=== PATIENT | male | born 1955 ===

== ENCOUNTER 2016-12-28 00:20 | Inpatient (IN) | payer OTHER ==
[2016-12-28 00:20] VITALS: BMI 34.0
[2016-12-28] MEDS ORDERED: Sodium Chloride 0.9% 1,000 ML IV STA ×2 (00:39→01:04)
[2016-12-28] MEDS ORDERED: Insulin Regular 100 units/ml IV ONE (01:04)
--- NOTE | 2016-12-28 01:06 | ED PDOC ---
HPI: Abdomen Time Seen by Provider: 12/28/16 00:25 Chief Complaint (Nursing): Abdominal Pain Chief Complaint (Provider): Abdominal Pain, Nausea, Vomiting History Per: Patient History/Exam Limitations: no limitations Onset/Duration Of Symptoms: Days (3 days) Current Symptoms Are (Timing): Still Present Pain Scale Rating Of: 8 Location Of Pain/Discomfort: Epigastric Associated Symptoms: Other (Also denies associated shortness of breath and fever.). denies: Fever, Diarrhea, Chest Pain Exacerbating Factors: denies: Cough Additional Complaint(s): Baljinder Romero, a 61 year old male, with history of hypertension,diabetes and gastroparesis presents to the ED with abdominal pain, nausea and vomiting x3( non bloody, non bilious). Patient is well known by the provider for multiple visits to the ED related to his current complaint. The patient reports that he has had 3 days of epigastric pain associated with nausea and vomiting. He also reports, that he just returned back from a trip to [place] where he initially began to feel ill. The patient sates that his pain is consistent with previous gastroparesis attacks and rates his pain at an 8/10 on the pain scale. Denies associated diarrhea, shortness of breath, cough, fever and chest pain. PMD: Quincy Smith Past Medical History Reviewed: Historical Data, Nursing Documentation, Vital Signs Vital Signs: Last Vital Signs Temp 97.9 F 12/28/16 00:29 Pulse 115 H 12/28/16 00:29 Resp 16 12/28/16 00:29 BP 199/90 H 12/28/16 00:29 Pulse Ox 99 12/28/16 02:30 - Medical History PMH: Diabetes, HTN, Hypercholesterolemia, Kidney Stones, Pancreatitis Denies: HIV, Chronic Kidney Disease, Sexually Transmitted Disease Other PMH: Gastroparesis - Surgical History Surgical History: Cholecystectomy - Family History Family History: States: [place] (Father of heart attack) - Social History Current smoker - smoking cessation education provided: No Ex-Smoker (has not smoked in the last 12 months): No Alcohol: None Drugs: Denies - Home Medications Home Medications: Ambulatory Orders Medication Instructions Recorded Atorvastatin Calcium [Lipitor] 10 mg PO DAILY #0 tablet 03/16/16 Furosemide [Lasix] 40 mg PO DAILY #0 tab 04/14/16 Glimepiride [Amaryl] 4 mg PO BID #0 tablet 07/05/16 Lisinopril [Zestril] 10 mg PO HS #0 tab 07/05/16 Metformin HCl [Glucophage] 1,000 mg PO BID #0 tablet 07/05/16 Metoclopramide [Reglan] 10 mg PO TID #0 tab 07/05/16 Gabapentin [Neurontin] 300 mg PO TID 08/14/16 Oxycodone HCl/Acetaminophen 1 tab PO Q6H PRN 08/14/16 [Percocet 7.5-325 mg Tablet] Pioglitazone [Actos] 30 mg PO DAILY 08/14/16 Insulin Detemir [Levemir] 42 units SC HS 10/13/16 Insulin Lispro [Humalog (Insulin 42 units SC TID 12/28/16 Lispro)] Metoprolol Succinate [Toprol XL] 25 mg PO DAILY 12/28/16 - Allergies Allergies/Adverse Reactions: Allergies Allergy/AdvReac Type Severity Reaction Status Date / Time iodine Allergy URTICARIA Verified 10/16/16 11:38 Review of Systems Constitutional: Negative for: Fever Cardiovascular: Negative for: Chest Pain Respiratory: Negative for: Cough, Shortness of Breath Gastrointestinal: Positive for: Nausea, Vomiting (x3; non bloody;non bilious), Abdominal Pain. Negative for: Diarrhea Physical Exam - Reviewed Nursing Documentation Reviewed: Yes Vital Signs Reviewed: Yes - Physical Exam Appears: Positive for: Uncomfortable Head Exam: Positive for: ATRAUMATIC, NORMOCEPHALIC Skin: Positive for: Normal Color, Warm, Dry ENT: Positive for: Other (Mucous membranes are tacky) Neck: Positive for: Normal, Painless ROM, Supple Cardiovascular/Chest: Positive for: Regular Rate, Rhythm. Negative for: Chest Non Tender, Tachycardia Respiratory: Positive for: Normal Breath Sounds. Negative for: Wheezing, Respiratory Distress Gastrointestinal/Abdominal: Positive for: Soft, Tenderness (Epigastric tenderness) Back: Positive for: Normal Inspection. Negative for: L CVA Tenderness, R CVA Tenderness Extremity: Positive for: Normal ROM. Negative for: Tenderness, Deformity, Swelling Neurologic/Psych: Positive for: Alert, Oriented - Laboratory Results Result Diagrams: 12/28/16 01:16 12/28/16 01:16 - ECG O2 Sat by Pulse Oximetry: 99 (RA) Pulse Ox Interpretation: Normal Medical Decision Making Medical Decision Makin:25 Initial Impression: 61 year old male presenting with abdominal pain, nausea and vomiting in known setting of gastroparesis. Initial Plan: * EKG * CMP * Lactic acid plasma * Lipase * Urine dipstick * CBC * Portable CXR * Dilaudid 2mg IVP * Dilaudid 1mgIVP * Dilaudid 2mg IVP Q4H PRN * HumuLIN R 8 units IV * Lasix 40mg PO daily * Levemir 40 units SC HS * Lipitor 10mg PO daily Labs reviewed significant for leukocytosis and hypoglycemia which is consistent with patients multiple previous gastroparetic events. Patient will be admitted for further treatment. Case discussed with Dr. Parra admitting resident contracts law professor who is covering Dr. Smith. Condition: Fair _ Scribe Attestation Documented by Kelly He acting as a scribe for Werner Spears MD Provider Attestation All medical record entries made by the Scribe were at my direction and personally dictated by me. I have reviewed the chart and agree that the record accurately reflects my personal performance of the history, physical exam, medical decision making, and the department course for this patient. I have also personally directed, reviewed, and agree with the discharge instructions and disposition. Disposition - Clinical Impression Clinical Impression: Gastroparesis diabeticorum - Patient ED Disposition Is Patient to be Admitted: Yes Discussed With : Isac Neal Counseled Patient/Family Regarding: Studies Performed, Diagnosis - Disposition Disposition Time: 01:00 Condition: FAIR
[2016-12-28 01:19] LABS: BASO # 0.1 K/uL (0.0-0.2); BASO % 0.5 % (0.0-2.0); EOS % 0.1 % (0.0-4.0); HEMATOCRIT 43.2 % (35.0-51.0); LYMPH # 1.8 K/uL (1.0-4.3); LYMPH % 9.9 % (20.0-40.0); MEAN CELL VOLUME 78.8 fl (80.0-94.0); MEAN CORPUSCULAR HEMOGLOBIN 25.3 pg (27.0-31.0); MEAN CORPUSCULAR HGB CONC 32.2 g/dL (33.0-37.0); MEAN PLATELET VOLUME 9.4 fl (7.2-11.7); MONO # 1.7 K/uL (0.0-0.8); MONO % 9.1 % (0.0-10.0); NEUT % 80.4 % (50.0-75.0); PLATELET COUNT 259 K/uL (130-400); RED CELL DISTRIBUTION WIDTH 15.7 % (11.5-14.5); WHITE BLOOD COUNT 18.6 K/uL (4.8-10.8)
[2016-12-28 01:27] LABS: ALB/GLOB RATIO 1.4 (1.0-2.1); ALKALINE PHOSPHATASE 54 U/L (38-126); ALT/SGPT 28 U/L (21-72); AST/SGOT 20 U/L (17-59); BLOOD UREA NITROGEN 19 mg/dl (9-20); CALCIUM 9.1 mg/dL (8.4-10.2); CARBON DIOXIDE 19 mmol/L (22-30); CHLORIDE 90 mmol/L (98-107); GFR AFRICAN-AMERICAN > 60; GLUCOSE,RANDOM 352 mg/dL (75-110); POTASSIUM 4.3 MMOL/L (3.6-5.0); SODIUM 125 mmol/l (132-148); TOTAL PROTEIN 7.8 G/DL (6.3-8.2)
--- NOTE | 2016-12-28 01:57 | CP.PCM.HP ---
Addendum entered and electronically signed by Kemi George MD 12/28/16 13:36: Patient was seen and examined at bedside this morning with Dr. Tang. Patient feeling better at this evaluation. Denies nausea and vomiting, but still complaining of mild periumbilical abdominal pain. Patient reports this is the similar pain that he has had for last years. Denies CP, SOB,chills, diarrheas, or other complains. Alert, awake, and oriented X 3 CV: RRR, normal S1, S2 Respiratory: clear to auscultation bilateral abd: soft, mild diffuse tender to palpation, no rebound, no rigidity or guarding noted. Normal bowel sounds. ext: no edema, no calf tenderness noted Plan:Advance diet to liquid diet, if tolerated continue advancing to soft diet and regular diet. -F/U repeat BMP tomorrow -Will continue monitoring case discussed with Dr. Tang Original Note: <Isac Neal - Last Filed: 12/28/16 02:13> History of Present Illness - History of Present Illness History of Present Illness: 61 male with PMHx of T2DM, HTN, diabetic neuropathy, gastroparesis, presented to ED with complaints of vomiting and abdominal pain x 3 days. Patient states was in [place] for vacation for the last 10 days and was in his usual state of health. However, 3 days ago began with abdominal pain and vomiting. Abdominal pain is similar to pain in the past episodes of gastroparesis located epigastric and vomiting was non-bloody/non-bilous. Patient did not want to be seen at hospital in [place], therefore when he landed today, he came right to ED. Patient has been admitted for similar complaints in the past. Patient denies fever, chills, palpitations, chest pain, diarrhea, headache, weakness, numbness. Patient has also been evaluated by GI Dr Suarez previously for gastroparesis. Of note, patient admits to not taking his medications in previous 3 days due to symptoms. PMD: Dr. Mcdonald PMH: DM w/Gastroparesis, HTN, HLD, Diabetic neuropathy, Drug Use Hx PSH: Lap CCY Allergies: IV contrast (hives) Meds: As per chart POC 342 in ED, 1L bolus of NS given, 8U of Insulin given. 2mg Dilaudid given. Afebrile. Present on Admission - Present on Admission Any Indicators Present on Admission: Yes History of Uncontrolled Diabetes: Yes Review of Systems - Review of Systems All systems: reviewed and no additional remarkable complaints except (mentioned in HPI) Past Patient History - Infectious Disease Hx of Infectious Diseases: None - Tetanus Immunizations Tetanus Immunization: Unknown - Past Medical History & Family History Past Medical History?: Yes - Past Social History Smoking Status: Never Smoked - CARDIAC Hx Hypercholesterolemia: Yes Hx Hypertension: Yes - PULMONARY Hx Respiratory Disorders: No - NEUROLOGICAL Hx Neurological Disorder: No - HEENT Hx HEENT Problems: No - RENAL Hx Chronic Kidney Disease: No Hx Kidney Stones: Yes - ENDOCRINE/METABOLIC Hx Endocrine Disorders: Yes (DM2) - HEMATOLOGICAL/ONCOLOGICAL Hx Human Immunodeficiency Virus (HIV): No - INTEGUMENTARY Hx Dermatological Problems: No - MUSCULOSKELETAL/RHEUMATOLOGICAL Hx Musculoskeletal Disorders: No Hx Falls: No - GASTROINTESTINAL Hx Pancreatitis: Yes - GENITOURINARY/GYNECOLOGICAL Hx Sexually Transmitted Disorders: No - PSYCHIATRIC Hx Psychophysiologic Disorder: No Hx Substance Use: No - SURGICAL HISTORY Hx Cholecystectomy: Yes - ANESTHESIA Hx Anesthesia: Yes Hx Anesthesia Reactions: No Hx Malignant Hyperthermia: No Meds Allergies/Adverse Reactions: Allergies Allergy/AdvReac Type Severity Reaction Status Date / Time iodine Allergy URTICARIA Verified 10/16/16 11:38 Physical Exam - Constitutional Appears: Non-toxic, In Acute Distress (due to pain) - Head Exam Head Exam: ATRAUMATIC, NORMAL INSPECTION, NORMOCEPHALIC - Eye Exam Eye Exam: EOMI, Normal appearance - ENT Exam ENT Exam: Normal Exam - Neck Exam Neck exam: Positive for: Normal Inspection - Respiratory Exam Respiratory Exam: Clear to Auscultation Bilateral, NORMAL BREATHING PATTERN. absent: Decreased Breath Sounds, Rhonchi, Wheezes - Cardiovascular Exam Cardiovascular Exam: REGULAR RHYTHM, RRR, +S1, +S2 - GI/Abdominal Exam GI & Abdominal Exam: Hyperactive Bowel Sounds, Soft, Tenderness (diffuse) - Extremities Exam Extremities exam: Positive for: normal inspection. Negative for: calf tenderness, pedal edema - Back Exam Back exam: NORMAL INSPECTION - Neurological Exam Neurological exam: Alert, Oriented x3 - Psychiatric Exam Psychiatric exam: Normal Affect, Normal Mood - Skin Skin Exam: Dry, Intact, Normal Color, Warm Results - Vital Signs Recent Vital Signs: Last Vital Signs Temp 97.9 F 12/28/16 00:29 Pulse 115 H 12/28/16 00:29 Resp 16 12/28/16 00:29 BP 199/90 H 12/28/16 00:29 Pulse Ox 99 12/28/16 01:06 - Labs Result Diagrams: 12/28/16 01:16 12/28/16 01:16 Labs: Laboratory Results - last 24 hr 12/28/16 12/28/16 12/28/16 01:16 01:16 01:16 WBC 18.6 H D RBC 5.48 Hgb 13.9 Hct 43.2 MCV 78.8 L MCH 25.3 L MCHC 32.2 L RDW 15.7 H Plt Count 259 MPV 9.4 Neut % (Auto) 80.4 H Lymph % (Auto) 9.9 L [place] % (Auto) 9.1 Eos % (Auto) 0.1 Baso % (Auto) 0.5 Neut # 15.0 H Lymph # 1.8 [place] # 1.7 H Eos # 0.0 Baso # 0.1 Sodium 125 L Potassium 4.3 Chloride 90 L Carbon Dioxide 19 L Anion Gap 20 BUN 19 Creatinine 0.7 L Est GFR ( Amer) > 60 Est GFR (Non-Af Amer) > 60 Random Glucose 352 H Lactic Acid 1.1 Calcium 9.1 Total Bilirubin 1.0 AST 20 ALT 28 Alkaline Phosphatase 54 Total Protein 7.8 Albumin 4.5 Globulin 3.3 Albumin/Globulin Ratio 1.4 Assessment & Plan - Assessment and Plan (Free Text) Assessment: 61 yo male with PMHx of T2DM, HTN, diabetic neuropathy, gastroparesis admitted for intractable abdominal pain and vomiting 2ndary to diabetic gastroparesis with associated hyponatremia. Plan: 1) Intractable abdominal pain, secondary to gastroparesis - Vitals stable except for elevated BP - Pain control with Dilaudid - Alternating Zofran/Reglan - NPO diet, advance as tolerated - Continue to monitor - Due to multiple admissions/ED visits and poor IV access requiring PICC, consider more permanent IV access via port-a-cath. 2) Nausea & vomiting, likely 2/2 gastroparesis - Zofran 4mg, IV, Q6H - Reglan 10mg, IV, ACTID - Pepcid 20mg, BID, PO 3) Leukocytosis - Most c/w stress response given absence of febrile illness, no dysuria, CXR w/ o changes when compared to prior. - Repeat CBC in AM 4) T2DM, controlled - Poorly controlled diabetic, no signs of DKA or hyperosmolar at this time. - Accu-checks ACHS - Insulin sliding scale (Medium) - Levemir 40U HS ordered - held home meds including daytime insulin due to decreased caloric intake 5) Hyponatremia, moderate - Likely secondary to GI losses - s/p 2L of NS - c/w 125cc/hr of NS - repeat chemistries in AM 6) Hypertension, uncontrolled - Likely due to medication non-compliance and pain - Restart home medications - Continue to monitor on telemetry floor 7) DVT prophylaxis -Lovenox 40mg, SC, Daily - Date & Time Date: 12/28/16 Time: 02:04 <Quincy Mcdonald - Last Filed: 12/29/16 07:10> Results - Vital Signs Recent Vital Signs: Last Vital Signs Temp 98.4 F 12/29/16 05:23 Pulse 79 12/29/16 05:23 Resp 18 12/29/16 05:23 BP 124/66 12/29/16 05:23 Pulse Ox 97 12/29/16 05:23 - Labs Result Diagrams: 12/28/16 07:00 12/28/16 08:30 Labs: Laboratory Results - last 24 hr 12/28/16 12/28/16 12/28/16 05:43 07:00 08:30 WBC 15.9 H RBC 4.88 Hgb 12.4 Hct 38.8 MCV 79.5 L MCH 25.5 L MCHC 32.1 L RDW 15.7 H Plt Count 219 MPV 9.0 Neut % (Auto) 69.2 Lymph % (Auto) 16.4 L [place] % (Auto) 12.7 H Eos % (Auto) 0.8 Baso % (Auto) 0.9 Neut # 11.1 H Lymph # 2.6 [place] # 2.0 H Eos # 0.1 Baso # 0.1 Sodium 129 L Potassium 3.6 Chloride 98 Carbon Dioxide 21 L Anion Gap 14 BUN 14 Creatinine 0.6 L Est GFR ( Amer) > 60 Est GFR (Non-Af Amer) > 60 POC Glucose (mg/dL) 228 H Random Glucose 224 H Calcium 7.9 L Total Bilirubin 0.7 AST 17 ALT 25 Alkaline Phosphatase 42 Total Protein 6.3 Albumin 3.5 D Globulin 2.7 Albumin/Globulin Ratio 1.3 12/28/16 12/28/16 12/28/16 10:59 16:23 22:12 WBC RBC Hgb Hct MCV MCH MCHC RDW Plt Count MPV Neut % (Auto) Lymph % (Auto) [place] % (Auto) Eos % (Auto) Baso % (Auto) Neut # Lymph # [place] # Eos # Baso # Sodium Potassium Chloride Carbon Dioxide Anion Gap BUN Creatinine Est GFR ( Amer) Est GFR (Non-Af Amer) POC Glucose (mg/dL) 226 H 244 H 253 H Random Glucose Calcium Total Bilirubin AST ALT Alkaline Phosphatase Total Protein Albumin Globulin Albumin/Globulin Ratio 12/29/16 05:10 WBC RBC Hgb Hct MCV MCH MCHC RDW Plt Count MPV Neut % (Auto) Lymph % (Auto) [place] % (Auto) Eos % (Auto) Baso % (Auto) Neut # Lymph # [place] # Eos # Baso # Sodium Potassium Chloride Carbon Dioxide Anion Gap BUN Creatinine Est GFR ( Amer) Est GFR (Non-Af Amer) POC Glucose (mg/dL) 146 H Random Glucose Calcium Total Bilirubin AST ALT Alkaline Phosphatase Total Protein Albumin Globulin Albumin/Globulin Ratio Attending/Attestation - Attestation I have personally seen and examined this patient.: Yes I have fully participated in the care of the patient.: Yes I have reviewed all pertinent clinical information: Yes
[2016-12-28 02:53] LABS: PARTIAL THROMBOPLASTIN TIME 25.8 SECONDS (23.3-32.5)
[2016-12-28 03:23] LABS: RBC URINE 9 /hpf (0-3); URINE BILIRUBIN NEGATIVE (NEGATIVE); URINE BLOOD MODERATE (NEGATIVE); URINE COLOR YELLOW (YELLOW); URINE GLUCOSE (UA) >=500 mg/dL (Normal); URINE KETONE 80 mg/dL (NEGATIVE); URINE LEUKOCYTE ESTERASE NEG Leu/uL (Negative); URINE PROTEIN 100 mg/dL (NEGATIVE); URINE UROBILINOGEN 0.2-1.0 mg/dL (0.2-1.0); WBC URINE < 1 /hpf (0-5)
[2016-12-28 04:19] LABS: NEUTROPHIL 76 % (42-75); REACTIVE LYMPHOCYTES 3 % (0-0); TOTAL CELLS COUNTED 100
[2016-12-28] MEDS: Sodium Chloride 0.9% 1,000 ML IV SCH ×3 (06:02→19:50)
[2016-12-28] MEDS: Insulin Regular 100 units/ml SC SCH ×4 (06:51→22:26)
[2016-12-28 08:36] LABS: BASO # 0.1 K/uL (0.0-0.2); BASO % 0.9 % (0.0-2.0); EOS # 0.1 K/uL (0.0-0.7); EOS % 0.8 % (0.0-4.0); HEMATOCRIT 38.8 % (35.0-51.0); LYMPH # 2.6 K/uL (1.0-4.3); LYMPH % 16.4 % (20.0-40.0); MEAN CELL VOLUME 79.5 fl (80.0-94.0); MEAN CORPUSCULAR HEMOGLOBIN 25.5 pg (27.0-31.0); MEAN CORPUSCULAR HGB CONC 32.1 g/dL (33.0-37.0); MONO % 12.7 % (0.0-10.0); NEUT # 11.1 K/uL (1.8-7.0); NEUT % 69.2 % (50.0-75.0); RED CELL DISTRIBUTION WIDTH 15.7 % (11.5-14.5); WHITE BLOOD COUNT 15.9 K/uL (4.8-10.8)
--- NOTE | 2016-12-28 08:53 | RAD ---
HISTORY: Admission. Portable study 01:33. COMPARISON: 10/16/2016. FINDINGS: LUNGS: No active pulmonary disease. PLEURA: No significant pleural effusion identified, no pneumothorax apparent. CARDIOVASCULAR: No radiographic findings to suggest acute or significant cardiovascular disease. OSSEOUS STRUCTURES: No significant abnormalities. VISUALIZED UPPER ABDOMEN: Normal. OTHER FINDINGS: None. IMPRESSION: No active disease. No significant interval change compared to the prior examination(s).
[2016-12-28 09:04] LABS: ALB/GLOB RATIO 1.3 (1.0-2.1); ALKALINE PHOSPHATASE 42 U/L (38-126); ALT/SGPT 25 U/L (21-72); AST/SGOT 17 U/L (17-59); BILIRUBIN,TOTAL 0.7 mg/dl (0.2-1.3); BLOOD UREA NITROGEN 14 mg/dl (9-20); CALCIUM 7.9 mg/dL (8.4-10.2); CARBON DIOXIDE 21 mmol/L (22-30); CHLORIDE 98 mmol/L (98-107); GFR AFRICAN-AMERICAN > 60; GLUCOSE,RANDOM 224 mg/dL (75-110); POTASSIUM 3.6 MMOL/L (3.6-5.0); SODIUM 129 mmol/l (132-148); TOTAL PROTEIN 6.3 G/DL (6.3-8.2)
[2016-12-28] MEDS: Enoxaparin 40 mg Syringe SC SCH (12:50)
--- NOTE | 2016-12-28 19:11 | CARD ---
APPROVED REPORT EKG Measurement Heart [id number] <Conclusion> Sinus tachycardia Possible Left atrial enlargement Borderline ECG
[2016-12-28] MEDS ORDERED: Insulin Detemir 100 Units/ml Inj SC SCH (22:00)
[2016-12-29] MEDS: Insulin Regular 100 units/ml SC SCH ×3 (06:32→16:53)
[2016-12-29 07:42] LABS: HEMATOCRIT 43.4 % (35.0-51.0); MEAN CELL VOLUME 80.4 fl (80.0-94.0); MEAN CORPUSCULAR HEMOGLOBIN 25.5 pg (27.0-31.0); MEAN CORPUSCULAR HGB CONC 31.7 g/dL (33.0-37.0); RED CELL DISTRIBUTION WIDTH 15.7 % (11.5-14.5); WHITE BLOOD COUNT 13.9 K/uL (4.8-10.8)
[2016-12-29 07:59] LABS: BLOOD UREA NITROGEN 10 mg/dl (9-20); CALCIUM 8.4 mg/dL (8.4-10.2); CARBON DIOXIDE 24 mmol/L (22-30); CHLORIDE 99 mmol/L (98-107); GFR AFRICAN-AMERICAN > 60; GLUCOSE,RANDOM 161 mg/dL (75-110); POTASSIUM 3.3 MMOL/L (3.6-5.0); SODIUM 133 mmol/l (132-148)
[2016-12-29] MEDS ORDERED: Potassium Chloride 20 mEq ER Tab PO ONE (08:28)
--- NOTE | 2016-12-29 08:37 | CP.PCM.DIS ---
<Kemi George - Last Filed: 12/29/16 09:13> Provider - Provider Date of Admission: 12/28/16 00:48 Attending physician: Quincy Mcdonald MD Primary care physician: Quincy Mcdonald MD Time Spent in preparation of Discharge (in minutes): 30 Diagnosis - Discharge Diagnosis (1) Gastroparesis Status: Chronic Priority: High Comment: Improved. Tolerating PO. F/U with GI and PMD as outpatient. (2) Abdominal pain Status: Acute Priority: High Comment: Most likely due to Gastroparesis. Resolving. (3) Hyponatremia Status: Acute Priority: Medium Comment: Resolved during admission (4) Diabetes mellitus type 2 in obese Status: Chronic Priority: Medium Comment: Continue with current managment and follow up as outpatient with PMD. Hospital Course - Lab Results Lab Results: Most Recent Lab Values WBC 13.9 K/uL (4.8-10.8) H 12/29/16 06:00 RBC 5.39 Mil/uL (4.40-5.90) 12/29/16 06:00 Hgb 13.8 g/dL (12.0-18.0) 12/29/16 06:00 Hct 43.4 % (35.0-51.0) 12/29/16 06:00 MCV 80.4 fl (80.0-94.0) 12/29/16 06:00 MCH 25.5 pg (27.0-31.0) L 12/29/16 06:00 MCHC 31.7 g/dL (33.0-37.0) L 12/29/16 06:00 RDW 15.7 % (11.5-14.5) H 12/29/16 06:00 Plt Count 216 K/uL (130-400) 12/29/16 06:00 MPV 9.0 fl (7.2-11.7) 12/28/16 07:00 Neut % (Auto) 69.2 % (50.0-75.0) 12/28/16 07:00 Lymph % (Auto) 16.4 % (20.0-40.0) L 12/28/16 07:00 [place] % (Auto) 12.7 % (0.0-10.0) H 12/28/16 07:00 Eos % (Auto) 0.8 % (0.0-4.0) 12/28/16 07:00 Baso % (Auto) 0.9 % (0.0-2.0) 12/28/16 07:00 Neut # 11.1 K/uL (1.8-7.0) H 12/28/16 07:00 Lymph # 2.6 K/uL (1.0-4.3) 12/28/16 07:00 [place] # 2.0 K/uL (0.0-0.8) H 12/28/16 07:00 Eos # 0.1 K/uL (0.0-0.7) 12/28/16 07:00 Baso # 0.1 K/uL (0.0-0.2) 12/28/16 07:00 Neutrophils % (Manual) 76 % (42-75) H 12/28/16 01:16 Lymphocytes % (Manual) 9 % (20-50) L 12/28/16 01:16 Reactive Lymphs % 3 % (0-0) H 12/28/16 01:16 Monocytes % (Manual) 12 % (0-10) H 12/28/16 01:16 Platelet Estimate Normal (NORMAL) 12/28/16 01:16 Anisocytosis (manual) Slight 12/28/16 01:16 Target Cells Slight 12/28/16 01:16 Tear Drop Cells Slight 12/28/16 01:16 PT 10.7 SECONDS (9.6-11.2) 12/28/16 02:23 INR 1.03 (0.92-1.08) 12/28/16 02:23 APTT 25.8 SECONDS (23.3-32.5) 12/28/16 02:23 Sodium 133 mmol/l (132-148) 12/29/16 06:00 Potassium 3.3 MMOL/L (3.6-5.0) L 12/29/16 06:00 Chloride 99 mmol/L (98-107) 12/29/16 06:00 Carbon Dioxide 24 mmol/L (22-30) 12/29/16 06:00 Anion Gap 13 (10-20) 12/29/16 06:00 BUN 10 mg/dl (9-20) 12/29/16 06:00 Creatinine 0.6 mg/dL (0.8-1.5) L 12/29/16 06:00 Est GFR ( Amer) > 60 12/29/16 06:00 Est GFR (Non-Af Amer) > 60 12/29/16 06:00 POC Glucose (mg/dL) 146 mg/dL (65-110) H 12/29/16 05:10 Random Glucose 161 mg/dL (75-110) H 12/29/16 06:00 Lactic Acid 1.1 MMOL/L (0.7-2.1) 12/28/16 01:16 Calcium 8.4 mg/dL (8.4-10.2) 12/29/16 06:00 Total Bilirubin 0.7 mg/dl (0.2-1.3) 12/28/16 08:30 AST 17 U/L (17-59) 12/28/16 08:30 ALT 25 U/L (21-72) 12/28/16 08:30 Alkaline Phosphatase 42 U/L (38-126) 12/28/16 08:30 Total Protein 6.3 G/DL (6.3-8.2) 12/28/16 08:30 Albumin 3.5 g/dL (3.5-5.0) D 12/28/16 08:30 Globulin 2.7 gm/dL (2.2-3.9) 12/28/16 08:30 Albumin/Globulin Ratio 1.3 (1.0-2.1) 12/28/16 08:30 Lipase 85 U/L (23-300) 12/28/16 01:48 Urine Color Yellow (YELLOW) 12/28/16 03:14 Urine Clarity Clear (Clear) 12/28/16 03:14 Urine pH 6.0 (5.0-8.0) 12/28/16 03:14 Ur Specific [place] 1.023 (1.003-1.030) 12/28/16 03:14 Urine Protein 100 mg/dL (NEGATIVE) 12/28/16 03:14 Urine Glucose (UA) >=500 mg/dL (Normal) 12/28/16 03:14 Urine Ketones 80 mg/dL (NEGATIVE) 12/28/16 03:14 Urine Blood Moderate (NEGATIVE) 12/28/16 03:14 Urine Nitrate Negative (NEGATIVE) 12/28/16 03:14 Urine Bilirubin Negative (NEGATIVE) 12/28/16 03:14 Urine Urobilinogen 0.2-1.0 mg/dL (0.2-1.0) 12/28/16 03:14 Ur Leukocyte Esterase Neg Jennifer/uL (Negative) 12/28/16 03:14 Urine RBC (Auto) 9 /hpf (0-3) H 12/28/16 03:14 Urine Microscopic WBC < 1 /hpf (0-5) 12/28/16 03:14 Ur Squamous Epith Cells < 1 /hpf (0-5) 12/28/16 03:14 - Hospital Course Hospital Course: 61 male with PMHx of T2DM, HTN, diabetic neuropathy, gastroparesis, presented to ED complaining of vomiting and abdominal pain x 3 days admitted for intractable abdominal pain and vomiting secondary to diabetic gastroparesis with associated hyponatremia. During admission patient was manage with NPO status and diet was advance as tolerated, antiemetics, and home medications. Hyponatremia resolved during admission. Patient was seen and examined at bedside this morning with Dr. Tang, and patient denies nausea,vomiting or diarrhea, and reports that he is tolerating PO well. Stable to be discharge home an will follow as outpatient with PMD in one week or as needed, and f/u with GI doctor for further Gastroparesis management. Home medications: Continue with current home medications Continue accu-checks before insulin administration - Date & Time of H&P Date of H&P: 12/28/16 Time of H&P: 01:55 Discharge Exam - Head Exam Head Exam: ATRAUMATIC, NORMOCEPHALIC - ENT Exam ENT Exam: Mucous Membranes Moist - Respiratory Exam Respiratory Exam: Clear to PA & Lateral, NORMAL BREATHING PATTERN - Cardiovascular Exam Cardiovascular Exam: REGULAR RHYTHM, +S1, +S2 - GI/Abdominal Exam GI & Abdominal Exam: Normal Bowel Sounds, Soft, Tenderness (very mild tender to palpation , but no rebound tenderness, no rigidity or guarding noted). absent: Guarding, Rebound, Rigid - Extremities Exam Extremities exam: normal inspection Additional comments: No edema in lower extremities, no calf tenderness, Clara's sign negative bilateral - Neurological Exam Neurological exam: Alert, Oriented x3 - Psychiatric Exam Psychiatric exam: Normal Affect, Normal Mood - Skin Skin Exam: Dry, Intact, Normal Color Discharge Plan - Follow Up Plan Condition: GOOD Disposition: HOME/ ROUTINE Patient education suggested?: Yes Instructions: Acute Abdominal Pain (DC), Acute Abdominal Pain (GEN) Additional Instructions: F/U with PMD Dr. Mcdonald or Dr. Tang in 1 week after discharge. F/U with GI doctor as outpatient. ER precautions given Referrals: Quincy Mcdonald MD [Primary Care Provider] - <Riki Tang - Last Filed: 12/31/16 06:54> Provider - Provider Date of Admission: 12/28/16 00:48 Attending physician: Quincy Mcdonald MD Primary care physician: Quincy Mcdonald MD Hospital Course - Lab Results Lab Results: Most Recent Lab Values WBC 13.9 K/uL (4.8-10.8) H 12/29/16 06:00 RBC 5.39 Mil/uL (4.40-5.90) 12/29/16 06:00 Hgb 13.8 g/dL (12.0-18.0) 12/29/16 06:00 Hct 43.4 % (35.0-51.0) 12/29/16 06:00 MCV 80.4 fl (80.0-94.0) 12/29/16 06:00 MCH 25.5 pg (27.0-31.0) L 12/29/16 06:00 MCHC 31.7 g/dL (33.0-37.0) L 12/29/16 06:00 RDW 15.7 % (11.5-14.5) H 12/29/16 06:00 Plt Count 216 K/uL (130-400) 12/29/16 06:00 MPV 9.0 fl (7.2-11.7) 12/28/16 07:00 Neut % (Auto) 69.2 % (50.0-75.0) 12/28/16 07:00 Lymph % (Auto) 16.4 % (20.0-40.0) L 12/28/16 07:00 [place] % (Auto) 12.7 % (0.0-10.0) H 12/28/16 07:00 Eos % (Auto) 0.8 % (0.0-4.0) 12/28/16 07:00 Baso % (Auto) 0.9 % (0.0-2.0) 12/28/16 07:00 Neut # 11.1 K/uL (1.8-7.0) H 12/28/16 07:00 Lymph # 2.6 K/uL (1.0-4.3) 12/28/16 07:00 [place] # 2.0 K/uL (0.0-0.8) H 12/28/16 07:00 Eos # 0.1 K/uL (0.0-0.7) 12/28/16 07:00 Baso # 0.1 K/uL (0.0-0.2) 12/28/16 07:00 Neutrophils % (Manual) 76 % (42-75) H 12/28/16 01:16 Lymphocytes % (Manual) 9 % (20-50) L 12/28/16 01:16 Reactive Lymphs % 3 % (0-0) H 12/28/16 01:16 Monocytes % (Manual) 12 % (0-10) H 12/28/16 01:16 Platelet Estimate Normal (NORMAL) 12/28/16 01:16 Anisocytosis (manual) Slight 12/28/16 01:16 Target Cells Slight 12/28/16 01:16 Tear Drop Cells Slight 12/28/16 01:16 PT 10.7 SECONDS (9.6-11.2) 12/28/16 02:23 INR 1.03 (0.92-1.08) 12/28/16 02:23 APTT 25.8 SECONDS (23.3-32.5) 12/28/16 02:23 Sodium 133 mmol/l (132-148) 12/29/16 06:00 Potassium 3.3 MMOL/L (3.6-5.0) L 12/29/16 06:00 Chloride 99 mmol/L (98-107) 12/29/16 06:00 Carbon Dioxide 24 mmol/L (22-30) 12/29/16 06:00 Anion Gap 13 (10-20) 12/29/16 06:00 BUN 10 mg/dl (9-20) 12/29/16 06:00 Creatinine 0.6 mg/dL (0.8-1.5) L 12/29/16 06:00 Est GFR ( Amer) > 60 12/29/16 06:00 Est GFR (Non-Af Amer) > 60 12/29/16 06:00 POC Glucose (mg/dL) 204 mg/dL (65-110) H 12/29/16 15:48 Random Glucose 161 mg/dL (75-110) H 12/29/16 06:00 Lactic Acid 1.1 MMOL/L (0.7-2.1) 12/28/16 01:16 Calcium 8.4 mg/dL (8.4-10.2) 12/29/16 06:00 Total Bilirubin 0.7 mg/dl (0.2-1.3) 12/28/16 08:30 AST 17 U/L (17-59) 12/28/16 08:30 ALT 25 U/L (21-72) 12/28/16 08:30 Alkaline Phosphatase 42 U/L (38-126) 12/28/16 08:30 Total Protein 6.3 G/DL (6.3-8.2) 12/28/16 08:30 Albumin 3.5 g/dL (3.5-5.0) D 12/28/16 08:30 Globulin 2.7 gm/dL (2.2-3.9) 12/28/16 08:30 Albumin/Globulin Ratio 1.3 (1.0-2.1) 12/28/16 08:30 Lipase 85 U/L (23-300) 12/28/16 01:48 Urine Color Yellow (YELLOW) 12/28/16 03:14 Urine Clarity Clear (Clear) 12/28/16 03:14 Urine pH 6.0 (5.0-8.0) 12/28/16 03:14 Ur Specific [place] 1.023 (1.003-1.030) 12/28/16 03:14 Urine Protein 100 mg/dL (NEGATIVE) 12/28/16 03:14 Urine Glucose (UA) >=500 mg/dL (Normal) 12/28/16 03:14 Urine Ketones 80 mg/dL (NEGATIVE) 12/28/16 03:14 Urine Blood Moderate (NEGATIVE) 12/28/16 03:14 Urine Nitrate Negative (NEGATIVE) 12/28/16 03:14 Urine Bilirubin Negative (NEGATIVE) 12/28/16 03:14 Urine Urobilinogen 0.2-1.0 mg/dL (0.2-1.0) 12/28/16 03:14 Ur Leukocyte Esterase Neg Jennifer/uL (Negative) 12/28/16 03:14 Urine RBC (Auto) 9 /hpf (0-3) H 12/28/16 03:14 Urine Microscopic WBC < 1 /hpf (0-5) 12/28/16 03:14 Ur Squamous Epith Cells < 1 /hpf (0-5) 12/28/16 03:14 Attending/Attestation - Attestation I have personally seen and examined this patient.: Yes I have fully participated in the care of the patient.: Yes I have reviewed all pertinent clinical information, including history, physical exam and plan: Yes
[2016-12-29] MEDS: Enoxaparin 40 mg Syringe SC SCH (09:05)
[2016-12-29 13:09] VITALS: RESP 16
[2016-12-29 16:43] VITALS: BP 123/73; PULSE 88; TEMP 98.6; O2SAT 97
== END 2016-12-29 18:05 | disposition home or self-care (01) | DRG 74 ==
LOC: H.ER 00:20 → H.ERHOLD 00:48 → H.TEL 03:20
PROVIDERS: ADMIT Family Medicine; ATTEND Family Medicine
DX: E11.43 Type 2 diabetes mellitus with diabetic autonomic (poly)neuropathy (principal); E87.1 Hypo-osmolality and hyponatremia; I10 Essential (primary) hypertension; K31.84 Gastroparesis; E78.00 Pure hypercholesterolemia, unspecified; E78.5 Hyperlipidemia, unspecified; E66.9 Obesity, unspecified; Z68.34 Body mass index [BMI] 34.0-34.9, adult; Z91.14 Patient's other noncompliance with medication regimen; Z79.4 Long term (current) use of insulin; Z87.442 Personal history of urinary calculi; Z91.041 Radiographic dye allergy status

== ENCOUNTER 2017-01-17 23:31 | Observation (INO) | payer OTHER ==
[2017-01-17 23:31] VITALS: BMI 34.0
[2017-01-18] MEDS ORDERED: Lidocaine 1% Inj (20ml) ONE (00:17)
[2017-01-18] MEDS ORDERED: Lactated Ringer's 1,000 ML IV SCH (01:45)
--- NOTE | 2017-01-18 01:50 | ED PDOC ---
HPI: Abdomen Time Seen by Provider: 01/17/17 23:38 Chief Complaint (Nursing): Abdominal Pain Chief Complaint (Provider): abd pain, vomiting History Per: Patient History/Exam Limitations: no limitations Onset/Duration Of Symptoms: Hrs Outside of [place] travel?: No Current Symptoms Are (Timing): Still Present Additional Complaint(s): 61yo male with PMHx including HTN, hypercholesterolemia, kidney stones, pancreatitis, diabetes, gastroparesis presents to the ED with c/o epigastric abdominal pain and vomiting since 1999 tonight. Patient states he ate pork chops and salad and subsequently developed epigastric pain and 8 or 9 episodes of non-bloody, non-bilious vomiting that was food colored. No bowel movements sine symptoms began. Patient has had this pain before and thinks it's related to pancreatitis or gastroparesis. Past Medical History Reviewed: Historical Data, Nursing Documentation, Vital Signs Vital Signs: Last Vital Signs Temp 98.8 F 01/17/17 23:33 Pulse 115 H 01/17/17 23:33 Resp 16 01/17/17 23:33 BP 172/87 H 01/17/17 23:33 Pulse Ox 97 01/18/17 01:59 - Medical History PMH: Diabetes, HTN, Hypercholesterolemia, Kidney Stones, Pancreatitis Denies: HIV, Chronic Kidney Disease, Sexually Transmitted Disease Other PMH: gastroparesis - Surgical History Surgical History: Cholecystectomy - Family History Family History: States: [place] (Father of heart attack) - Home Medications Home Medications: Ambulatory Orders Medication Instructions Recorded Atorvastatin Calcium [Lipitor] 10 mg PO DAILY #0 tablet 03/16/16 Furosemide [Lasix] 40 mg PO DAILY #0 tab 04/14/16 Glimepiride [Amaryl] 4 mg PO BID #0 tablet 07/05/16 Lisinopril [Zestril] 10 mg PO HS #0 tab 07/05/16 Metformin HCl [Glucophage] 1,000 mg PO BID #0 tablet 07/05/16 Metoclopramide [Reglan] 10 mg PO TID #0 tab 07/05/16 Gabapentin [Neurontin] 300 mg PO TID 08/14/16 Oxycodone HCl/Acetaminophen 1 tab PO Q4 PRN 08/14/16 [Percocet 7.5-325 mg Tablet] Pioglitazone [Actos] 30 mg PO DAILY 08/14/16 Insulin Detemir [Levemir] 42 units SC HS 10/13/16 Insulin Lispro [Humalog (Insulin 42 units SC TID 12/28/16 Lispro)] Metoprolol Succinate [Toprol XL] 25 mg PO DAILY 12/28/16 - Allergies Allergies/Adverse Reactions: Allergies Allergy/AdvReac Type Severity Reaction Status Date / Time iodine Allergy URTICARIA Verified 10/16/16 11:38 Review of Systems ROS Statement: Except As Marked, All Systems Reviewed And Found Negative Gastrointestinal: Positive for: Vomiting, Abdominal Pain Physical Exam - Reviewed Nursing Documentation Reviewed: Yes Vital Signs Reviewed: Yes - Physical Exam Appears: Positive for: Well, No Acute Distress Head Exam: Positive for: ATRAUMATIC, NORMAL INSPECTION, NORMOCEPHALIC Skin: Positive for: Normal Color, Warm, Dry Eye Exam: Positive for: Normal appearance, EOMI, PERRL ENT: Positive for: Normal ENT Inspection Neck: Positive for: Normal, Painless ROM, Supple Cardiovascular/Chest: Positive for: Regular Rate, Rhythm. Negative for: Murmur , Tachycardia Respiratory: Positive for: Normal Breath Sounds. Negative for: Wheezing, Respiratory Distress Gastrointestinal/Abdominal: Positive for: Soft, Tenderness (epigastric tenderness to palpation ), Guarding (voluntary guarding ), Other (actively retching ). Negative for: Rebound Back: Positive for: Normal Inspection. Negative for: L CVA Tenderness, R CVA Tenderness Extremity: Positive for: Normal ROM. Negative for: Deformity, Swelling Neurologic/Psych: Positive for: Alert, Oriented - Laboratory Results Result Diagrams: 01/18/17 01:45 01/18/17 01:45 - ECG O2 Sat by Pulse Oximetry: 97 Pulse Ox Interpretation: Normal (RA) Medical Decision Making Medical Decision Makin: Impression: gastroparesis vs. pancreatitis Plan: VBG EKG Labs CXR Dilaudid 1mg IM and IVP, Zofran 4mg IVP, Lactated Ringer's 1000mls/hr IV reassess Of note, patient very difficult to obtain blood work on. Central line placed to obtain IV access and for blood. Please refer to procedure note for further details. 3AM: Pt. continues to have abdominal pain and nausea. Pt. w/ hyperglycemia, small ketones in urine but pH is normal, likely not DKA but more dehydration ketosis because of vomiting. Will aggressivly hydrate and give insulin. Discussed case with FP resident Dr. Negrete. Scribe Attestation: Documented by Jennifer Segovia acting as a scribe for Artie Kruse MD. Provider Scribe Attestation: All medical record entries made by the Scribe were at my direction and personally dictated by me. I have reviewed the chart and agree that the record accurately reflects my personal performance of the history, physical exam, medical decision making, and the department course for this patient. I have also personally directed, reviewed, and agree with the discharge instructions and disposition. Procedures - Central Line Central Line Lumen: triple Central Line Procedure: betadine prep, sterile drapes applied, sterile dressing applied Central Line Postion: femoral (L) Anesthesia: Lidocaine cc's of anesthesia: 5 Complications: none Central Line Post Position: good blood return Progress: No sutures placed. Sterile stat lock placed. Disposition - Clinical Impression Clinical Impression: Gastroparesis diabeticorum, Dehydration, Acute hyperglycemia - Patient ED Disposition Is Patient to be Admitted: Yes - Disposition Referrals: Quincy Mcdonald MD [Staff Provider] - Disposition Time: 03:03 Condition: STABLE
[2017-01-18 01:58] LABS: RBC URINE 2 /hpf (0-3); URINE BILIRUBIN NEGATIVE (NEGATIVE); URINE BLOOD NEGATIVE (NEGATIVE); URINE COLOR YELLOW (YELLOW); URINE GLUCOSE (UA) >=500 mg/dL (Normal); URINE KETONE 20 mg/dL (NEGATIVE); URINE LEUKOCYTE ESTERASE NEG Leu/uL (Negative); URINE PROTEIN 30 mg/dL (NEGATIVE); URINE UROBILINOGEN 0.2-1.0 mg/dL (0.2-1.0); WBC URINE < 1 /hpf (0-5)
[2017-01-18 02:11] LABS: VENOUS BLOOD GAS PCO2 44 mmHg (40-60)
[2017-01-18] MEDS ORDERED: Sodium Chloride 0.9% 1,000 ML IV STA ×2 (02:12→02:35)
[2017-01-18 02:14] LABS: BASO % 0.2 % (0.0-2.0); HEMATOCRIT 42.3 % (35.0-51.0); LYMPH # 1.3 K/uL (1.0-4.3); MEAN CELL VOLUME 79.2 fl (80.0-94.0); MEAN CORPUSCULAR HGB CONC 31.6 g/dL (33.0-37.0); MEAN PLATELET VOLUME 9.6 fl (7.2-11.7); MONO # 0.3 K/uL (0.0-0.8); MONO % 1.8 % (0.0-10.0); NEUT # 16.6 K/uL (1.8-7.0); PLATELET COUNT 307 K/uL (130-400); RED CELL DISTRIBUTION WIDTH 15.6 % (11.5-14.5); WHITE BLOOD COUNT 18.2 K/uL (4.8-10.8)
[2017-01-18 02:20] LABS: ALB/GLOB RATIO 1.3 (1.0-2.1); ALKALINE PHOSPHATASE 85 U/L (38-126); AST/SGOT 16 U/L (17-59); BILIRUBIN,TOTAL 0.6 mg/dl (0.2-1.3); CARBON DIOXIDE 25 mmol/L (22-30); CHLORIDE 96 mmol/L (98-107); GFR AFRICAN-AMERICAN > 60; POTASSIUM 4.8 MMOL/L (3.6-5.0); SODIUM 137 mmol/l (132-148)
[2017-01-18 02:21] LABS: ALT/SGPT 31 U/L (21-72); BLOOD UREA NITROGEN 14 mg/dl (9-20); CALCIUM 9.8 mg/dL (8.4-10.2); LIPASE 45 U/L (23-300)
[2017-01-18 02:25] LABS: GLUCOSE,RANDOM 499 mg/dL (75-110)
[2017-01-18] MEDS ORDERED: Insulin Regular 100 units/ml IV STA (02:34)
[2017-01-18] MEDS ORDERED: Insulin Regular 100 units/ml ONE (02:38)
[2017-01-18 02:52] LABS: NEUTROPHIL 95 % (42-75); TOTAL CELLS COUNTED 100
[2017-01-18 02:54] LABS: LARGE PLATELETS PRESENT
[2017-01-18] MEDS ORDERED: Dextrose 50% SYRINGE Inj (50 ml) IV PRN (03:46)
[2017-01-18] MEDS ORDERED: Glucagon Recombinant 1 mg Inj IM PRN (03:46)
--- NOTE | 2017-01-18 04:10 | CP.PCM.HP ---
History of Present Illness - History of Present Illness History of Present Illness: 61 y/o M with PMH including IDDM2, HTN, HLD, Diabetic neuropathy and Recurrent diabetic gastroparesis presented to ED with a 4 hour history of diffuse abdominal pain and recurrent vomiting. Patient states he was in his usual state of health until shortly after consuming a dinner of pork chops and salad. One hour after dinner, he began to experience nausea which did not improve with zofran. He then noted increasing diffuse abdominal pain which was "sharp", non radiating and 9/10 intensity. He reports associated 8 episodes of non bilious emesis (last episode over 2 hours prior to assessment). Patient denies associated fevers, chills, headache, chest pain, SOB, dysuria or diarrhea. PMD: Dr Smith Present on Admission - Present on Admission Any Indicators Present on Admission: No History of DVT/PE: No History of Uncontrolled Diabetes: Yes Urinary Catheter: No Decubitus Ulcer Present: No Review of Systems - Constitutional Constitutional: absent: Chills, Fever, Headache - EENT Eyes: absent: Change in Vision - Cardiovascular Cardiovascular: absent: Chest Pain, Diaphoresis, Dyspnea, Leg Edema, Palpitations - Respiratory Respiratory: absent: Cough, Hemoptysis, Wheezing - Gastrointestinal Gastrointestinal: Abdominal Pain, Belching, Nausea, Vomiting. absent: Constipation, Diarrhea, Hematemesis - Genitourinary Genitourinary: absent: Dysuria - Neurological Neurological: absent: Confusion, Focal Weakness Past Patient History - Infectious Disease Hx of Infectious Diseases: None - Tetanus Immunizations Tetanus Immunization: Unknown - Past Medical History & Family History Past Medical History?: Yes - Past Social History Smoking Status: Former Smoker Alcohol: None Home Situation {Lives}: With Family - CARDIAC Hx Hypercholesterolemia: Yes Hx Hypertension: Yes - PULMONARY Hx Respiratory Disorders: No - NEUROLOGICAL Hx Neurological Disorder: Yes Other/Comment: DIABETIC NEUROPATHY - HEENT Hx HEENT Problems: No - RENAL Hx Chronic Kidney Disease: No Hx Kidney Stones: Yes - ENDOCRINE/METABOLIC Hx Endocrine Disorders: Yes Hx Diabetes Mellitus Type 2: Yes - HEMATOLOGICAL/ONCOLOGICAL Hx Human Immunodeficiency Virus (HIV): No - INTEGUMENTARY Hx Dermatological Problems: No - MUSCULOSKELETAL/RHEUMATOLOGICAL Hx Falls: No - GASTROINTESTINAL Hx Pancreatitis: Yes - GENITOURINARY/GYNECOLOGICAL Hx Sexually Transmitted Disorders: No - PSYCHIATRIC Hx Substance Use: No - SURGICAL HISTORY Hx Cholecystectomy: Yes - ANESTHESIA Hx Anesthesia: Yes Hx Anesthesia Reactions: No Hx Malignant Hyperthermia: No Meds Allergies/Adverse Reactions: Allergies Allergy/AdvReac Type Severity Reaction Status Date / Time iodine Allergy URTICARIA Verified 10/16/16 11:38 Physical Exam - Constitutional Appears: Other (Uncomfortable) - Head Exam Head Exam: ATRAUMATIC, NORMAL INSPECTION, NORMOCEPHALIC - ENT Exam ENT Exam: Mucous Membranes Dry - Respiratory Exam Respiratory Exam: Clear to Auscultation Bilateral, NORMAL BREATHING PATTERN. absent: Rales, Rhonchi, Wheezes - Cardiovascular Exam Cardiovascular Exam: Tachycardia, REGULAR RHYTHM, +S1, +S2 - GI/Abdominal Exam GI & Abdominal Exam: Distended, Guarding (voluntary), Hyperactive Bowel Sounds, Tenderness (Diffuse abdominal tenderness). absent: Rebound - Extremities Exam Extremities exam: Positive for: normal capillary refill. Negative for: calf tenderness, pedal edema - Neurological Exam Neurological exam: Alert, Oriented x3 - Skin Skin Exam: Dry, Warm Results - Vital Signs Recent Vital Signs: Last Vital Signs Temp 98.8 F 01/17/17 23:33 Pulse 115 H 01/17/17 23:33 Resp 16 01/17/17 23:33 BP 172/87 H 01/17/17 23:33 Pulse Ox 97 01/18/17 03:03 - Labs Result Diagrams: 01/18/17 01:45 01/18/17 01:45 Assessment & Plan - Assessment and Plan (Free Text) Assessment: 61 y/o M with PMH including IDDM2, HTN, HLD, Diabetic neuropathy and Recurrent diabetic gastroparesis presented to ED with a 4 hour history of diffuse abdominal pain and recurrent vomiting. Patient was subsequently admitted with intractable abdominal pain secondary to acute diabetic gastroparesis, dehydration and hyperglycemia. Plan: Intractable abdominal pain -Likely secondary to acute diabetic gastroparesis -Lipase normal -NPO diet -Received 2mg dilaudid IV in ER -Pain control with dilaudid -Zofran 4mg IV Q6H PRN for nausea -Reglan 10mg PO TID Nausea/vomiting -Improving. Last episode of emesis over 2 hours prior to assessment -Associated with dehydration -Zofran PRN -Received 2L NS bolus in ED -Continue IVF IDDM2 with hyperglycemia -Initial blood glucose 499 -Patient has not taken his night time insulin or PO diabetes medications due to abd pain/nausea -VBG pH: 7.40 -Received 10 units IV insulin in ER -Home metformin, actos and glimepiride held -Will continue home levemir of 42 units SC HS -HDSS with meals -Accuchecks ACHS Leukocytosis -Patient has chronic high baseline leukocytosis -WBC at admission: 18.2 which is consistent with prior admissions -Patient currently afebrile Hypertension, uncontrolled -Likely exacerbated by acute pain -Will resume home medications (Lisinopril 10mg PO HS, Metoprolol succinate 25mg PO daily) -Continue telemetry monitoring DVT Prophylaxis -Lovenox 40mg SC daily
[2017-01-18] MEDS: Insulin Regular 100 units/ml SC SCH ×4 (08:08→22:15)
[2017-01-18] MEDS: Lactated Ringer's 1,000 ML IV SCH ×2 (08:08→17:35)
[2017-01-18] MEDS ORDERED: HYDROmorphone 0.5 mg/0.5 ml ISec IVP STA (09:54)
[2017-01-18] MEDS: Enoxaparin 40 mg Syringe SC SCH (11:54)
[2017-01-18] MEDS: Metoprolol Succinate 25 mg XL Tab PO SCH (11:55)
--- NOTE | 2017-01-18 11:56 | RAD ---
PROCEDURE: CHEST RADIOGRAPH, 1 VIEW HISTORY: abd pain COMPARISON: Comparison is made to the previous study dated 12/28/2016 FINDINGS: LUNGS: No evidence of new infiltrate or consolidation in the lungs. PLEURA: No pneumothorax or pleural fluid seen. CARDIOVASCULAR: Normal. OSSEOUS STRUCTURES: No significant abnormalities. VISUALIZED UPPER ABDOMEN: Normal. OTHER FINDINGS: None. IMPRESSION: No active disease.
--- NOTE | 2017-01-18 13:52 | CARD ---
APPROVED REPORT EKG Measurement Heart [id number] <Conclusion> Sinus tachycardia Otherwise normal ECG
[2017-01-18] MEDS: Insulin Detemir 100 Units/ml Inj SC SCH ×2 (21:30→22:16)
[2017-01-19] MEDS: Lactated Ringer's 1,000 ML IV SCH ×4 (01:35→20:59)
[2017-01-19 06:45] LABS: BASO % 0.3 % (0.0-2.0); EOS # 0.2 K/uL (0.0-0.7); EOS % 1.6 % (0.0-4.0); HEMATOCRIT 34.8 % (35.0-51.0); LYMPH # 1.7 K/uL (1.0-4.3); LYMPH % 15.2 % (20.0-40.0); MEAN CELL VOLUME 80.1 fl (80.0-94.0); MEAN CORPUSCULAR HEMOGLOBIN 25.5 pg (27.0-31.0); MEAN CORPUSCULAR HGB CONC 31.9 g/dL (33.0-37.0); MEAN PLATELET VOLUME 9.4 fl (7.2-11.7); MONO # 0.9 K/uL (0.0-0.8); MONO % 7.8 % (0.0-10.0); NEUT # 8.5 K/uL (1.8-7.0); NEUT % 75.1 % (50.0-75.0); NRBC % 0.1 % (0.0-0.0); RED CELL DISTRIBUTION WIDTH 15.7 % (11.5-14.5); WHITE BLOOD COUNT 11.4 K/uL (4.8-10.8)
[2017-01-19 06:51] LABS: BLOOD UREA NITROGEN 6 mg/dl (9-20); CALCIUM 8.4 mg/dL (8.4-10.2); CARBON DIOXIDE 29 mmol/L (22-30); CHLORIDE 97 mmol/L (98-107); GFR AFRICAN-AMERICAN > 60; GLUCOSE,RANDOM 229 mg/dL (75-110); POTASSIUM 3.8 MMOL/L (3.6-5.0); SODIUM 133 mmol/l (132-148)
--- NOTE | 2017-01-19 08:13 | CP.PCM.PN ---
<Heber Hammond - Last Filed: 01/19/17 12:30> Subjective - Date & Time of Evaluation Date of Evaluation: 01/19/17 Time of Evaluation: 07:15 - Subjective Subjective: Patient seen and examined. He is complaining of abdominal pain, tolerating po intake. No nausea vomiting. Will continue to monitor. Continue with pain control. Patient seen with Dr. Tang and family medicine team. Objective - Vital Signs/Intake and Output Vital Signs (last 24 hours): Temp Pulse Resp BP Pulse Ox 98 F 72 20 126/65 97 01/19/17 04:43 01/19/17 04:43 01/19/17 04:43 01/19/17 04:43 01/19/17 04:43 - Medications Medications: Current Medications Atorvastatin Calcium (Lipitor) 10 mg PO DAILY [facility] Last Admin: 01/18/17 11:55 Dose: 10 mg Dextrose (Dextrose 50% Inj) 0 ml IV STAT PRN; Protocol PRN Reason: Hyglycemia Protocol Dextrose (Glutose 15) 0 gm PO ONCE PRN; Protocol PRN Reason: Hypoglycemia Protocol Enoxaparin Sodium (Lovenox) 40 mg SC DAILY [facility] PRN Reason: Protocol Last Admin: 01/18/17 11:54 Dose: 40 mg Gabapentin (Neurontin) 300 mg PO TID [facility] Last Admin: 01/18/17 16:45 Dose: 300 mg Glucagon (Glucagen Diagnostic Kit) 0 mg IM STAT PRN; Protocol PRN Reason: Hypoglycemia Protocol Hydromorphone HCl (Dilaudid) 4 mg IVP Q6 PRN PRN Reason: Pain, severe (8-10) Last Admin: 01/19/17 05:27 Dose: 4 mg Lactated Ringer's (Lactated Ringer's) 1,000 mls @ 125 mls/hr IV .Q8H [facility] Last Admin: 01/19/17 05:37 Dose: Not Given Insulin Detemir (Levemir) 42 units SC [facility] Last Admin: 01/18/17 22:16 Dose: Not Given Insulin Human Regular (Humulin R) 0 units SC ACHS [facility] PRN Reason: Protocol Last Admin: 01/18/17 22:15 Dose: Not Given Lisinopril (Zestril) 10 mg PO [facility] Last Admin: 01/18/17 21:29 Dose: 10 mg Metoclopramide HCl (Reglan) 10 mg PO TID [facility] Last Admin: 01/18/17 16:45 Dose: 10 mg Metoprolol Succinate (Toprol Xl) 25 mg PO DAILY [facility] Last Admin: 01/18/17 11:55 Dose: 25 mg Ondansetron HCl (Zofran Inj) 4 mg IVP Q6 PRN PRN Reason: Nausea/Vomiting - Labs Labs: 01/19/17 05:15 01/19/17 05:15 - Constitutional Appears: Chronically Ill - Head Exam Head Exam: NORMAL INSPECTION - Respiratory Exam Respiratory Exam: NORMAL BREATHING PATTERN - Cardiovascular Exam Cardiovascular Exam: REGULAR RHYTHM, +S1, +S2 - GI/Abdominal Exam GI & Abdominal Exam: Distended Additional comments: complaining of pain in midepigastric area - Extremities Exam Extremities Exam: absent: Pedal Edema - Neurological Exam Neurological Exam: CN II-XII Intact (sleeping, arousable) - Skin Skin Exam: Dry, Intact Assessment and Plan - Assessment and Plan (Free Text) Assessment: 61 y/o M with PMH including IDDM2, HTN, HLD, Diabetic neuropathy and Recurrent diabetic gastroparesis presented to ED with a 4 hour history of diffuse abdominal pain and recurrent vomiting. Patient was subsequently admitted with intractable abdominal pain secondary to acute diabetic gastroparesis, dehydration and hyperglycemia. Patient reports he is tolerating PO intake, still complaining of abdominal pain. Plan: Intractable abdominal pain -Likely secondary to acute diabetic gastroparesis -Lipase normal -regular diet, 6 small meals -Pain control with dilaudid, decrease dose form 4mg to 2mg. -Zofran 4mg IV Q6H PRN for nausea -Reglan 10mg PO TID Nausea/vomiting -resolved -secondary to hyperglycemia vs gastroparesis -Zofran PRN -Continue IVF IDDM2 with hyperglycemia -Home metformin, actos and glimepiride held -Will continue home levemir of 42 units SC HS -HDSS with meals -Accuchecks ACHS Leukocytosis -Patient has chronic high baseline leukocytosis -improved 11.4 -Patient currently afebrile Hypertension, uncontrolled -Likely exacerbated by acute pain -Will resume home medications (Lisinopril 10mg PO HS, Metoprolol succinate 25mg PO daily) -Continue telemetry monitoring DVT Prophylaxis -Lovenox 40mg SC daily <Riki Tang - Last Filed: 01/21/17 06:46> Objective - Vital Signs/Intake and Output Vital Signs (last 24 hours): Temp Pulse Resp BP Pulse Ox 97.7 F 82 18 147/75 96 01/20/17 08:00 01/20/17 09:05 01/20/17 08:00 01/20/17 09:05 01/20/17 08:00 Intake and Output: 01/20/17 01/21/17 18:59 06:59 Intake Total 860 Balance 860 - Labs Labs: 01/20/17 04:45 01/20/17 04:45 Attending/Attestation - Attestation I have personally seen and examined this patient.: Yes I have fully participated in the care of the patient.: Yes I have reviewed all pertinent clinical information, including history, physical exam and plan: Yes
[2017-01-19] MEDS: Enoxaparin 40 mg Syringe SC SCH (08:42)
[2017-01-19] MEDS: Metoprolol Succinate 25 mg XL Tab PO SCH (08:42)
[2017-01-19] MEDS: Insulin Regular 100 units/ml SC SCH ×3 (14:04→22:00)
[2017-01-19 20:11] VITALS: RESP 18
[2017-01-19] MEDS: Insulin Detemir 100 Units/ml Inj SC SCH (21:48)
[2017-01-20] MEDS: Lactated Ringer's 1,000 ML IV SCH (06:14)
[2017-01-20 06:48] LABS: BASO % 0.4 % (0.0-2.0); EOS # 0.3 K/uL (0.0-0.7); EOS % 3.1 % (0.0-4.0); LYMPH # 2.1 K/uL (1.0-4.3); LYMPH % 21.9 % (20.0-40.0); MEAN CELL VOLUME 79.9 fl (80.0-94.0); MEAN CORPUSCULAR HEMOGLOBIN 25.7 pg (27.0-31.0); MEAN CORPUSCULAR HGB CONC 32.2 g/dL (33.0-37.0); MEAN PLATELET VOLUME 9.4 fl (7.2-11.7); MONO # 1.1 K/uL (0.0-0.8); MONO % 11.6 % (0.0-10.0); RED CELL DISTRIBUTION WIDTH 15.4 % (11.5-14.5); WHITE BLOOD COUNT 9.5 K/uL (4.8-10.8)
[2017-01-20] MEDS: Insulin Regular 100 units/ml SC SCH ×2 (06:52→13:01)
[2017-01-20 07:16] LABS: BLOOD UREA NITROGEN 5 mg/dl (9-20); CALCIUM 8.7 mg/dL (8.4-10.2); CARBON DIOXIDE 33 mmol/L (22-30); CHLORIDE 95 mmol/L (98-107); GFR AFRICAN-AMERICAN > 60; GLUCOSE,RANDOM 153 mg/dL (75-110); POTASSIUM 3.3 MMOL/L (3.6-5.0); SODIUM 135 mmol/l (132-148)
[2017-01-20 08:53] VITALS: BP 147/75; PULSE 82; TEMP 97.7; O2SAT 96
[2017-01-20] MEDS: Enoxaparin 40 mg Syringe SC SCH (09:03)
[2017-01-20] MEDS: Metoprolol Succinate 25 mg XL Tab PO SCH (09:05)
--- NOTE | 2017-01-20 21:45 | CP.PCM.DIS ---
<Heber Hammond - Last Filed: 01/20/17 21:45> Provider - Provider Date of Admission: 01/18/17 03:00 Attending physician: Quincy Mcdonald MD Primary care physician: Quincy Mcdonald MD Time Spent in preparation of Discharge (in minutes): 30 Hospital Course - Lab Results Lab Results: Most Recent Lab Values WBC 9.5 K/uL (4.8-10.8) 01/20/17 04:45 RBC 4.38 Mil/uL (4.40-5.90) L 01/20/17 04:45 Hgb 11.3 g/dL (12.0-18.0) L 01/20/17 04:45 Hct 35.0 % (35.0-51.0) 01/20/17 04:45 MCV 79.9 fl (80.0-94.0) L 01/20/17 04:45 MCH 25.7 pg (27.0-31.0) L 01/20/17 04:45 MCHC 32.2 g/dL (33.0-37.0) L 01/20/17 04:45 RDW 15.4 % (11.5-14.5) H 01/20/17 04:45 Plt Count 246 K/uL (130-400) 01/20/17 04:45 MPV 9.4 fl (7.2-11.7) 01/20/17 04:45 Neut % (Auto) 63.0 % (50.0-75.0) 01/20/17 04:45 Lymph % (Auto) 21.9 % (20.0-40.0) 01/20/17 04:45 [place] % (Auto) 11.6 % (0.0-10.0) H 01/20/17 04:45 Eos % (Auto) 3.1 % (0.0-4.0) 01/20/17 04:45 Baso % (Auto) 0.4 % (0.0-2.0) 01/20/17 04:45 Neut # 6.0 K/uL (1.8-7.0) 01/20/17 04:45 Lymph # 2.1 K/uL (1.0-4.3) 01/20/17 04:45 [place] # 1.1 K/uL (0.0-0.8) H 01/20/17 04:45 Eos # 0.3 K/uL (0.0-0.7) 01/20/17 04:45 Baso # 0.0 K/uL (0.0-0.2) 01/20/17 04:45 Neutrophils % (Manual) 95 % (42-75) H 01/18/17 01:45 Lymphocytes % (Manual) 4 % (20-50) L 01/18/17 01:45 Monocytes % (Manual) 1 % (0-10) 01/18/17 01:45 Platelet Estimate Normal (NORMAL) 01/18/17 01:45 Large Platelets Present 01/18/17 01:45 Anisocytosis (manual) Slight 01/18/17 01:45 Microcytosis (manual) Slight 01/18/17 01:45 Target Cells Slight 01/18/17 01:45 pO2 44 mm/Hg (30-55) 01/18/17 02:00 VBG pH 7.40 (7.32-7.43) 01/18/17 02:00 VBG pCO2 44 mmHg (40-60) 01/18/17 02:00 VBG HCO3 26.0 mmol/L 01/18/17 02:00 VBG Total CO2 28.7 mmol/L (22-28) H 01/18/17 02:00 VBG O2 Sat (Calc) 82.0 % (40-65) H 01/18/17 02:00 VBG Base Excess 2.0 mmol/L (0.0-2.0) 01/18/17 02:00 VBG Potassium 4.7 mmol/L (3.6-5.2) 01/18/17 02:00 Sodium 135.0 mmol/L (132-148) 01/18/17 02:00 Chloride 96.0 mmol/L (98-107) L 01/18/17 02:00 Glucose 509 mg/dL (75-110) H* 01/18/17 02:00 Lactate 2.2 mmol/L (0.7-2.1) H 01/18/17 02:00 FiO2 21.0 % 01/18/17 02:00 Crit Value Called To Aixa pond md 01/18/17 02:00 Crit Value Called By Melchor 01/18/17 02:00 Crit Value Read Back Y 01/18/17 02:00 Blood Gas Notified Time 210 01/18/17 02:00 Sodium 135 mmol/l (132-148) 01/20/17 04:45 Potassium 3.3 MMOL/L (3.6-5.0) L 01/20/17 04:45 Chloride 95 mmol/L (98-107) L 01/20/17 04:45 Carbon Dioxide 33 mmol/L (22-30) H 01/20/17 04:45 Anion Gap 10 (10-20) 01/20/17 04:45 BUN 5 mg/dl (9-20) L 01/20/17 04:45 Creatinine 0.6 mg/dL (0.8-1.5) L 01/20/17 04:45 Est GFR ( Amer) > 60 01/20/17 04:45 Est GFR (Non-Af Amer) > 60 01/20/17 04:45 POC Glucose (mg/dL) 263 mg/dL (65-110) H 01/20/17 11:56 Random Glucose 153 mg/dL (75-110) H 01/20/17 04:45 Calcium 8.7 mg/dL (8.4-10.2) 01/20/17 04:45 Total Bilirubin 0.6 mg/dl (0.2-1.3) 01/18/17 01:45 AST 16 U/L (17-59) L 01/18/17 01:45 ALT 31 U/L (21-72) 01/18/17 01:45 Alkaline Phosphatase 85 U/L (38-126) 01/18/17 01:45 Lactate Dehydrogenase 294 U/L (313-618) L 01/18/17 01:45 Total Protein 8.0 G/DL (6.3-8.2) 01/18/17 01:45 Albumin 4.5 g/dL (3.5-5.0) 01/18/17 01:45 Globulin 3.5 gm/dL (2.2-3.9) 01/18/17 01:45 Albumin/Globulin Ratio 1.3 (1.0-2.1) 01/18/17 01:45 Lipase 45 U/L (23-300) 01/18/17 01:45 Venous Blood Potassium 4.7 mmol/L (3.6-5.2) 01/18/17 02:00 Urine Color Yellow (YELLOW) 01/18/17 01:45 Urine Clarity Clear (Clear) 01/18/17 01:45 Urine pH 7.0 (5.0-8.0) 01/18/17 01:45 Ur Specific [place] 1.028 (1.003-1.030) 01/18/17 01:45 Urine Protein 30 mg/dL (NEGATIVE) 01/18/17 01:45 Urine Glucose (UA) >=500 mg/dL (Normal) 01/18/17 01:45 Urine Ketones 20 mg/dL (NEGATIVE) 01/18/17 01:45 Urine Blood Negative (NEGATIVE) 01/18/17 01:45 Urine Nitrate Negative (NEGATIVE) 01/18/17 01:45 Urine Bilirubin Negative (NEGATIVE) 01/18/17 01:45 Urine Urobilinogen 0.2-1.0 mg/dL (0.2-1.0) 01/18/17 01:45 Ur Leukocyte Esterase Neg Jennifer/uL (Negative) 01/18/17 01:45 Urine RBC (Auto) 2 /hpf (0-3) 01/18/17 01:45 Urine Microscopic WBC < 1 /hpf (0-5) 01/18/17 01:45 Ur Squamous Epith Cells < 1 /hpf (0-5) 01/18/17 01:45 Urine Opiates Screen Negative (NEGATIVE) 01/18/17 01:45 Urine Methadone Screen Negative (NEGATIVE) 01/18/17 01:45 Ur Barbiturates Screen Negative (NEGATIVE) 01/18/17 01:45 Ur Phencyclidine Scrn Negative (NEGATIVE) 01/18/17 01:45 Ur Amphetamines Screen Negative (NEGATIVE) 01/18/17 01:45 U Benzodiazepines Scrn Negative (NEGATIVE) 01/18/17 01:45 U Oth Cocaine Metabols Negative (NEGATIVE) 01/18/17 01:45 U Cannabinoids Screen Negative (NEGATIVE) 01/18/17 01:45 - Hospital Course Hospital Course: 61 y/o M with PMH including IDDM2, HTN, HLD, Diabetic neuropathy and Recurrent diabetic gastroparesis presented to ED with a 4 hour history of diffuse abdominal pain and recurrent vomiting admitted for hyperglycemia and intractable abdominal pain secondar to gastroparesis. Hyperglycemia was treated , home medications were resumed and started patient on small frequent meals. Pain control with dilaudid. Patient able to tolerate regular diet today, pain improved. PICC line removed from left inguinal. Educated on eating small meals. Patient will follow up with Dr. Tang/ Dr. Mcdonald tomorrow. Patient to resume home medications. No discharge medications. Discharge Exam - Head Exam Head Exam: NORMAL INSPECTION - ENT Exam ENT Exam: Mucous Membranes Moist - Respiratory Exam Respiratory Exam: NORMAL BREATHING PATTERN, UNREMARKABLE - Cardiovascular Exam Cardiovascular Exam: REGULAR RHYTHM, +S1, +S2 - GI/Abdominal Exam GI & Abdominal Exam: absent: Soft Additional comments: mildy distended , no tenderness midepigastrium - Rectal Exam Rectal Exam: Deferred - Extremities Exam Additional comments: left upper extremity: catheter in place, dressing clean dry intact. no pedal edema or tenderness. - Neurological Exam Neurological exam: CN II-XII Intact, Oriented x3 Additional comments: awake - Psychiatric Exam Psychiatric exam: Depressed - Skin Skin Exam: Dry, Intact Discharge Plan - Follow Up Plan Condition: STABLE Disposition: HOME/ ROUTINE Instructions: Diabetic Gastroparesis (DC), Dehydration (DC) Additional Instructions: order for discharge written at 0744. Pt not cleared until later on. TLC d/c'd by resident. pt discharged at 1230. Referrals: Quincy Mcdonald MD [Primary Care Provider] - <Riki Tang - Last Filed: 01/21/17 06:49> Provider - Provider Date of Admission: 01/18/17 03:00 Attending physician: Quincy Mcdonald MD Primary care physician: Quincy Mcdonald MD Hospital Course - Lab Results Lab Results: Most Recent Lab Values WBC 9.5 K/uL (4.8-10.8) 01/20/17 04:45 RBC 4.38 Mil/uL (4.40-5.90) L 01/20/17 04:45 Hgb 11.3 g/dL (12.0-18.0) L 01/20/17 04:45 Hct 35.0 % (35.0-51.0) 01/20/17 04:45 MCV 79.9 fl (80.0-94.0) L 01/20/17 04:45 MCH 25.7 pg (27.0-31.0) L 01/20/17 04:45 MCHC 32.2 g/dL (33.0-37.0) L 01/20/17 04:45 RDW 15.4 % (11.5-14.5) H 01/20/17 04:45 Plt Count 246 K/uL (130-400) 01/20/17 04:45 MPV 9.4 fl (7.2-11.7) 01/20/17 04:45 Neut % (Auto) 63.0 % (50.0-75.0) 01/20/17 04:45 Lymph % (Auto) 21.9 % (20.0-40.0) 01/20/17 04:45 [place] % (Auto) 11.6 % (0.0-10.0) H 01/20/17 04:45 Eos % (Auto) 3.1 % (0.0-4.0) 01/20/17 04:45 Baso % (Auto) 0.4 % (0.0-2.0) 01/20/17 04:45 Neut # 6.0 K/uL (1.8-7.0) 01/20/17 04:45 Lymph # 2.1 K/uL (1.0-4.3) 01/20/17 04:45 [place] # 1.1 K/uL (0.0-0.8) H 01/20/17 04:45 Eos # 0.3 K/uL (0.0-0.7) 01/20/17 04:45 Baso # 0.0 K/uL (0.0-0.2) 01/20/17 04:45 Neutrophils % (Manual) 95 % (42-75) H 01/18/17 01:45 Lymphocytes % (Manual) 4 % (20-50) L 01/18/17 01:45 Monocytes % (Manual) 1 % (0-10) 01/18/17 01:45 Platelet Estimate Normal (NORMAL) 01/18/17 01:45 Large Platelets Present 01/18/17 01:45 Anisocytosis (manual) Slight 01/18/17 01:45 Microcytosis (manual) Slight 01/18/17 01:45 Target Cells Slight 01/18/17 01:45 pO2 44 mm/Hg (30-55) 01/18/17 02:00 VBG pH 7.40 (7.32-7.43) 01/18/17 02:00 VBG pCO2 44 mmHg (40-60) 01/18/17 02:00 VBG HCO3 26.0 mmol/L 01/18/17 02:00 VBG Total CO2 28.7 mmol/L (22-28) H 01/18/17 02:00 VBG O2 Sat (Calc) 82.0 % (40-65) H 01/18/17 02:00 VBG Base Excess 2.0 mmol/L (0.0-2.0) 01/18/17 02:00 VBG Potassium 4.7 mmol/L (3.6-5.2) 01/18/17 02:00 Sodium 135.0 mmol/L (132-148) 01/18/17 02:00 Chloride 96.0 mmol/L (98-107) L 01/18/17 02:00 Glucose 509 mg/dL (75-110) H* 01/18/17 02:00 Lactate 2.2 mmol/L (0.7-2.1) H 01/18/17 02:00 FiO2 21.0 % 01/18/17 02:00 Crit Value Called To Aixa pond md 01/18/17 02:00 Crit Value Called By Melchor 01/18/17 02:00 Crit Value Read Back Y 01/18/17 02:00 Blood Gas Notified Time 210 01/18/17 02:00 Sodium 135 mmol/l (132-148) 01/20/17 04:45 Potassium 3.3 MMOL/L (3.6-5.0) L 01/20/17 04:45 Chloride 95 mmol/L (98-107) L 01/20/17 04:45 Carbon Dioxide 33 mmol/L (22-30) H 01/20/17 04:45 Anion Gap 10 (10-20) 01/20/17 04:45 BUN 5 mg/dl (9-20) L 01/20/17 04:45 Creatinine 0.6 mg/dL (0.8-1.5) L 01/20/17 04:45 Est GFR ( Amer) > 60 01/20/17 04:45 Est GFR (Non-Af Amer) > 60 01/20/17 04:45 POC Glucose (mg/dL) 263 mg/dL (65-110) H 01/20/17 11:56 Random Glucose 153 mg/dL (75-110) H 01/20/17 04:45 Calcium 8.7 mg/dL (8.4-10.2) 01/20/17 04:45 Total Bilirubin 0.6 mg/dl (0.2-1.3) 01/18/17 01:45 AST 16 U/L (17-59) L 01/18/17 01:45 ALT 31 U/L (21-72) 01/18/17 01:45 Alkaline Phosphatase 85 U/L (38-126) 01/18/17 01:45 Lactate Dehydrogenase 294 U/L (313-618) L 01/18/17 01:45 Total Protein 8.0 G/DL (6.3-8.2) 01/18/17 01:45 Albumin 4.5 g/dL (3.5-5.0) 01/18/17 01:45 Globulin 3.5 gm/dL (2.2-3.9) 01/18/17 01:45 Albumin/Globulin Ratio 1.3 (1.0-2.1) 01/18/17 01:45 Lipase 45 U/L (23-300) 01/18/17 01:45 Venous Blood Potassium 4.7 mmol/L (3.6-5.2) 01/18/17 02:00 Urine Color Yellow (YELLOW) 01/18/17 01:45 Urine Clarity Clear (Clear) 01/18/17 01:45 Urine pH 7.0 (5.0-8.0) 01/18/17 01:45 Ur Specific [place] 1.028 (1.003-1.030) 01/18/17 01:45 Urine Protein 30 mg/dL (NEGATIVE) 01/18/17 01:45 Urine Glucose (UA) >=500 mg/dL (Normal) 01/18/17 01:45 Urine Ketones 20 mg/dL (NEGATIVE) 01/18/17 01:45 Urine Blood Negative (NEGATIVE) 01/18/17 01:45 Urine Nitrate Negative (NEGATIVE) 01/18/17 01:45 Urine Bilirubin Negative (NEGATIVE) 01/18/17 01:45 Urine Urobilinogen 0.2-1.0 mg/dL (0.2-1.0) 01/18/17 01:45 Ur Leukocyte Esterase Neg Jennifer/uL (Negative) 01/18/17 01:45 Urine RBC (Auto) 2 /hpf (0-3) 01/18/17 01:45 Urine Microscopic WBC < 1 /hpf (0-5) 01/18/17 01:45 Ur Squamous Epith Cells < 1 /hpf (0-5) 01/18/17 01:45 Urine Opiates Screen Negative (NEGATIVE) 01/18/17 01:45 Urine Methadone Screen Negative (NEGATIVE) 01/18/17 01:45 Ur Barbiturates Screen Negative (NEGATIVE) 01/18/17 01:45 Ur Phencyclidine Scrn Negative (NEGATIVE) 01/18/17 01:45 Ur Amphetamines Screen Negative (NEGATIVE) 01/18/17 01:45 U Benzodiazepines Scrn Negative (NEGATIVE) 01/18/17 01:45 U Oth Cocaine Metabols Negative (NEGATIVE) 01/18/17 01:45 U Cannabinoids Screen Negative (NEGATIVE) 01/18/17 01:45 Attending/Attestation - Attestation I have personally seen and examined this patient.: Yes I have fully participated in the care of the patient.: Yes I have reviewed all pertinent clinical information, including history, physical exam and plan: Yes
== END 2017-01-20 12:46 | disposition home or self-care (01) ==
LOC: H.ER 23:31 → INTOOBSV 01-18 03:00 → H.ERHOLD 01-18 03:00 → H.TEL 01-18 09:09
PROVIDERS: ADMIT Family Medicine; ATTEND Family Medicine
DX: E11.65 Type 2 diabetes mellitus with hyperglycemia (principal); E11.43 Type 2 diabetes mellitus with diabetic autonomic (poly)neuropathy; E78.5 Hyperlipidemia, unspecified; I10 Essential (primary) hypertension; Z79.4 Long term (current) use of insulin; E86.0 Dehydration; K31.84 Gastroparesis

== ENCOUNTER 2017-01-28 12:28 | Inpatient (IN) | payer OTHER ==
[2017-01-28 12:28] VITALS: BMI 34.0
[2017-01-28] MEDS ORDERED: Sodium Chloride 0.9% 1,000 ML IV SCH (13:30)
--- NOTE | 2017-01-28 13:47 | ED PDOC ---
HPI: Abdomen Time Seen by Provider: 01/28/17 12:48 Chief Complaint (Nursing): Abdominal Pain Additional Complaint(s): Patient is a 61 y/o M with hx of HTN, high cholesterol, kidney stones, pancreatitis, diabetes and gastroparesis presenting with vomiting. Patient reports generalized abdominal pain and inability to tolerate po since last night. He reports multiple episodes of NB/NB vomitus. Reports normal bowel movements. Denies fever, chest pain, shortness of breath, dysuria, or penile discharge. Patient states that he believes his symptoms are related to his pancreatitis and gastroparesis. Patient has had multiple admissions for same. PMD: Dr. Smith Past Medical History Vital Signs: Last Vital Signs Temp 98.6 F 01/28/17 16:08 Pulse 120 H 01/28/17 17:36 Resp 18 01/28/17 17:36 BP 144/78 01/28/17 17:36 Pulse Ox 97 01/28/17 17:36 - Medical History PMH: Diabetes, HTN, Hypercholesterolemia, Kidney Stones, Pancreatitis Denies: HIV, Chronic Kidney Disease, Sexually Transmitted Disease - Surgical History Surgical History: Cholecystectomy - Family History Family History: States: [place] (Father of heart attack) - Home Medications Home Medications: Ambulatory Orders Medication Instructions Recorded Gabapentin [Neurontin] 300 mg PO TID 08/14/16 Pioglitazone [Actos] 30 mg PO DAILY 08/14/16 Insulin Detemir [Levemir] 42 units SC HS 10/13/16 Insulin Lispro [Humalog (Insulin 42 units SC ACTID 12/28/16 Lispro)] Atorvastatin [Lipitor] 10 mg PO DAILY 01/28/17 Famotidine [Pepcid] 20 mg PO BID 01/28/17 Furosemide [Lasix] 40 mg PO DAILY 01/28/17 Glimepiride [amaRYL] 4 mg PO BID 01/28/17 Lisinopril [Zestril] 10 mg PO HS 01/28/17 MetFORMIN [glucoPHAGE] 1,000 mg PO BID 01/28/17 Metoclopramide [Reglan] 10 mg PO Q8H 01/28/17 Metoprolol Tartrate [Lopressor] 25 mg PO BID 01/28/17 - Allergies Allergies/Adverse Reactions: Allergies Allergy/AdvReac Type Severity Reaction Status Date / Time iodine Allergy URTICARIA Verified 01/28/17 12:31 Review of Systems Constitutional: Negative for: Fever, Chills Cardiovascular: Negative for: Chest Pain, Palpitations Respiratory: Negative for: Cough, Shortness of Breath, SOB with Exertion Gastrointestinal: Positive for: Nausea, Vomiting, Abdominal Pain. Negative for : Diarrhea, Constipation Genitourinary Male: Negative for: Dysuria, Penile Discharge, Scrotal Pain, Penile Pain Neurological: Negative for: Weakness, Numbness Physical Exam - Physical Exam Appears: Positive for: Well, Non-toxic Head Exam: Positive for: ATRAUMATIC, NORMAL INSPECTION, NORMOCEPHALIC Eye Exam: Positive for: Normal appearance Cardiovascular/Chest: Positive for: Regular Rate, Rhythm Respiratory: Positive for: Normal Breath Sounds. Negative for: Rales, Rhonchi, Stridor, Wheezing Gastrointestinal/Abdominal: Positive for: Soft, Tenderness (generalized ) Back: Positive for: Normal Inspection. Negative for: L CVA Tenderness, R CVA Tenderness Extremity: Positive for: Normal ROM Neurologic/Psych: Positive for: Alert, Oriented - Laboratory Results Result Diagrams: 01/28/17 15:20 01/28/17 15:20 - ECG O2 Sat by Pulse Oximetry: 96 Medical Decision Making Medical Decision Making: Patient is refusing blood draws and is refusing EJ placement or attempt. He is requesting picc line placement. Will get picc line placement, give IVF, pain medication, anti-emetic, get labs and reeval 4:17PM WBC elevated (but patient has a hx of). HR could be elevated secondary to pain or the fact that patient has vomiting BP medication. Additional pain medication ordered. Lactate is elevated. This could be reactionary and due to hyperglycemia and dehydration, but broad spectrum antibitoics and 30cc/kg fluid bolus written under sepsis guidelines. Cxray ordered. Blood and urine cultures ordered. 6:01PM IV BP medication as held as BP improved. Patient reporting improvement of abdominal pain. PH WNL and patient is not currently in DKA. Will continue to treat hyperglycemia with IVF and insulin. Spoke to Dr. Smith and he reports that patient has hx of elevated wbc but agrees with tele for intractable pain and vomiting, with elevated bp and hyperglycemia. BP improved to 144/78. HR still mildly elevated to 120. IVF infusing. Disposition - Clinical Impression Clinical Impression: Hypertension, Dehydration, Hyperglycemia, Abdominal discomfort, Gastroparesis, Leukocytosis, Nausea & vomiting - Disposition Disposition Time: 18:04 Condition: FAIR
[2017-01-28 14:01] LABS: RBC URINE 9 /hpf (0-3); URINE BILIRUBIN NEGATIVE (NEGATIVE); URINE BLOOD SMALL (NEGATIVE); URINE COLOR STRAW (YELLOW); URINE GLUCOSE (UA) >=500 mg/dL (Normal); URINE KETONE 80 mg/dL (NEGATIVE); URINE LEUKOCYTE ESTERASE NEG Leu/uL (Negative); URINE PROTEIN 100 mg/dL (NEGATIVE); URINE UROBILINOGEN 0.2-1.0 mg/dL (0.2-1.0); WBC URINE 1 /hpf (0-5)
[2017-01-28] MEDS ORDERED: Sodium Chloride 0.9% 500 ML IV ONE (14:20)
--- NOTE | 2017-01-28 14:49 | PCM.SURG1 ---
Surgeon's Initial Post Op Note - Surgeon's Notes Surgeon: Yolanda Director Of Design: None Type of Anesthesia: Local Pre-Operative Diagnosis: Poor IV access Operative Findings: Patent right brachial vein. Post-Operative Diagnosis: Poor IV access Operation Performed: Right arm 4F SL 35cm brachial vein PICC with tip at the RA/ SVC junction. Specimen/Specimens Removed: None Estimated Blood Loss: EBL {In ML}: 1 Date of Surgery/Procedure: 01/28/17 Time of Surgery/Procedure: 14:40
[2017-01-28 15:32] LABS: BASO # 0.1 K/uL (0.0-0.2); BASO % 0.5 % (0.0-2.0); LYMPH # 0.8 K/uL (1.0-4.3); LYMPH % 4.2 % (20.0-40.0); MEAN CELL VOLUME 79.2 fl (80.0-94.0); MEAN CORPUSCULAR HEMOGLOBIN 25.4 pg (27.0-31.0); MEAN CORPUSCULAR HGB CONC 32.1 g/dL (33.0-37.0); MEAN PLATELET VOLUME 9.2 fl (7.2-11.7); MONO # 0.4 K/uL (0.0-0.8); MONO % 1.9 % (0.0-10.0); NEUT # 18.9 K/uL (1.8-7.0); NEUT % 93.4 % (50.0-75.0); PLATELET COUNT 277 K/uL (130-400); RED CELL DISTRIBUTION WIDTH 15.6 % (11.5-14.5); WHITE BLOOD COUNT 20.2 K/uL (4.8-10.8)
[2017-01-28 15:34] LABS: ALB/GLOB RATIO 1.3 (1.0-2.1); ALKALINE PHOSPHATASE 79 U/L (38-126); ALT/SGPT 32 U/L (21-72); AST/SGOT 19 U/L (17-59); BILIRUBIN,TOTAL 0.6 mg/dl (0.2-1.3); BLOOD UREA NITROGEN 15 mg/dl (9-20); CARBON DIOXIDE 24 mmol/L (22-30); CHLORIDE 94 mmol/L (98-107); GFR AFRICAN-AMERICAN > 60; LIPASE 706 U/L (23-300); MAGNESIUM 1.6 MG/DL (1.6-2.3); PHOSPHOROUS 4.3 mg/dl (2.5-4.5); POTASSIUM 4.6 MMOL/L (3.6-5.0); SODIUM 138 mmol/l (132-148); TOTAL PROTEIN 8.7 G/DL (6.3-8.2)
[2017-01-28 15:38] LABS: GLUCOSE,RANDOM 552 mg/dL (75-110)
[2017-01-28 15:53] LABS: VENOUS BLOOD GAS BASE EXCESS 2.5 mmol/L (0.0-2.0); VENOUS BLOOD GAS PCO2 45 mmHg (40-60)
[2017-01-28 16:02] LABS: EOSINOPHIL 1 % (0-7); NEUTROPHIL 92 % (42-75); REACTIVE LYMPHOCYTES 1 % (0-0); TOTAL CELLS COUNTED 100
[2017-01-28] MEDS ORDERED: Piperacillin/Tazobact 3.375 GM in Sodium Chloride 0.9% 100 ML IVPB STA (16:08)
[2017-01-28] MEDS ORDERED: Insulin Regular 100 units/ml IV STA (16:39)
[2017-01-28] MEDS ORDERED: Metoprolol 1 mg/ml Inj IVP STA (17:11)
--- NOTE | 2017-01-28 17:23 | RAD ---
HISTORY: elevated wbc COMPARISON: 01/18/2017 FINDINGS: LUNGS: No active pulmonary disease. PLEURA: Limited for evaluation of pleural effusion due to failure to include extreme left costophrenic angle on this film. No evidence of pleural effusion or pneumothorax. CARDIOVASCULAR: Normal heart size. Right PICC catheter terminates in the region of the superior vena cava. OSSEOUS STRUCTURES: No significant abnormalities. VISUALIZED UPPER ABDOMEN: Normal. OTHER FINDINGS: None. IMPRESSION: No infiltrate. No evidence of pleural effusion. New right PICC catheter terminates in the region of superior vena cava.
[2017-01-28] MEDS ORDERED: HYDROmorphone 0.5 mg/0.5 ml ISec IVP PRN (22:31)
[2017-01-28] MEDS: Insulin Lispro (humaLOG) 100 Units/ml Inj SC SCH (23:11)
[2017-01-28] MEDS: Insulin Detemir 100 Units/ml Inj SC SCH (23:12)
[2017-01-28] MEDS: Sodium Chloride 0.9% 1,000 ML IV SCH (23:13)
[2017-01-29 00:03] LABS: BLOOD UREA NITROGEN 14 mg/dl (9-20); CALCIUM 8.8 mg/dL (8.4-10.2); CARBON DIOXIDE 27 mmol/L (22-30); CHLORIDE 95 mmol/L (98-107); GFR AFRICAN-AMERICAN > 60; GLUCOSE,RANDOM 327 mg/dL (75-110); POTASSIUM 3.8 MMOL/L (3.6-5.0); SODIUM 135 mmol/l (132-148)
[2017-01-29] MEDS: Piperacillin/Tazobact 3.375 GM in Sodium Chloride 0.9% 100 ML IVPB SCH ×4 (04:35→21:39)
[2017-01-29] MEDS: Sodium Chloride 0.9% 1,000 ML IV SCH ×3 (07:01→17:45)
[2017-01-29 07:08] LABS: BASO % 0.3 % (0.0-2.0); EOS # 0.1 K/uL (0.0-0.7); EOS % 0.5 % (0.0-4.0); HEMATOCRIT 35.8 % (35.0-51.0); LYMPH % 10.9 % (20.0-40.0); MEAN CELL VOLUME 80.2 fl (80.0-94.0); MEAN CORPUSCULAR HEMOGLOBIN 25.4 pg (27.0-31.0); MEAN CORPUSCULAR HGB CONC 31.7 g/dL (33.0-37.0); MEAN PLATELET VOLUME 9.4 fl (7.2-11.7); MONO # 1.6 K/uL (0.0-0.8); MONO % 8.7 % (0.0-10.0); NEUT # 14.6 K/uL (1.8-7.0); NEUT % 79.6 % (50.0-75.0); RED CELL DISTRIBUTION WIDTH 15.5 % (11.5-14.5); WHITE BLOOD COUNT 18.3 K/uL (4.8-10.8)
[2017-01-29 07:31] LABS: BLOOD UREA NITROGEN 13 mg/dl (9-20); CALCIUM 8.5 mg/dL (8.4-10.2); CARBON DIOXIDE 30 mmol/L (22-30); CHLORIDE 97 mmol/L (98-107); GFR AFRICAN-AMERICAN > 60; GLUCOSE,RANDOM 221 mg/dL (75-110); POTASSIUM 3.6 MMOL/L (3.6-5.0); SODIUM 136 mmol/l (132-148)
--- NOTE | 2017-01-29 08:40 | CP.PCM.HP ---
<Hammond,Yonyursula - Last Filed: 01/29/17 20:46> History of Present Illness - History of Present Illness History of Present Illness: 61 y/o M with PMH including IDDM2, HTN, HLD, Diabetic neuropathy and Recurrent diabetic gastroparesis who presented to ED with generalized abdominal pain and PO intolerance last night. He endorses multiple episodes nonbilious nonbloody vomiting. Denies fever, chest pain, shortness of breath, change in bowel habits. Patient was recently admitted on 01/18/17 with similar complaints. PMH: Uncontrolled DM w/Gastroparesis, HTN, HLD, Diabetic neuropathy Allergies: IV contrast (hives) Meds: reviewed SociaL : hx substance abuse, former smoker ED course: VS: T:98.8, BP:135/79, HR 112, RR: 16, 95%on RA CBC: leukocytosis (20.2) CMP: hyperglycemia:416 Lactate: 3.8 Lipase: 706 blood and urine cultures due to elevated BP given: Lopressor 5mg and Norvasc 10mg Given Insulin 6 units PICC line placed Present on Admission - Present on Admission Any Indicators Present on Admission: No Past Patient History - Infectious Disease Hx of Infectious Diseases: None - Tetanus Immunizations Tetanus Immunization: Unknown - Past Medical History & Family History Past Medical History?: Yes - Past Social History Smoking Status: Former Smoker - CARDIAC Hx Cardiac Disorders: Yes Hx Hypertension: Yes - PULMONARY Hx Respiratory Disorders: No - NEUROLOGICAL Hx Neurological Disorder: No - HEENT Hx HEENT Problems: No - RENAL Hx Chronic Kidney Disease: No - ENDOCRINE/METABOLIC Hx Endocrine Disorders: Yes (DM) Hx Diabetes Mellitus Type 2: Yes Other/Comment: diabetic neuropathy - HEMATOLOGICAL/ONCOLOGICAL Hx Blood Disorders: Yes Hx Cirrhosis: Yes Hx Hepatitis C: Yes Hx Human Immunodeficiency Virus (HIV): No - INTEGUMENTARY Hx Dermatological Problems: No - MUSCULOSKELETAL/RHEUMATOLOGICAL Hx Falls: No - GASTROINTESTINAL Hx Gastrointestinal Disorders: Yes Hx Pancreatitis: Yes - GENITOURINARY/GYNECOLOGICAL Hx Genitourinary Disorders: No Hx Sexually Transmitted Disorders: No - PSYCHIATRIC Hx Psychophysiologic Disorder: Yes Hx Substance Use: Yes - SURGICAL HISTORY Hx Surgeries: Yes Hx Cholecystectomy: Yes - ANESTHESIA Hx Anesthesia: Yes Hx Anesthesia Reactions: No Hx Malignant Hyperthermia: No Meds Allergies/Adverse Reactions: Allergies Allergy/AdvReac Type Severity Reaction Status Date / Time iodine Allergy URTICARIA Verified 01/28/17 12:31 Physical Exam - Constitutional Appears: No Acute Distress (uncomfortable) - Head Exam Head Exam: NORMAL INSPECTION, NORMOCEPHALIC - Respiratory Exam Respiratory Exam: Clear to Auscultation Bilateral, NORMAL BREATHING PATTERN - Cardiovascular Exam Cardiovascular Exam: REGULAR RHYTHM. absent: Bradycardia, Tachycardia, Rubs - GI/Abdominal Exam GI & Abdominal Exam: Hypoactive Bowel Sounds, Tenderness (generalized). absent : Guarding - Rectal Exam Rectal Exam: Deferred - Extremities Exam Extremities exam: Negative for: pedal edema - Neurological Exam Neurological exam: CN II-XII Intact, Oriented x3 - Skin Skin Exam: Dry, Intact Results - Vital Signs Recent Vital Signs: Last Vital Signs Temp 98.1 F 01/29/17 08:01 Pulse 86 01/29/17 08:01 Resp 18 01/29/17 08:01 BP 148/75 01/29/17 08:01 Pulse Ox 99 01/29/17 08:01 - Labs Result Diagrams: 01/29/17 05:45 01/29/17 05:45 Labs: Laboratory Results - last 24 hr 01/28/17 01/28/17 01/28/17 19:42 22:37 23:04 WBC RBC Hgb Hct MCV MCH MCHC RDW Plt Count MPV Neut % (Auto) Lymph % (Auto) [place] % (Auto) Eos % (Auto) Baso % (Auto) Neut # Lymph # [place] # Eos # Baso # Sodium 135 Potassium 3.8 Chloride 95 L Carbon Dioxide 27 Anion Gap 17 BUN 14 Creatinine 0.7 L Est GFR ( Amer) > 60 Est GFR (Non-Af Amer) > 60 POC Glucose (mg/dL) 367 H 325 H Random Glucose 327 H Calcium 8.8 01/29/17 01/29/17 01/29/17 04:22 05:17 05:45 WBC 18.3 H RBC 4.46 Hgb 11.3 L D Hct 35.8 MCV 80.2 MCH 25.4 L MCHC 31.7 L RDW 15.5 H Plt Count 244 MPV 9.4 Neut % (Auto) 79.6 H Lymph % (Auto) 10.9 L [place] % (Auto) 8.7 Eos % (Auto) 0.5 Baso % (Auto) 0.3 Neut # 14.6 H Lymph # 2.0 [place] # 1.6 H Eos # 0.1 Baso # 0.0 Sodium Potassium Chloride Carbon Dioxide Anion Gap BUN Creatinine Est GFR ( Amer) Est GFR (Non-Af Amer) POC Glucose (mg/dL) 251 H 244 H Random Glucose Calcium 01/29/17 05:45 WBC RBC Hgb Hct MCV MCH MCHC RDW Plt Count MPV Neut % (Auto) Lymph % (Auto) [place] % (Auto) Eos % (Auto) Baso % (Auto) Neut # Lymph # [place] # Eos # Baso # Sodium 136 Potassium 3.6 Chloride 97 L Carbon Dioxide 30 Anion Gap 13 BUN 13 Creatinine 0.7 L Est GFR ( Amer) > 60 Est GFR (Non-Af Amer) > 60 POC Glucose (mg/dL) Random Glucose 221 H Calcium 8.5 Assessment & Plan (1) Intractable abdominal pain Status: Acute (2) Gastroparesis diabeticorum Status: Chronic (3) Leukocytosis Status: Chronic (4) Diabetes mellitus with hyperglycemia, with long-term current use of insulin Status: Chronic (5) Hypertension Status: Chronic (6) Hyperlipidemia Status: Chronic (7) DVT prophylaxis Status: Acute - Assessment and Plan (Free Text) Assessment: 61 year old male admitted for intractable pain, leukocytosis, hyperglycemia and po intolerance secondary to gastroparesis. Leukocytosis is chronic, however infectious etiology must be ruled out. Patient started on IV zosyn empirically, pending cultures preliminary reports have been negative. Tolerating PO liquids. Advance as tolerated. . Intractable abdominal pain Status: Acute -likely secondary to gastroparesis diabeticorum -dilaudid q4 prn, decrease dose as diet is advanced. -patient is tolerating po liquids. consider advance in AM. .Gastroparesis diabeticorum Status: Chronic -chronic hx of gastroparesis with intractable pain -Pt to be enrolled in program for possible gastric stimulator placement. Dr. Smith is actively trying to get patient approved. Will be discussed with pt. -Pt of Dr. Chacon (GI) -reglan is prn, consider resuming home regimen in AM given pt is tolerating diet. -home regimen is 10mg TID . Diabetes mellitus with hyperglycemia, with long-term current use of insulin Status: Chronic -resume home medications -accuchecks, insulin sliding scale -levemir 42 units hs -glucotrol xl 10mg PO BID -metformin 1000mg PO BID -Actos 30mg PO daily -gabapentin 300mg TID resumed for diabetic neuropathy . HTN Status:chronic resume home medications -zestril 10mg PO HS -Lopressor 25mg PO BID .HLD Status:chronic -lipitor 10mg .DVT prophylaxis Status: Acute -lovenox 40 mg sc <Quincy Smith A - Last Filed: 02/01/17 07:03> Results - Vital Signs Recent Vital Signs: Last Vital Signs Temp 98.2 F 01/31/17 15:30 Pulse 78 01/31/17 16:08 Resp 20 01/31/17 15:30 BP 150/76 01/31/17 16:08 Pulse Ox 97 01/31/17 15:30 - Labs Result Diagrams: 01/30/17 05:30 01/30/17 05:30 Labs: Laboratory Results - last 24 hr 01/31/17 01/31/17 10:59 16:23 POC Glucose (mg/dL) 226 H 149 H Attending/Attestation - Attestation I have personally seen and examined this patient.: Yes I have fully participated in the care of the patient.: Yes I have reviewed all pertinent clinical information: Yes
[2017-01-29 09:17] LABS: AMYLASE 125 U/L (30-110); LIPASE 57 U/L (23-300)
[2017-01-29] MEDS: GlipiZIDE 10 mg SR Tab PO SCH ×2 (09:23→17:36)
[2017-01-29] MEDS: Insulin Lispro (humaLOG) 100 Units/ml Inj SC SCH ×4 (09:23→22:15)
[2017-01-29] MEDS: Enoxaparin 40 mg Syringe SC SCH (09:24)
--- NOTE | 2017-01-29 17:33 | VASCULAR ---
Procedure: Ultrasound and fluoroscopically placed Right upper extremity PICC. Clinical indication: Long-term IV antibiotics. Technique: The relative risks and indications of the procedure were explained to the patient and written informed consent obtained. The patient was placed supine on the angiographic table and the right arm prepped and draped in the usual sterile fashion. A tourniquet was applied to the right axilla. 1% lidocaine was used to anesthetize the skin and soft tissues at the puncture site above the elbow. The right brachial vein was punctured under direct ultrasound guidance with a micropuncture set. A 0.018 guidewire was advanced centrally and used to measure the length to the SVC/RA junction. A 4 [place] single-lumen PICC size 30 for cm long was advanced to the SVC/RA junction. The catheter was flushed and secured. The patient tolerated the procedure well. Impression: Ultrasound and fluoroscopically placed right upper extremity PICC. A 4 [place] single -lumen PICC line size 35 cm long was advanced to the SVC/RA junction
[2017-01-29] MEDS: Insulin Detemir 100 Units/ml Inj SC SCH (21:38)
[2017-01-30] MEDS: Piperacillin/Tazobact 3.375 GM in Sodium Chloride 0.9% 100 ML IVPB SCH ×2 (03:40→09:39)
[2017-01-30 06:46] LABS: BASO # 0.1 K/uL (0.0-0.2); BASO % 0.4 % (0.0-2.0); EOS # 0.2 K/uL (0.0-0.7); HEMATOCRIT 37.8 % (35.0-51.0); LYMPH # 2.1 K/uL (1.0-4.3); LYMPH % 13.7 % (20.0-40.0); MEAN CELL VOLUME 81.5 fl (80.0-94.0); MEAN CORPUSCULAR HEMOGLOBIN 25.3 pg (27.0-31.0); MEAN CORPUSCULAR HGB CONC 31.1 g/dL (33.0-37.0); MEAN PLATELET VOLUME 9.6 fl (7.2-11.7); MONO # 1.4 K/uL (0.0-0.8); MONO % 8.8 % (0.0-10.0); NEUT # 11.9 K/uL (1.8-7.0); NEUT % 76.1 % (50.0-75.0); WHITE BLOOD COUNT 15.6 K/uL (4.8-10.8)
[2017-01-30 06:52] LABS: ALB/GLOB RATIO 1.2 (1.0-2.1); ALKALINE PHOSPHATASE 37 U/L (38-126); ALT/SGPT 30 U/L (21-72); AMYLASE 135 U/L (30-110); AST/SGOT 22 U/L (17-59); BILIRUBIN,TOTAL 0.3 mg/dl (0.2-1.3); BLOOD UREA NITROGEN 9 mg/dl (9-20); CALCIUM 8.3 mg/dL (8.4-10.2); CARBON DIOXIDE 28 mmol/L (22-30); CHLORIDE 100 mmol/L (98-107); GFR AFRICAN-AMERICAN > 60; GLUCOSE,RANDOM 97 mg/dL (75-110); LIPASE 28 U/L (23-300); POTASSIUM 3.4 MMOL/L (3.6-5.0); SODIUM 136 mmol/l (132-148); TOTAL PROTEIN 6.3 G/DL (6.3-8.2)
[2017-01-30] MEDS: Insulin Lispro (humaLOG) 100 Units/ml Inj SC SCH ×4 (08:37→22:37)
[2017-01-30] MEDS: GlipiZIDE 10 mg SR Tab PO SCH ×2 (09:00→17:10)
--- NOTE | 2017-01-30 09:36 | CP.PCM.PN ---
Addendum entered and electronically signed by Lashonda Moon MD 01/30/17 14: 43: Patient currently not NPO-states wants a diet.Diet changed. Zosyn discontinued; PO cipro and flagyl started. Original Note: Subjective - Date & Time of Evaluation Date of Evaluation: 01/30/17 Time of Evaluation: 09:00 - Subjective Subjective: Patient seen and examined. No acute events overnight.Continues to complain of diffuse abdominal pain,controlled with IV medication. Pt tolerating liquid diet , requesting regular diet as patient is hungry. No complaints of nausea/ vomiting, fever, chills. Patient moved bowels today: 1 episode of loose stool no blood. Voiding with no difficulty. Objective - Vital Signs/Intake and Output Vital Signs (last 24 hours): Temp Pulse Resp BP Pulse Ox 97.6 F 93 H 18 143/71 94 L 01/30/17 08:33 01/30/17 08:33 01/30/17 08:33 01/30/17 08:33 01/30/17 08:33 Intake and Output: 01/30/17 01/30/17 06:59 18:59 Intake Total 212 Balance 212 - Medications Medications: Current Medications Atorvastatin Calcium (Lipitor) 10 mg PO DAILY [facility] Last Admin: 01/29/17 09:23 Dose: 10 mg Enoxaparin Sodium (Lovenox) 40 mg SC DAILY [facility] PRN Reason: Protocol Last Admin: 01/29/17 09:24 Dose: 40 mg Gabapentin (Neurontin) 300 mg PO TID [facility] Last Admin: 01/29/17 17:36 Dose: 300 mg Glipizide (Glucotrol Xl) 10 mg PO BID [facility] Last Admin: 01/29/17 17:36 Dose: 10 mg Hydromorphone HCl (Dilaudid) 1 mg IVP Q4H PRN PRN Reason: Pain, moderate (4-7) Stop: 01/30/17 22:32 Hydromorphone HCl (Dilaudid) 2 mg IVP Q4H PRN PRN Reason: Pain, severe (8-10) Last Admin: 01/30/17 06:01 Dose: 2 mg Piperacillin Sod/Tazobactam (Sod 3.375 gm/ Sodium Chloride) 100 mls @ 100 mls/ hr IVPB Q6 [facility] Last Admin: 01/30/17 03:40 Dose: 100 mls/hr Insulin Detemir (Levemir) 42 units SC HS [facility] Last Admin: 01/29/17 21:38 Dose: 42 units Insulin Human Lispro (Humalog) 0 units SC ACHS [facility] PRN Reason: Protocol Last Admin: 01/30/17 08:37 Dose: Not Given Lisinopril (Zestril) 10 mg PO HS [facility] Last Admin: 01/29/17 21:37 Dose: 10 mg Metformin HCl (Glucophage) 1,000 mg PO BID [facility] Last Admin: 01/29/17 17:36 Dose: 1,000 mg Metoclopramide HCl (Reglan) 10 mg IVP Q6 PRN PRN Reason: Nausea/Vomiting Metoprolol Tartrate (Lopressor) 25 mg PO BID [facility] Last Admin: 01/29/17 17:36 Dose: 25 mg Pioglitazone HCl (Actos) 30 mg PO DAILY [facility] Last Admin: 01/29/17 09:22 Dose: 30 mg - Labs Labs: 01/30/17 05:30 01/30/17 05:30 - Constitutional Appears: No Acute Distress - Eye Exam Eye Exam: EOMI - ENT Exam ENT Exam: Mucous Membranes Moist - Neck Exam Neck Exam: Full ROM - Respiratory Exam Respiratory Exam: Clear to Ausculation Bilateral, NORMAL BREATHING PATTERN - Cardiovascular Exam Cardiovascular Exam: +S1, +S2 - GI/Abdominal Exam GI & Abdominal Exam: Tenderness, Hypoactive Bowel Sounds. absent: Firm, Rigid, Pulsatile Mass Additional comments: diffuse tenderness on moderate palpation - Extremities Exam Extremities Exam: absent: Calf Tenderness, Full ROM, Joint Swelling - Back Exam Back Exam: absent: CVA tenderness (L), CVA tenderness (R) Assessment and Plan - Assessment and Plan (Free Text) Assessment: 61 year old male admitted for intractable pain, leukocytosis, hyperglycemia and po intolerance secondary to gastroparesis. Leukocytosis is chronic, however infectious etiology must be ruled out. Patient started on IV zosyn empirically, pending cultures preliminary reports have been negative. . Intractable abdominal pain Status: Acute -likely secondary to gastroparesis diabeticorum -dilaudid 1 mg q4 prn -diet advanced to soft regular. monitor tolerance -pending renal ultrasound, UA: due to history of renal stones -zosyn IVP -pending imaging studies, will consider PO antibiotics. .Gastroparesis diabeticorum Status: Chronic -chronic hx of gastroparesis with intractable pain -Pt to be enrolled in program for possible gastric stimulator placement. Dr. Smith is actively trying to get patient approved. Will be discussed with pt. -Pt of Dr. Chacon (GI) -reglan is prn, consider resuming home regimen in AM given pt is tolerating diet. -home regimen is 10mg TID . Diabetes mellitus with hyperglycemia, with long-term current use of insulin Status: Chronic -resume home medications -accuchecks, insulin sliding scale -levemir 42 units hs -glucotrol xl 10mg PO BID -metformin 1000mg PO BID -Actos 30mg PO daily -gabapentin 300mg TID resumed for diabetic neuropathy Leukocytosis -Patient has chronic high baseline leukocytosis as per chart -improved 15.6 -Patient currently afebrile . HTN Status:chronic resume home medications -zestril 10mg PO HS -Lopressor 25mg PO BID .HLD Status:chronic -lipitor 10mg .DVT prophylaxis Status: Acute -lovenox 40 mg sc
[2017-01-30] MEDS: Enoxaparin 40 mg Syringe SC SCH (09:39)
[2017-01-30] MEDS ORDERED: Insulin Detemir 100 Units/ml Inj SC SCH (11:06)
[2017-01-30 12:59] VITALS: RESP 20
[2017-01-30] MEDS: HYDROmorphone 0.5 mg/0.5 ml ISec IVP PRN ×3 (14:19→22:27)
[2017-01-30 14:59] LABS: RBC URINE 2 /hpf (0-3); URINE BILIRUBIN NEGATIVE (NEGATIVE); URINE BLOOD NEGATIVE (NEGATIVE); URINE COLOR YELLOW (YELLOW); URINE GLUCOSE (UA) NEG (Normal); URINE KETONE NEGATIVE (NEGATIVE); URINE LEUKOCYTE ESTERASE NEG Leu/uL (Negative); URINE PROTEIN NEGATIVE (NEGATIVE); URINE UROBILINOGEN 0.2-1.0 mg/dL (0.2-1.0); WBC URINE 1 /hpf (0-5)
[2017-01-30] MEDS ORDERED: Insulin Detemir 100 Units/ml Inj SC ONE (22:26)
[2017-01-31] MEDS: HYDROmorphone 0.5 mg/0.5 ml ISec IVP PRN ×3 (06:48→16:12)
[2017-01-31 07:54] VITALS: TEMP 98.2
[2017-01-31] MEDS: Insulin Lispro (humaLOG) 100 Units/ml Inj SC SCH ×3 (08:16→16:24)
[2017-01-31] MEDS: GlipiZIDE 10 mg SR Tab PO SCH ×3 (09:27→16:26)
[2017-01-31] MEDS: Enoxaparin 40 mg Syringe SC SCH (09:41)
--- NOTE | 2017-01-31 11:33 | CP.PCM.DIS ---
Provider - Provider Date of Admission: 01/29/17 13:34 Attending physician: Quincy Smith MD Primary care physician: Quincy Smith MD Time Spent in preparation of Discharge (in minutes): 30 Diagnosis - Discharge Diagnosis (1) Intractable abdominal pain Status: Acute (2) Gastroparesis diabeticorum Status: Chronic (3) Leukocytosis Status: Chronic (4) Diabetes mellitus with hyperglycemia, with long-term current use of insulin Status: Chronic (5) Hypertension Status: Chronic (6) Hyperlipidemia Status: Chronic (7) DVT prophylaxis Status: Acute Hospital Course - Lab Results Lab Results: Most Recent Lab Values WBC 15.6 K/uL (4.8-10.8) H 01/30/17 05:30 RBC 4.64 Mil/uL (4.40-5.90) 01/30/17 05:30 Hgb 11.8 g/dL (12.0-18.0) L 01/30/17 05:30 Hct 37.8 % (35.0-51.0) 01/30/17 05:30 MCV 81.5 fl (80.0-94.0) 01/30/17 05:30 MCH 25.3 pg (27.0-31.0) L 01/30/17 05:30 MCHC 31.1 g/dL (33.0-37.0) L 01/30/17 05:30 RDW 16.0 % (11.5-14.5) H 01/30/17 05:30 Plt Count 244 K/uL (130-400) 01/30/17 05:30 MPV 9.6 fl (7.2-11.7) 01/30/17 05:30 Neut % (Auto) 76.1 % (50.0-75.0) H 01/30/17 05:30 Lymph % (Auto) 13.7 % (20.0-40.0) L 01/30/17 05:30 [place] % (Auto) 8.8 % (0.0-10.0) 01/30/17 05:30 Eos % (Auto) 1.0 % (0.0-4.0) 01/30/17 05:30 Baso % (Auto) 0.4 % (0.0-2.0) 01/30/17 05:30 Neut # 11.9 K/uL (1.8-7.0) H 01/30/17 05:30 Lymph # 2.1 K/uL (1.0-4.3) 01/30/17 05:30 [place] # 1.4 K/uL (0.0-0.8) H 01/30/17 05:30 Eos # 0.2 K/uL (0.0-0.7) 01/30/17 05:30 Baso # 0.1 K/uL (0.0-0.2) 01/30/17 05:30 Neutrophils % (Manual) 92 % (42-75) H 01/28/17 15:20 Lymphocytes % (Manual) 5 % (20-50) L 01/28/17 15:20 Reactive Lymphs % 1 % (0-0) H 01/28/17 15:20 Monocytes % (Manual) 1 % (0-10) 01/28/17 15:20 Eosinophils % (Manual) 1 % (0-7) 01/28/17 15:20 Platelet Estimate Normal (NORMAL) 01/28/17 15:20 Hypochromasia (manual) Slight 01/28/17 15:20 Anisocytosis (manual) Slight 01/28/17 15:20 pO2 36 mm/Hg (30-55) 01/28/17 15:45 VBG pH 7.40 (7.32-7.43) 01/28/17 15:45 VBG pCO2 45 mmHg (40-60) 01/28/17 15:45 VBG HCO3 26.1 mmol/L 01/28/17 15:45 VBG Total CO2 29.3 mmol/L (22-28) H 01/28/17 15:45 VBG O2 Sat (Calc) 82.8 % (40-65) H 01/28/17 15:45 VBG Base Excess 2.5 mmol/L (0.0-2.0) H 01/28/17 15:45 VBG Potassium 4.7 mmol/L (3.6-5.2) 01/28/17 15:45 Sodium 139.0 mmol/L (132-148) 01/28/17 15:45 Chloride 96.0 mmol/L (98-107) L 01/28/17 15:45 Glucose 553 mg/dL (75-110) H* 01/28/17 15:45 Lactate 3.8 mmol/L (0.7-2.1) H 01/28/17 15:45 FiO2 21.0 % 01/28/17 15:45 Blood Gas Comments Lactate 3.8 01/28/17 15:45 Crit Value Called To omar Salinas 01/28/17 15:45 Crit Value Called By 203 01/28/17 15:45 Crit Value Read Back Y 01/28/17 15:45 Blood Gas Notified Time 1552 01/28/17 15:45 Sodium 136 mmol/l (132-148) 01/30/17 05:30 Potassium 3.4 MMOL/L (3.6-5.0) L 01/30/17 05:30 Chloride 100 mmol/L (98-107) 01/30/17 05:30 Carbon Dioxide 28 mmol/L (22-30) 01/30/17 05:30 Anion Gap 11 (10-20) 01/30/17 05:30 BUN 9 mg/dl (9-20) 01/30/17 05:30 Creatinine 0.7 mg/dL (0.8-1.5) L 01/30/17 05:30 Est GFR ( Amer) > 60 01/30/17 05:30 Est GFR (Non-Af Amer) > 60 01/30/17 05:30 POC Glucose (mg/dL) 226 mg/dL (65-110) H 01/31/17 10:59 Random Glucose 97 mg/dL (75-110) 01/30/17 05:30 Calcium 8.3 mg/dL (8.4-10.2) L 01/30/17 05:30 Phosphorus 4.3 mg/dl (2.5-4.5) 01/28/17 15:20 Magnesium 1.6 MG/DL (1.6-2.3) 01/28/17 15:20 Total Bilirubin 0.3 mg/dl (0.2-1.3) 01/30/17 05:30 AST 22 U/L (17-59) 01/30/17 05:30 ALT 30 U/L (21-72) 01/30/17 05:30 Alkaline Phosphatase 37 U/L (38-126) L D 01/30/17 05:30 Total Protein 6.3 G/DL (6.3-8.2) 01/30/17 05:30 Albumin 3.4 g/dL (3.5-5.0) L D 01/30/17 05:30 Globulin 2.9 gm/dL (2.2-3.9) 01/30/17 05:30 Albumin/Globulin Ratio 1.2 (1.0-2.1) 01/30/17 05:30 Amylase 135 U/L (30-110) H 01/30/17 05:30 Lipase 28 U/L (23-300) 01/30/17 05:30 Venous Blood Potassium 4.7 mmol/L (3.6-5.2) 01/28/17 15:45 Urine Color Yellow (YELLOW) 01/30/17 14:40 Urine Clarity Clear (Clear) 01/30/17 14:40 Urine pH 5.0 (5.0-8.0) 01/30/17 14:40 Ur Specific [place] 1.016 (1.003-1.030) 01/30/17 14:40 Urine Protein Negative mg/dL (NEGATIVE) 01/30/17 14:40 Urine Glucose (UA) Neg mg/dL (Normal) 01/30/17 14:40 Urine Ketones Negative mg/dL (NEGATIVE) 01/30/17 14:40 Urine Blood Negative (NEGATIVE) 01/30/17 14:40 Urine Nitrate Negative (NEGATIVE) 01/30/17 14:40 Urine Bilirubin Negative (NEGATIVE) 01/30/17 14:40 Urine Urobilinogen 0.2-1.0 mg/dL (0.2-1.0) 01/30/17 14:40 Ur Leukocyte Esterase Neg Jennifer/uL (Negative) 01/30/17 14:40 Urine RBC (Auto) 2 /hpf (0-3) 01/30/17 14:40 Urine Microscopic WBC 1 /hpf (0-5) 01/30/17 14:40 Ur Squamous Epith Cells 1 /hpf (0-5) 01/30/17 14:40 Serum Ketones Small (NEGATIVE) 01/28/17 15:20 - Hospital Course Hospital Course: 61 year old male admitted for intractable pain, leukocytosis, hyperglycemia and po intolerance secondary to gastroparesis. Patient treated with IV antibiotics, and dilaudid for pain control. Able to tolerate PO intake with improvement of leukocytosis today. Clinically improved. Encouraged patient to follow up with Dr. Marcum. Would possibly benefit from gastric stimulator. Dr. Smith is actively trying to get this for this patient. Recommended patient be discharged on PO cipro/flagyl. However patient is refusing antibiotics. Rx given. Resume home medications. Discharge Exam - Head Exam Head Exam: NORMAL INSPECTION, NORMOCEPHALIC - Respiratory Exam Respiratory Exam: UNREMARKABLE - Cardiovascular Exam Cardiovascular Exam: REGULAR RHYTHM, +S1, +S2 - GI/Abdominal Exam GI & Abdominal Exam: Distended, Hypoactive Bowel Sounds. absent: Tenderness - Rectal Exam Rectal Exam: Deferred - Neurological Exam Neurological exam: CN II-XII Intact - Psychiatric Exam Psychiatric exam: Depressed - Skin Skin Exam: Dry, Intact Discharge Plan - Discharge Medications Prescriptions: Ciprofloxacin [Cipro] 500 mg PO Q12 #14 tab metroNIDAZOLE [Flagyl] 500 mg PO Q12 #14 tab - Follow Up Plan Condition: FAIR Disposition: HOME/ ROUTINE Patient education suggested?: Yes Instructions: Diabetic Gastroparesis (DC) Additional Instructions: Follow up with Dr. Smith in 1 week. Referrals: Quincy Smith MD [Primary Care Provider] - Wicho Marcum MD [Staff Provider] -
[2017-01-31 15:30] VITALS: BP 150/76; O2SAT 97
[2017-01-31 16:08] VITALS: PULSE 78
--- NOTE | 2017-01-31 16:59 | CP.PCM.PN ---
<Smooth Grayson - Last Filed: 01/31/17 16:57> Subjective - Date & Time of Evaluation Date of Evaluation: 01/31/17 Time of Evaluation: 16:55 - Subjective Subjective: Procedure explained to patient, and was lowered to supine position. Dressing removed from PICC line. While patient held his breath on inhalation and bearing down, PICC line was removed. Full 35cm line intact. Pressure was held at site for five minutes. Hemostasis achieved. Pressure dressing applied. Vital signs remained stable. <Quincy Mcdonald - Last Filed: 02/01/17 07:05> Objective - Vital Signs/Intake and Output Vital Signs (last 24 hours): Temp Pulse Resp BP Pulse Ox 98.2 F 78 20 150/76 97 01/31/17 15:30 01/31/17 16:08 01/31/17 15:30 01/31/17 16:08 01/31/17 15:30 - Labs Labs: 01/30/17 05:30 01/30/17 05:30 Attending/Attestation - Attestation I have personally seen and examined this patient.: Yes I have fully participated in the care of the patient.: Yes I have reviewed all pertinent clinical information, including history, physical exam and plan: Yes
== END 2017-01-31 17:51 | disposition home or self-care (01) | DRG 74 ==
LOC: H.ER 12:28 → H.ERHOLD 18:04 → H.TEL 20:11 → OBSVTOIN 01-29 13:34 → H.MEDSURG1 01-30 15:40
PROVIDERS: ADMIT Family Medicine; ATTEND Family Medicine
PROC: 02HV33Z Insertion of Infusion Device into Superior Vena Cava, Percutaneous Approach (ICD-10-PCS; principal; 2017-01-28)
PROC: B518ZZA Fluoroscopy of Superior Vena Cava, Guidance (ICD-10-PCS; 2017-01-28)
PROC: B548ZZA Ultrasonography of Superior Vena Cava, Guidance (ICD-10-PCS; 2017-01-28)
DX: E11.43 Type 2 diabetes mellitus with diabetic autonomic (poly)neuropathy (principal); E11.65 Type 2 diabetes mellitus with hyperglycemia; I10 Essential (primary) hypertension; E78.00 Pure hypercholesterolemia, unspecified; E78.5 Hyperlipidemia, unspecified; E86.0 Dehydration; K31.84 Gastroparesis; Z79.4 Long term (current) use of insulin; Z79.84 Long term (current) use of oral hypoglycemic drugs; Z87.891 Personal history of nicotine dependence; R03.0 Elevated blood-pressure reading, without diagnosis of hypertension

== ENCOUNTER 2017-05-08 23:57 | Inpatient (IN) | payer OTHER ==
[2017-05-08 23:57] VITALS: BMI 34.0
--- NOTE | 2017-05-09 00:40 | ED PDOC ---
HPI: Abdomen Chief Complaint (Provider): Abdominal pain History Per: Patient History/Exam Limitations: clinical condition Onset/Duration Of Symptoms: Days (1) Severity: Severe Location Of Pain/Discomfort: Diffuse Quality Of Discomfort: "Pain" Associated Symptoms: Nausea, Vomiting, Loss Of Appetite. denies: Fever, Chills , Diarrhea, Chest Pain Exacerbating Factors: None Alleviating Factors: None <Isac Neal - Last Filed: 05/09/17 05:38> <Hany Gottlieb - Last Filed: 05/09/17 05:45> Time Seen by Provider: 05/09/17 00:02 Chief Complaint (Nursing): Abdominal Pain Additional Complaint(s): 61 yo male with uncontrolled diabetes with gastroparesis well known to staff presents to ED with diffuse abdominal pain associated with multiple episodes of vomiting and nausea x 1 day. States has not been taking medications in the last day due to loss of appetite. Denies chest pain, shortness of breath, headache, change of vision, diarrhea. Requests Dilaudid. PMD: Dr. Smith PMH: Uncontrolled DM w/Gastroparesis, HTN, HLD, Diabetic neuropathy Allergies: IV contrast (hives) (Isac Neal) Supervising Attending Note - Supervising Attending Note The Documented history was done by the: Physician Ribber, Attending Physician The documented physical exam was done by the: Physician Ribber, Attending Physician The documented procedures were done by the: Physician Ribber, Attending Physician - Attestation: I have personally seen and examined this patient.: Yes I have fully participated in the care of the patient.: Yes I have reviewed all pertinent clinical information: Yes <Hany Gottlieb - Last Filed: 05/09/17 05:45> Past Medical History Reviewed: Historical Data, Nursing Documentation, Vital Signs - Medical History PMH: Diabetes, HTN, Hypercholesterolemia, Kidney Stones, Pancreatitis Denies: HIV, Chronic Kidney Disease, Sexually Transmitted Disease - Surgical History Surgical History: Cholecystectomy - Family History Family History: States: [place] (Father of heart attack) <Isac Neal - Last Filed: 05/09/17 05:38> <Hnay Gottlieb - Last Filed: 05/09/17 05:45> Vital Signs: Last Vital Signs Temp 98.5 F 05/09/17 00:09 Pulse 94 H 05/09/17 05:14 Resp 16 05/09/17 05:14 BP 153/82 H 05/09/17 05:14 Pulse Ox 98 05/09/17 05:44 - Home Medications Home Medications: Ambulatory Orders Medication Instructions Recorded Gabapentin [Neurontin] 300 mg PO TID 08/14/16 Pioglitazone [Actos] 30 mg PO DAILY 08/14/16 Insulin Detemir [Levemir] 42 units SC HS 10/13/16 Insulin Lispro [Humalog (Insulin 42 units SC ACTID 12/28/16 Lispro)] Atorvastatin [Lipitor] 10 mg PO DAILY 01/28/17 Famotidine [Pepcid] 20 mg PO BID 01/28/17 Furosemide [Lasix] 40 mg PO DAILY 01/28/17 Glimepiride [amaRYL] 4 mg PO BID 01/28/17 Lisinopril [Zestril] 10 mg PO HS 01/28/17 MetFORMIN [glucoPHAGE] 1,000 mg PO BID 01/28/17 Metoclopramide [Reglan] 10 mg PO Q8H 01/28/17 Metoprolol Tartrate [Lopressor] 25 mg PO BID 01/28/17 Ciprofloxacin [Cipro] 500 mg PO Q12 #14 tab 01/31/17 Gabapentin [Neurontin] 300 mg PO TID cap 01/31/17 GlipiZIDE SR [Glucotrol XL] 10 mg PO BID tab 01/31/17 metroNIDAZOLE [Flagyl] 500 mg PO Q12 #14 tab 01/31/17 - Allergies Allergies/Adverse Reactions: Allergies Allergy/AdvReac Type Severity Reaction Status Date / Time iodine Allergy URTICARIA Verified 05/09/17 00:09 Review of Systems ROS Statement: Except As Marked, All Systems Reviewed And Found Negative Cardiovascular: Negative for: Chest Pain Gastrointestinal: Positive for: Nausea, Vomiting, Abdominal Pain <Isac Neal - Last Filed: 05/09/17 05:38> Physical Exam - Reviewed Nursing Documentation Reviewed: Yes Vital Signs Reviewed: Yes - Physical Exam Appears: Positive for: Uncomfortable, In Acute Distress (due to pain) Head Exam: Positive for: ATRAUMATIC, NORMAL INSPECTION, NORMOCEPHALIC Skin: Positive for: Normal Color, Warm, Dry Eye Exam: Positive for: Normal appearance Neck: Positive for: Normal, Painless ROM Cardiovascular/Chest: Positive for: Tachycardia Respiratory: Positive for: Normal Breath Sounds Gastrointestinal/Abdominal: Positive for: Bowel Sounds, Soft, Tenderness ( diffuse), Guarding (voluntary) Extremity: Positive for: Normal ROM. Negative for: Tenderness, Pedal Edema Neurologic/Psych: Positive for: Alert, Oriented <Isac Neal - Last Filed: 05/09/17 05:38> - Laboratory Results Result Diagrams: 05/09/17:17 05/09/17:17 - ECG O2 Sat by Pulse Oximetry: 98 Pulse Ox Interpretation: Normal <Isac Neal - Last Filed: 05/09/17 05:38> - Laboratory Results Result Diagrams: 05/09/17:05/09/17:17 <Hany Gottlieb - Last Filed: 05/09/17 05:45> - Progress ED Course And Treament: Time: 0030 Impression: 61 yo male with uncontrolled DM with diffuse abdominal pain, nausea , vomiting. Plan: -IV insertion -CBC -CMP -LIPASE -ABDOMEN CT W/O CONTRAST -ZOFRAN -TORADOL -EKG -TROP -REASSESS Time: 0200 Multiple attempts to get IV access, successful. afebrile Labs reviewed, lactic acid elevated, WBC elevated, normal pH, elevated Glucose, elevated K (hemolyzed) Insulin 8U IVP STAT Time: 0520 EKG reviewed, sinus tachycardia Abdomen CT w/o contrast IMPRESSION: 1. Small hiatal hernia. Question wall thickening of the distal esophagus. 2. Question mild rectal wall thickening versus underdistention. 3. There is mild soft tissue density and stranding within the omentum. This is fairly diffuse although most prominent anterior to the descending and distal transverse colon. This could represent omental caking as can be seen in metastatic disease. Alternative possibilities include infectious or inflammatory disease. Please correlate clinically and if indicated followup can be obtained. 4. Additional incidental and/or chronic findings as described. Case d/w family day care worker Dr. George, will admit patient to telemetry for hyperglycemia, gastroparesis, tachycardia (Isac Neal) Disposition Counseled Patient/Family Regarding: Studies Performed, Diagnosis - Disposition Disposition Time: 05:44 <Isac Neal - Last Filed: 05/09/17 05:38> - Patient ED Disposition Is Patient to be Admitted: Yes Discussed With DrMichele: Kemi George Doctor Will See Patient In The: ED - Pt Status Changed To: Hospital Disposition Of: Inpatient - Admit Certification Admit to Inpatient:: After my assessment, the patient will require hospitalization for at least two midnights. This is because of the severity of symptoms shown, intensity of services needed, and/or the medical risk in this patient being treated as an outpatient. - POA Present On Arrival: Poor Glycemic Control <Hany Gottlieb - Last Filed: 05/09/17 05:45> - Clinical Impression Clinical Impression: Gastroparesis, Dehydration, Hyperglycemia, Leukocytosis - Disposition Condition: FAIR
[2017-05-09 01:29] LABS: ALB/GLOB RATIO 1.4 (1.0-2.1); ALKALINE PHOSPHATASE 72 U/L (38-126); AST/SGOT 39 U/L (17-59); BILIRUBIN,TOTAL 1.5 mg/dl (0.2-1.3); BLOOD UREA NITROGEN 23 mg/dl (9-20); CALCIUM 10.1 mg/dL (8.4-10.2); CARBON DIOXIDE 21 mmol/L (22-30); CHLORIDE 90 mmol/L (98-107); GFR AFRICAN-AMERICAN > 60; LIPASE 126 U/L (23-300); SODIUM 134 mmol/l (132-148); TOTAL PROTEIN 8.8 G/DL (6.3-8.2)
[2017-05-09 01:30] LABS: ALT/SGPT < 6 U/L (21-72)
[2017-05-09 01:33] LABS: GLUCOSE,RANDOM 464 mg/dL (75-110)
[2017-05-09 01:34] LABS: POTASSIUM 5.6 MMOL/L (3.6-5.0)
[2017-05-09 01:38] LABS: BASO # 0.1 K/uL (0.0-0.2); BASO % 0.4 % (0.0-2.0); EOS % 0.1 % (0.0-4.0); HEMATOCRIT 45.2 % (35.0-51.0); LYMPH # 1.3 K/uL (1.0-4.3); LYMPH % 5.2 % (20.0-40.0); MEAN CELL VOLUME 82.2 fl (80.0-94.0); MEAN CORPUSCULAR HEMOGLOBIN 27.1 pg (27.0-31.0); MEAN PLATELET VOLUME 9.5 fl (7.2-11.7); MONO # 1.2 K/uL (0.0-0.8); MONO % 4.8 % (0.0-10.0); NEUT # 22.7 K/uL (1.8-7.0); NEUT % 89.5 % (50.0-75.0); PLATELET COUNT 222 K/uL (130-400); RED CELL DISTRIBUTION WIDTH 15.7 % (11.5-14.5); WHITE BLOOD COUNT 25.4 K/uL (4.8-10.8)
[2017-05-09] MEDS ORDERED: Sodium Chloride 0.9% 1,000 ML IV SCH ×6 (01:45→14:00)
[2017-05-09] MEDS ORDERED: Insulin Regular 100 units/ml SC STA (04:11)
[2017-05-09] MEDS ORDERED: Insulin Regular 100 units/ml IVP STA (04:12)
[2017-05-09 04:34] LABS: NEUTROPHIL 85 % (42-75); REACTIVE LYMPHOCYTES 1 % (0-0); TOTAL CELLS COUNTED 100
[2017-05-09 05:23] LABS: VENOUS BLOOD GAS BASE EXCESS 2.3 mmol/L (0.0-2.0); VENOUS BLOOD GAS PCO2 39 mmHg (40-60); VENOUS BLOOD PH 7.44 (7.32-7.43)
[2017-05-09] MEDS ORDERED: Glucagon Recombinant 1 mg Inj IM PRN ×2 (06:10→13:10)
[2017-05-09] MEDS ORDERED: Dextrose 50% SYRINGE Inj (50 ml) IV PRN ×2 (06:10→13:10)
--- NOTE | 2017-05-09 06:30 | CP.PCM.HP ---
History of Present Illness - History of Present Illness History of Present Illness: 61 y/o M with PMH including IDDM type 2, HTN, HLD, Diabetic neuropathy and Recurrent diabetic gastroparesis who presents to ED c/o nausea and multiple episodes of vomiting since Wednesday morning, unable to tolerate oral intake. He reports multiple episodes of nonbilious nonbloody vomiting. Also c/o generalized abdominal pain since wednesday morning. Denies fevers, chills, chest pain, shortness of breath, diarrheas. As per patient last BM was yesterday and normal. Patient has been admitted multiple time with similar complaints. Denies sick contacts with similar symptoms. States has not been taking medications in the last day due to loss of appetite. PMD:Dr. Mcdonald PMH: Uncontrolled DM w/Gastroparesis, HTN, HLD, Diabetic neuropathy Allergies: IV contrast (hives) SociaL : hx substance abuse, former smoker Present on Admission - Present on Admission Any Indicators Present on Admission: No History of DVT/PE: No History of Uncontrolled Diabetes: No Urinary Catheter: No Decubitus Ulcer Present: No Review of Systems - Review of Systems All systems: reviewed and no additional remarkable complaints except (as per HPI ) Past Patient History - Infectious Disease Hx of Infectious Diseases: None - Tetanus Immunizations Tetanus Immunization: Unknown - Past Medical History & Family History Past Medical History?: Yes - Past Social History Smoking Status: Former Smoker - CARDIAC Hx Hypercholesterolemia: Yes Hx Hypertension: Yes - PULMONARY Hx Respiratory Disorders: No - NEUROLOGICAL Hx Neurological Disorder: No - HEENT Hx HEENT Problems: No - RENAL Hx Chronic Kidney Disease: No Hx Kidney Stones: Yes - ENDOCRINE/METABOLIC Hx Endocrine Disorders: Yes (DM) Hx Diabetes Mellitus Type 2: Yes Other/Comment: diabetic neuropathy - HEMATOLOGICAL/ONCOLOGICAL Hx Human Immunodeficiency Virus (HIV): No - INTEGUMENTARY Hx Dermatological Problems: No - MUSCULOSKELETAL/RHEUMATOLOGICAL Hx Falls: No - GASTROINTESTINAL Hx Pancreatitis: Yes - GENITOURINARY/GYNECOLOGICAL Hx Sexually Transmitted Disorders: No - PSYCHIATRIC Hx Psychophysiologic Disorder: Yes Hx Substance Use: Yes - SURGICAL HISTORY Hx Cholecystectomy: Yes - ANESTHESIA Hx Anesthesia: Yes Hx Anesthesia Reactions: No Hx Malignant Hyperthermia: No Meds Allergies/Adverse Reactions: Allergies Allergy/AdvReac Type Severity Reaction Status Date / Time iodine Allergy URTICARIA Verified 05/09/17 00:09 Physical Exam - Constitutional Appears: No Acute Distress - ENT Exam ENT Exam: Mucous Membranes Moist - Respiratory Exam Respiratory Exam: Clear to Auscultation Bilateral, NORMAL BREATHING PATTERN - Cardiovascular Exam Cardiovascular Exam: Tachycardia, REGULAR RHYTHM, +S1, +S2 - GI/Abdominal Exam GI & Abdominal Exam: Soft, Tenderness. absent: Distended, Guarding, Rebound ( diffuse tenderness to palpation of all quadrants), Rigid - Extremities Exam Extremities exam: Positive for: normal inspection. Negative for: calf tenderness, pedal edema - Neurological Exam Neurological exam: Alert, Oriented x3 - Skin Skin Exam: Dry, Intact, Normal Color Results - Vital Signs Recent Vital Signs: Last Vital Signs Temp 98.8 F 05/09/17 06:03 Pulse 118 H 05/09/17 06:03 Resp 16 05/09/17 06:03 BP 152/79 H 05/09/17 06:03 Pulse Ox 97 05/09/17 06:03 - Labs Result Diagrams: 05/09/17 01:17 05/09/17 01:17 Labs: Laboratory Results - last 24 hr 05/09/17 05/09/17 05/09/17 01:17 01:17 05:19 WBC 25.4 H D RBC 5.51 Hgb 14.9 D Hct 45.2 MCV 82.2 MCH 27.1 MCHC 33.0 RDW 15.7 H Plt Count 222 MPV 9.5 Neut % (Auto) 89.5 H Lymph % (Auto) 5.2 L [place] % (Auto) 4.8 Eos % (Auto) 0.1 Baso % (Auto) 0.4 Neut # 22.7 H Lymph # 1.3 [place] # 1.2 H Eos # 0.0 Baso # 0.1 Neutrophils % (Manual) 85 H Band Neutrophils % 1 Lymphocytes % (Manual) 8 L Reactive Lymphs % 1 H Monocytes % (Manual) 5 Platelet Estimate Normal Anisocytosis (manual) Slight Target Cells Slight pO2 46 VBG pH 7.44 H VBG pCO2 39 L VBG HCO3 26.3 VBG Total CO2 27.7 VBG O2 Sat (Calc) 84.8 H VBG Base Excess 2.3 H VBG Potassium 7.6 H* Glucose 412 H* D Lactate 3.7 H FiO2 21.0 Crit Value Called To Hany pierce md Crit Value Called By 6075 Crit Value Read Back Y Blood Gas Notified Time 523 Sodium 134 130.0 L Potassium 5.6 H Chloride 90 L 93.0 L Carbon Dioxide 21 L Anion Gap 29 H BUN 23 H Creatinine 0.8 Est GFR ( Amer) > 60 Est GFR (Non-Af Amer) > 60 Random Glucose 464 H* D Calcium 10.1 Total Bilirubin 1.5 H AST 39 ALT < 6 L D Alkaline Phosphatase 72 Troponin I 0.0390 Total Protein 8.8 H Albumin 5.1 H D Globulin 3.7 Albumin/Globulin Ratio 1.4 Lipase 126 Venous Blood Potassium 7.6 H* Assessment & Plan - Assessment and Plan (Free Text) Assessment: 61 years old Male with PMHx of IDDM type 2, HTN, HLD, Diabetic neuropathy and Recurrent diabetic Gastroparesis being admitted for intractable abdominal pain, PO intolerance, and Hyperglycemia. Plan: Intractable abdominal pain, nausea and vomiting -Telemetry -Gastroparesis Diabeticorum vs Infectious Gastroenteritis -PO intolerance -Afebrile -Leukocytosis noted, but pt has a h/o chronic leukocytosis of unknown etiology -NPO -IV fluids. PICC line insertion because PO intolerance, and pt has difficult IV access -Start Reglan 10 mg IV Q8h stan[place], consider switch to PO when PO is tolerated -Zofran 4 mg IV Q6 PRN for N/V -resume home Famotidine 20 mg BID, but started IV, consider switch to PO when PO is tolerated -pain control with toradol ( pt has a h/o requesting narcotics for pain relief) -s/p Morphine 4 mg IV and Toradol 30 mg IV once -f/u UA, lactic acid, procalcitonin -Lipase wnl -Abdominal CT w/o contrast showed: Small hiatal hernia. Question wall thickening of the distal esophagus. Question mild rectal wall thickening versus underdistention. There is mild soft tissue density and stranding within the omentum.This could represent omental caking as can be seen in metastatic disease. Alternative possibilities include infectious or inflammatory disease. Consider GI consult if needed H/O Gastroparesis Diabeticorum -multiple episodes in the past -most likely the cause of his current clinical presentation, however infectious Gastroenteritis most be included in the differential -NPO for now -IV fluids -Start Reglan 10 mg IV Q8h [place]an[place] -Zofran 4 mg IV Q6 PRN for N/V Sinus Tachycardia -HR:elevated most likely 2/2 dehydration BUN slightly elevated f/u VS Diabetes Mellitus with Hyperglycemia -uncontrolled -has not taken his medications because PO intolerance -s/p Humulin R 8 units SC in ED -Regular insulin as per protocol ACHS low dose for now because NPO status. Patient has fluctuant BSL, with hypoglycemic episodes -Hypoglycemia protocol -accucheck ACHS -VBG showed normal PH, with elevated lactic acid -f/u ABG shock panel, BMP ( anion gap) -Consider resume home meds once PO is tolerated Hyperkalemia -K+ 5.6 in ER. Slightly hemolyzed -s/p Humulin R -f/u repeat K+ -EKG showed NSR, tachy Hypertension home meds -c/w Metoprolol T 25 mg PO BID -c/w Lisinopril 10 mg PO HS f/u BP HLD c/w Lipitor 10 mg PO DVT prophylaxis Lovenox 40 mg SC daily - Date & Time Date: 05/09/17 Time: 06:10
--- NOTE | 2017-05-09 08:43 | CT ---
PROCEDURE: CT Abdomen and Pelvis without intravenous contrast HISTORY: diffuse abd pain COMPARISON: 08/21/2016 TECHNIQUE: CT scan of the abdomen pelvis was performed without the use of intravenous contrast. Multiple axial images with coronal and sagittal reconstruction images were obtained.. Contrast Dose: No intravenous contrast was administered. Radiation dose: Total exam DLP = 1059 mGy-cm. This CT exam was performed using one or more of the following dose reduction techniques: Automated exposure control, adjustment of the mA and/or kV according to patient size, and/or use of iterative reconstruction technique. FINDINGS: LOWER THORAX: Minor interstitial changes are seen at the lung base. No infiltrate or effusion is seen. Stable hiatal hernia is identified. LIVER: Diffuse fatty infiltration of the liver is once again noted. No new focal liver mass or intrahepatic ductal dilatation is seen. GALLBLADDER AND BILE DUCTS: Gallbladder is been previously removed. Common bile duct is normal in size for a post cholecystectomy patient of this age. PANCREAS: Unremarkable. No gross lesion or ductal dilatation. SPLEEN: Unremarkable. ADRENALS: Unremarkable. No mass. KIDNEYS AND URETERS: No hydronephrosis. Tiny punctate right renal nonobstructing calculus. Kidneys are otherwise normal in size. VASCULATURE: Aorta is stable in size. Minor atherosclerotic change is noted. BOWEL: Stomach is adequately distended without wall thickening. There is is suggestion of a small low-density fatty mass in the region of the gastric antrum, unchanged and probably representing small lipoma. No colonic wall thickening is appreciated. No pericolonic inflammatory changes are noted. There is under distention of the rectum limiting evaluation. No perirectal inflammatory changes are seen. APPENDIX: Unremarkable. Normal appendix. PERITONEUM: No ascites is seen. There is however stable areas of mild induration of the omentum in the anterior abdomen, greater towards the left. This is seen in retrospect on the prior study and is nonspecific. Differential could be related to prior peritonitis and abdominal surgery. Clinical follow-up would be suggested as other etiologies are not fully excluded. LYMPH NODES: No appreciable abdominal lymphadenopathy or retroperitoneal lymphadenopathy. BLADDER: Bladder is adequately distended without wall thickening. REPRODUCTIVE: Prostate gland is unchanged. BONES: Bony structures are intact. No new lesion is appreciated. There is stable degenerative changes in the lumbar spine with mild the superior endplate compression deformity of L3. OTHER FINDINGS: None. IMPRESSION: No evidence of acute inflammatory process in the abdomen or pelvis. No evidence of hydronephrosis or obstructing ureteral calculus. Stable tiny nonobstructing right renal calculus. Stable fatty infiltration of the liver. Status post cholecystectomy. Nonspecific stable areas of omental induration in the anterior abdomen, greater on the left. This may reflect prior peritonitis and or be the sequela of prior abdominal surgery and is unchanged from the prior CT scan dated 08/21/2016. Clinical follow-up is suggested. This agrees with preliminary report provided by the on-call radiologist.
[2017-05-09] MEDS ORDERED: HYDROmorphone 0.5 mg/0.5 ml ISec IVP PRN (10:27)
[2017-05-09] MEDS ORDERED: Insulin Lispro (humaLOG) 100 Units/ml Inj SC ONE (10:45)
[2017-05-09] MEDS ORDERED: Labetalol 5 mg/ml Inj 20ML IVP STA (10:48)
[2017-05-09] MEDS: Insulin Regular 100 units/ml SC SCH ×2 (12:11)
[2017-05-09 12:19] LABS: HEMATOCRIT 39.8 % (35.0-51.0); MEAN CORPUSCULAR HEMOGLOBIN 25.6 pg (27.0-31.0); MEAN CORPUSCULAR HGB CONC 32.7 g/dL (33.0-37.0); WHITE BLOOD COUNT 24.3 K/uL (4.8-10.8)
[2017-05-09 12:22] LABS: MEAN CELL VOLUME 78.4 fl (80.0-94.0)
[2017-05-09 12:29] LABS: ALB/GLOB RATIO 1.4 (1.0-2.1); ALKALINE PHOSPHATASE 53 U/L (38-126); ALT/SGPT 17 U/L (21-72); AST/SGOT 27 U/L (17-59); BILIRUBIN,TOTAL 0.8 mg/dl (0.2-1.3); BLOOD UREA NITROGEN 29 mg/dl (9-20); CALCIUM 8.9 mg/dL (8.4-10.2); CARBON DIOXIDE 22 mmol/L (22-30); CHLORIDE 94 mmol/L (98-107); GFR AFRICAN-AMERICAN > 60; GLUCOSE,RANDOM 366 mg/dL (75-110); SODIUM 134 mmol/l (132-148); TOTAL PROTEIN 6.6 G/DL (6.3-8.2)
[2017-05-09 12:30] LABS: POTASSIUM 5.1 MMOL/L (3.6-5.0)
[2017-05-09 13:11] LABS: RBC URINE 2 /hpf (0-3); URINE BILIRUBIN NEGATIVE (NEGATIVE); URINE BLOOD MODERATE (NEGATIVE); URINE COLOR YELLOW (YELLOW); URINE GLUCOSE (UA) >=500 mg/dL (Normal); URINE KETONE 80 mg/dL (NEGATIVE); URINE LEUKOCYTE ESTERASE NEG Leu/uL (Negative); URINE PROTEIN 30 mg/dL (NEGATIVE); URINE UROBILINOGEN 0.2-1.0 mg/dL (0.2-1.0); WBC URINE < 1 /hpf (0-5)
--- NOTE | 2017-05-09 15:40 | RAD ---
HISTORY: increased lactate COMPARISON: 01/18/2017, 01/28/2017 TECHNIQUE: Chest PA and lateral FINDINGS: LUNGS: Right PICC line is been removed since prior study. There is prominent right cardiophrenic fat pad, unchanged. No new focal infiltrate is seen. Mild interstitial changes are once again identified. Trachea is midline. PLEURA: No significant pleural effusion identified. No pneumothorax apparent. CARDIOVASCULAR: Normal. OSSEOUS STRUCTURES: No significant abnormalities. VISUALIZED UPPER ABDOMEN: Normal. OTHER FINDINGS: None. IMPRESSION: No evidence of focal infiltrate or CHF.
[2017-05-09] MEDS ORDERED: Enoxaparin 40 mg Syringe SC SCH (17:00)
[2017-05-09] MEDS: Insulin Lispro (humaLOG) 100 Units/ml Inj SC SCH ×2 (17:03→22:08)
[2017-05-09] MEDS: Enoxaparin 40 mg Syringe SC SCH (20:01)
[2017-05-09 20:42] LABS: HEMATOCRIT 40.3 % (35.0-51.0); MEAN CORPUSCULAR HGB CONC 32.3 g/dL (33.0-37.0); RED CELL DISTRIBUTION WIDTH 15.5 % (11.5-14.5); WHITE BLOOD COUNT 23.1 K/uL (4.8-10.8)
[2017-05-09 20:45] LABS: MEAN CELL VOLUME 80.6 fl (80.0-94.0)
[2017-05-09 20:55] LABS: ALB/GLOB RATIO 1.3 (1.0-2.1); ALKALINE PHOSPHATASE 49 U/L (38-126); ALT/SGPT 25 U/L (21-72); AST/SGOT 25 U/L (17-59); BILIRUBIN,TOTAL 0.8 mg/dl (0.2-1.3); BLOOD UREA NITROGEN 22 mg/dl (9-20); CALCIUM 8.7 mg/dL (8.4-10.2); CARBON DIOXIDE 26 mmol/L (22-30); CHLORIDE 96 mmol/L (98-107); GFR AFRICAN-AMERICAN > 60; GLUCOSE,RANDOM 266 mg/dL (75-110); POTASSIUM 4.2 MMOL/L (3.6-5.0); SODIUM 135 mmol/l (132-148); TOTAL PROTEIN 6.9 G/DL (6.3-8.2)
[2017-05-09] MEDS ORDERED: Dextrose 5%/0.45% NS 1,000 ML IV SCH (21:00)
[2017-05-09] MEDS: Potassium Ch 20mEq in D5-1/2NS 1,000 ML IV SCH (22:06)
[2017-05-10 06:14] LABS: BLOOD UREA NITROGEN 18 mg/dl (9-20); CALCIUM 8.4 mg/dL (8.4-10.2); CARBON DIOXIDE 25 mmol/L (22-30); CHLORIDE 97 mmol/L (98-107); GFR AFRICAN-AMERICAN > 60; GLUCOSE,RANDOM 333 mg/dL (75-110); MAGNESIUM 1.9 MG/DL (1.6-2.3); PHOSPHOROUS 3.1 mg/dl (2.5-4.5); POTASSIUM 4.5 MMOL/L (3.6-5.0); SODIUM 134 mmol/l (132-148)
[2017-05-10 06:20] LABS: BASO # 0.2 K/uL (0.0-0.2); BASO % 0.9 % (0.0-2.0); EOS # 0.1 K/uL (0.0-0.7); EOS % 0.7 % (0.0-4.0); HEMATOCRIT 40.3 % (35.0-51.0); LYMPH # 1.9 K/uL (1.0-4.3); LYMPH % 10.7 % (20.0-40.0); MEAN CELL VOLUME 81.6 fl (80.0-94.0); MEAN CORPUSCULAR HEMOGLOBIN 25.9 pg (27.0-31.0); MEAN CORPUSCULAR HGB CONC 31.8 g/dL (33.0-37.0); MEAN PLATELET VOLUME 9.5 fl (7.2-11.7); MONO # 1.7 K/uL (0.0-0.8); MONO % 9.5 % (0.0-10.0); NEUT % 78.2 % (50.0-75.0); RED CELL DISTRIBUTION WIDTH 15.7 % (11.5-14.5); WHITE BLOOD COUNT 17.9 K/uL (4.8-10.8)
[2017-05-10] MEDS: Insulin Lispro (humaLOG) 100 Units/ml Inj SC SCH ×4 (06:44→22:05)
[2017-05-10] MEDS: Potassium Ch 20mEq in D5-1/2NS 1,000 ML IV SCH (06:57)
--- NOTE | 2017-05-10 08:14 | CARD ---
APPROVED REPORT EKG Measurement Heart [id number] <Conclusion> Sinus tachycardia Possible Left atrial enlargement Borderline ECG
--- NOTE | 2017-05-10 08:39 | CP.PCM.PN ---
<Chinmay El - Last Filed: 05/10/17 09:51> Subjective - Date & Time of Evaluation Date of Evaluation: 05/10/17 Time of Evaluation: 08:36 - Subjective Subjective: pt seen and examined at bedside this morning with attending. No acute events overnight. Afebrile. Currently NPO. Pain controlled with 1mg Dilaudid Q4H. Labs reviewed, no anion gap appreciated. Blood sugar better controlled. WBC trending down. Pt lying in bed comfortably, NAD. Objective - Vital Signs/Intake and Output Vital Signs (last 24 hours): Temp Pulse Resp BP Pulse Ox 97.7 F 75 18 157/67 H 98 05/10/17 08:00 05/10/17 08:00 05/10/17 08:00 05/10/17 08:00 05/10/17 08:00 Intake and Output: 05/10/17 05/10/17 06:59 18:59 Intake Total 1850 Output Total 1500 Balance 350 - Medications Medications: Current Medications Atorvastatin Calcium (Lipitor) 10 mg PO HS [facility] Last Admin: 05/09/17 22:05 Dose: 10 mg Dextrose (Dextrose 50% Inj) 0 ml IV STAT PRN; Protocol PRN Reason: Hyglycemia Protocol Dextrose (Glutose 15) 0 gm PO ONCE PRN; Protocol PRN Reason: Hypoglycemia Protocol Dextrose (Dextrose 50% Inj) 0 ml IV STAT PRN; Protocol PRN Reason: Hyglycemia Protocol Dextrose (Glutose 15) 0 gm PO ONCE PRN; Protocol PRN Reason: Hypoglycemia Protocol Enoxaparin Sodium (Lovenox) 40 mg SC DAILY@2100 [facility] PRN Reason: Protocol Last Admin: 05/09/17 20:01 Dose: 40 mg Famotidine (Pepcid) 20 mg IVP Q12 [facility] Last Admin: 05/09/17 20:03 Dose: 20 mg Gabapentin (Neurontin) 300 mg PO TID [facility] Last Admin: 05/09/17 16:59 Dose: 300 mg Glucagon (Glucagen Diagnostic Kit) 0 mg IM STAT PRN; Protocol PRN Reason: Hypoglycemia Protocol Glucagon (Glucagen Diagnostic Kit) 0 mg IM STAT PRN; Protocol PRN Reason: Hypoglycemia Protocol Hydromorphone HCl (Dilaudid) 1 mg IVP Q4 PRN PRN Reason: Pain, severe (8-10) Last Admin: 05/10/17 04:25 Dose: 1 mg Sodium Chloride (Sodium Chloride 0.9%) 1,000 mls @ 999 mls/hr IV .Q1H1M [facility] Stop: 05/10/17 09:39 Sodium Chloride (Sodium Chloride 0.9%) 1,000 mls @ 999 mls/hr IV .Q1H1M [facility] Last Admin: 05/09/17 09:59 Dose: 999 mls/hr Vancomycin HCl 1 gm/ Sodium (Chloride) 250 mls @ 166.667 mls/hr IVPB DAILY [facility] Last Admin: 05/09/17 12:14 Dose: 166.667 mls/hr Piperacillin Sod/Tazobactam (Sod 2.25 gm/ Sodium Chloride) 100 mls @ 100 mls/ hr IVPB Q12 [facility] Last Admin: 05/09/17 20:02 Dose: 100 mls/hr Potassium Chloride/Dextrose/Sod Cl (Potassium Chl 20 Meq In D5-1/2ns) 1,000 mls @ 148.515 mls/hr IV .Q6H44M [facility] Stop: 05/10/17 21:09 Last Admin: 05/10/17 06:57 Dose: 148.515 mls/hr Insulin Human Lispro (Humalog) 0 units SC ACCU-CHECK [facility] PRN Reason: Protocol Last Admin: 05/10/17 06:44 Dose: 4 units Ketorolac Tromethamine (Toradol) 15 mg IVP Q6 PRN PRN Reason: Pain, moderate (4-7) Lisinopril (Zestril) 10 mg PO HS [facility] Last Admin: 05/09/17 22:05 Dose: 10 mg Metoclopramide HCl (Reglan) 10 mg IVP Q8 [facility] Last Admin: 05/10/17 00:05 Dose: 10 mg Metoprolol Tartrate (Lopressor) 25 mg PO BID [facility] Last Admin: 05/09/17 17:02 Dose: 25 mg Ondansetron HCl (Zofran Inj) 4 mg IVP Q6 PRN PRN Reason: Nausea/Vomiting Last Admin: 05/09/17 10:00 Dose: 4 mg - Labs Labs: 05/10/17 05:20 05/10/17 05:20 - Constitutional Appears: Non-toxic, No Acute Distress - Head Exam Head Exam: ATRAUMATIC - Eye Exam Eye Exam: EOMI. absent: Conjunctival injection Pupil Exam: PERRL - ENT Exam ENT Exam: Mucous Membranes Moist - Neck Exam Neck Exam: Full ROM - Respiratory Exam Respiratory Exam: Clear to Ausculation Bilateral, NORMAL BREATHING PATTERN. absent: Rales, Rhonchi, Wheezes - Cardiovascular Exam Cardiovascular Exam: REGULAR RHYTHM, RRR, +S1, +S2. absent: Gallop, JVD, Rubs, Murmur - GI/Abdominal Exam GI & Abdominal Exam: Distended, Soft, Tenderness, Normal Bowel Sounds. absent: Firm, Guarding, Rigid, Rebound - Extremities Exam Extremities Exam: Normal Inspection. absent: Calf Tenderness, Pedal Edema - Neurological Exam Neurological Exam: Alert, Awake, CN II-XII Intact, Oriented x3 - Psychiatric Exam Psychiatric exam: Normal Affect, Normal Mood - Skin Skin Exam: Dry, Intact, Normal Color Assessment and Plan (1) Diabetic ketoacidosis Assessment & Plan: -3L IV NS given -CMP reviewed today, anion gap has closed -BS under better control with values in ~250s (>450 on admission) -Potassium WNL -c/w with insulin lispro coverage scale -monitor BS Status: Resolved (2) Leukocytosis Assessment & Plan: -likely secondary to demargination from DKA -monitoring WBC, currently trending downwards, today 17.2 -pt afebrile, vitals stable -c/w monitoring CBC daily -CXR negative for active disease -f/u blood and urine cultures. 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 Status: Chronic (5) Diabetes mellitus with hyperglycemia, with long-term current use of insulin Assessment & Plan: -uncontrolled -strict BS monitoring -Insulin Lispro coverage scale -low carb diet once tolerated Status: Chronic (6) Hyperlipidemia Assessment & Plan: c/w with home meds once diet is tolerated Status: Chronic (7) Hypertension Assessment & Plan: -uncontrolled -labetalol 20mg given, better control achieved however still elevated -resume home medications once tolerating PO diet. Status: Chronic (8) Prophylactic measure Assessment & Plan: Lovenox 40mg SC QD Pepcid 20mg QD Status: Acute <KittyRiki Hendrix - Last Filed: 05/10/17 16:13> Objective - Vital Signs/Intake and Output Vital Signs (last 24 hours): Temp Pulse Resp BP Pulse Ox 98.2 F 78 20 145/83 97 05/10/17 15:38 05/10/17 15:38 05/10/17 15:38 05/10/17 15:38 05/10/17 15:38 Intake and Output: 05/10/17 05/10/17 06:59 18:59 Intake Total 1850 Output Total 1500 Balance 350 - Medications Medications: Current Medications Atorvastatin Calcium (Lipitor) 10 mg PO HS [facility] Last Admin: 05/09/17 22:05 Dose: 10 mg Dextrose (Dextrose 50% Inj) 0 ml IV STAT PRN; Protocol PRN Reason: Hyglycemia Protocol Dextrose (Glutose 15) 0 gm PO ONCE PRN; Protocol PRN Reason: Hypoglycemia Protocol Dextrose (Dextrose 50% Inj) 0 ml IV STAT PRN; Protocol PRN Reason: Hyglycemia Protocol Dextrose (Glutose 15) 0 gm PO ONCE PRN; Protocol PRN Reason: Hypoglycemia Protocol Enoxaparin Sodium (Lovenox) 40 mg SC DAILY@2100 [facility] PRN Reason: Protocol Last Admin: 05/09/17 20:01 Dose: 40 mg Famotidine (Pepcid) 20 mg IVP Q12 [facility] Last Admin: 05/10/17 09:22 Dose: 20 mg Gabapentin (Neurontin) 300 mg PO TID [facility] Last Admin: 05/10/17 13:44 Dose: 300 mg Glucagon (Glucagen Diagnostic Kit) 0 mg IM STAT PRN; Protocol PRN Reason: Hypoglycemia Protocol Glucagon (Glucagen Diagnostic Kit) 0 mg IM STAT PRN; Protocol PRN Reason: Hypoglycemia Protocol Hydromorphone HCl (Dilaudid) 1 mg IVP Q4 PRN PRN Reason: Pain, severe (8-10) Last Admin: 05/10/17 13:41 Dose: 1 mg Sodium Chloride (Sodium Chloride 0.9%) 1,000 mls @ 999 mls/hr IV .Q1H1M [facility] Last Admin: 05/09/17 09:59 Dose: 999 mls/hr Vancomycin HCl 1 gm/ Sodium (Chloride) 250 mls @ 166.667 mls/hr IVPB DAILY [facility] Last Admin: 05/10/17 09:18 Dose: 166.667 mls/hr Piperacillin Sod/Tazobactam (Sod 2.25 gm/ Sodium Chloride) 100 mls @ 100 mls/ hr IVPB Q12 [facility] Last Admin: 05/10/17 09:12 Dose: 100 mls/hr Potassium Chloride/Dextrose/Sod Cl (Potassium Chl 20 Meq In D5-1/2ns) 1,000 mls @ 148.515 mls/hr IV .Q6H44M [facility] Stop: 05/10/17 21:09 Last Admin: 05/10/17 06:57 Dose: 148.515 mls/hr Insulin Human Lispro (Humalog) 0 units SC ACCU-CHECK [facility] PRN Reason: Protocol Last Admin: 05/10/17 13:43 Dose: 4 units Ketorolac Tromethamine (Toradol) 15 mg IVP Q6 PRN PRN Reason: Pain, moderate (4-7) Lisinopril (Zestril) 10 mg PO HS [facility] Last Admin: 05/09/17 22:05 Dose: 10 mg Metoclopramide HCl (Reglan) 10 mg IVP Q8 [facility] Last Admin: 05/10/17 09:19 Dose: 10 mg Metoprolol Tartrate (Lopressor) 25 mg PO BID [facility] Last Admin: 05/10/17 09:20 Dose: 25 mg Ondansetron HCl (Zofran Inj) 4 mg IVP Q6 PRN PRN Reason: Nausea/Vomiting Last Admin: 05/09/17 10:00 Dose: 4 mg - Labs Labs: 05/10/17 05:20 05/10/17 05:20
[2017-05-10] MEDS: Enoxaparin 40 mg Syringe SC SCH (21:59)
[2017-05-11 05:34] LABS: HEMATOCRIT 41.5 % (35.0-51.0); MEAN CELL VOLUME 81.8 fl (80.0-94.0); MEAN CORPUSCULAR HEMOGLOBIN 26.3 pg (27.0-31.0); MEAN CORPUSCULAR HGB CONC 32.2 g/dL (33.0-37.0); RED CELL DISTRIBUTION WIDTH 15.4 % (11.5-14.5); WHITE BLOOD COUNT 11.9 K/uL (4.8-10.8)
[2017-05-11 05:48] LABS: ALB/GLOB RATIO 1.2 (1.0-2.1); ALKALINE PHOSPHATASE 45 U/L (38-126); ALT/SGPT 25 U/L (21-72); AST/SGOT 27 U/L (17-59); BILIRUBIN,TOTAL 0.8 mg/dl (0.2-1.3); BLOOD UREA NITROGEN 12 mg/dl (9-20); CALCIUM 8.7 mg/dL (8.4-10.2); CARBON DIOXIDE 24 mmol/L (22-30); CHLORIDE 99 mmol/L (98-107); GFR AFRICAN-AMERICAN > 60; GLUCOSE,RANDOM 272 mg/dL (75-110); SODIUM 135 mmol/l (132-148); TOTAL PROTEIN 6.6 G/DL (6.3-8.2)
[2017-05-11 05:50] LABS: POTASSIUM 4.8 MMOL/L (3.6-5.0)
[2017-05-11] MEDS: Insulin Lispro (humaLOG) 100 Units/ml Inj SC SCH ×4 (06:42→22:13)
--- NOTE | 2017-05-11 08:44 | CP.PCM.PN ---
<Chinmay El - Last Filed: 05/11/17 08:50> Subjective - Date & Time of Evaluation Date of Evaluation: 05/11/17 Time of Evaluation: 08:43 - Subjective Subjective: pt seen and examined at bedside this morning with attending. No acute events overnight. Afebrile. Labs/vitals reviewed. Pain controlled with 1mg Dilaudid Q4H. Tolerated PO intake of FLD w/o issue. Denies fever/chills, headaches, changes in vision, CP/SOB/Palpitations, N/V/D/C, urinary symptoms. Objective - Vital Signs/Intake and Output Vital Signs (last 24 hours): Temp Pulse Resp BP Pulse Ox 98 F 75 20 125/67 94 L 05/11/17 08:00 05/11/17 08:00 05/11/17 08:00 05/11/17 08:00 05/11/17 08:00 Intake and Output: 05/11/17 05/11/17 06:59 18:59 Intake Total 400 Balance 400 - Medications Medications: Current Medications Atorvastatin Calcium (Lipitor) 10 mg PO HS [facility] Last Admin: 05/10/17 21:59 Dose: 10 mg Dextrose (Dextrose 50% Inj) 0 ml IV STAT PRN; Protocol PRN Reason: Hyglycemia Protocol Dextrose (Glutose 15) 0 gm PO ONCE PRN; Protocol PRN Reason: Hypoglycemia Protocol Dextrose (Dextrose 50% Inj) 0 ml IV STAT PRN; Protocol PRN Reason: Hyglycemia Protocol Dextrose (Glutose 15) 0 gm PO ONCE PRN; Protocol PRN Reason: Hypoglycemia Protocol Enoxaparin Sodium (Lovenox) 40 mg SC DAILY@2100 [facility] PRN Reason: Protocol Last Admin: 05/10/17 21:59 Dose: 40 mg Famotidine (Pepcid) 20 mg IVP Q12 [facility] Last Admin: 05/10/17 21:58 Dose: 20 mg Gabapentin (Neurontin) 300 mg PO TID [facility] Last Admin: 05/10/17 18:53 Dose: 300 mg Glucagon (Glucagen Diagnostic Kit) 0 mg IM STAT PRN; Protocol PRN Reason: Hypoglycemia Protocol Glucagon (Glucagen Diagnostic Kit) 0 mg IM STAT PRN; Protocol PRN Reason: Hypoglycemia Protocol Hydromorphone HCl (Dilaudid) 1 mg IVP Q4 PRN PRN Reason: Pain, severe (8-10) Last Admin: 05/11/17 04:55 Dose: 1 mg Sodium Chloride (Sodium Chloride 0.9%) 1,000 mls @ 999 mls/hr IV .Q1H1M [facility] Last Admin: 05/09/17 09:59 Dose: 999 mls/hr Vancomycin HCl 1 gm/ Sodium (Chloride) 250 mls @ 166.667 mls/hr IVPB DAILY [facility] Last Admin: 05/10/17 09:18 Dose: 166.667 mls/hr Piperacillin Sod/Tazobactam (Sod 2.25 gm/ Sodium Chloride) 100 mls @ 100 mls/ hr IVPB Q12 [facility] Last Admin: 05/10/17 21:58 Dose: 100 mls/hr Insulin Human Lispro (Humalog) 0 units SC ACCU-CHECK [facility] PRN Reason: Protocol Last Admin: 05/11/17 06:42 Dose: 4 units Ketorolac Tromethamine (Toradol) 15 mg IVP Q6 PRN PRN Reason: Pain, moderate (4-7) Lisinopril (Zestril) 10 mg PO HS [facility] Last Admin: 05/10/17 21:58 Dose: 10 mg Metoclopramide HCl (Reglan) 10 mg IVP Q8 [facility] Last Admin: 05/11/17 00:56 Dose: 10 mg Metoprolol Tartrate (Lopressor) 25 mg PO BID [facility] Last Admin: 05/10/17 18:52 Dose: 25 mg Ondansetron HCl (Zofran Inj) 4 mg IVP Q6 PRN PRN Reason: Nausea/Vomiting Last Admin: 05/09/17 10:00 Dose: 4 mg - Labs Labs: 05/11/17 04:30 05/11/17 04:30 - Constitutional Appears: Non-toxic, No Acute Distress - Head Exam Head Exam: ATRAUMATIC - Eye Exam Eye Exam: EOMI Pupil Exam: PERRL - ENT Exam ENT Exam: Mucous Membranes Moist - Respiratory Exam Respiratory Exam: Clear to Ausculation Bilateral, NORMAL BREATHING PATTERN. absent: Rales, Rhonchi, Wheezes - Cardiovascular Exam Cardiovascular Exam: REGULAR RHYTHM, RRR, +S1, +S2. absent: JVD, Rubs - GI/Abdominal Exam GI & Abdominal Exam: Distended (distention secondary to truncal obesity), Guarding (voluntary guarding), Soft, Normal Bowel Sounds. absent: Firm, Rebound - Extremities Exam Extremities Exam: Normal Inspection. absent: Calf Tenderness, Pedal Edema, Tenderness - Neurological Exam Neurological Exam: Alert, Awake, CN II-XII Intact, Oriented x3 Assessment and Plan (1) Diabetic ketoacidosis Assessment & Plan: -3L IV NS given -CMP reviewed today, anion gap has closed -BS under better control with values in ~250s (>450 on admission) -Potassium WNL -c/w with insulin lispro coverage scale -monitor BS Status: Resolved (2) Leukocytosis Assessment & Plan: -likely secondary to demargination from DKA -monitoring WBC, currently trending downwards, today 11.2 -pt afebrile, vitals stable -c/w monitoring CBC daily -CXR negative for active disease -f/u blood and urine cultures. 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 Status: Chronic (5) Diabetes mellitus with hyperglycemia, with long-term current use of insulin Assessment & Plan: -uncontrolled -strict BS monitoring -Insulin Lispro coverage scale -low carb diet once tolerated Status: Chronic (6) Hyperlipidemia Assessment & Plan: c/w with home meds once diet is tolerated Status: Chronic (7) Hypertension Assessment & Plan: -uncontrolled -labetalol 20mg given, better control achieved however still elevated -resume home medications once tolerating PO diet. Status: Chronic (8) Prophylactic measure Assessment & Plan: Lovenox 40mg SC QD Pepcid 20mg QD Status: Acute <Riki Tang - Last Filed: 05/13/17 06:44> Objective - Vital Signs/Intake and Output Vital Signs (last 24 hours): Temp Pulse Resp BP Pulse Ox 98.6 F 76 20 121/69 95 05/13/17 04:59 05/13/17 04:59 05/13/17 04:59 05/13/17 04:59 05/13/17 04:59 Intake and Output: 05/12/17 05/13/17 18:59 06:59 Intake Total 950 Balance 950 - Medications Medications: Current Medications Atorvastatin Calcium (Lipitor) 10 mg PO HS [facility] Last Admin: 05/12/17 21:46 Dose: 10 mg Dextrose (Dextrose 50% Inj) 0 ml IV STAT PRN; Protocol PRN Reason: Hyglycemia Protocol Dextrose (Glutose 15) 0 gm PO ONCE PRN; Protocol PRN Reason: Hypoglycemia Protocol Dextrose (Dextrose 50% Inj) 0 ml IV STAT PRN; Protocol PRN Reason: Hyglycemia Protocol Dextrose (Glutose 15) 0 gm PO ONCE PRN; Protocol PRN Reason: Hypoglycemia Protocol Famotidine (Pepcid) 20 mg IVP Q12 [facility] Last Admin: 05/12/17 21:43 Dose: 20 mg Gabapentin (Neurontin) 300 mg PO TID [facility] Last Admin: 05/12/17 16:41 Dose: 300 mg Glucagon (Glucagen Diagnostic Kit) 0 mg IM STAT PRN; Protocol PRN Reason: Hypoglycemia Protocol Glucagon (Glucagen Diagnostic Kit) 0 mg IM STAT PRN; Protocol PRN Reason: Hypoglycemia Protocol Hydromorphone HCl (Dilaudid) 1 mg IVP Q4 PRN PRN Reason: Pain, severe (8-10) Last Admin: 05/13/17 00:39 Dose: 1 mg Vancomycin HCl 1 gm/ Sodium (Chloride) 250 mls @ 166.667 mls/hr IVPB DAILY [facility] Last Admin: 05/12/17 09:02 Dose: 166.667 mls/hr Piperacillin Sod/Tazobactam (Sod 2.25 gm/ Sodium Chloride) 100 mls @ 100 mls/ hr IVPB Q12 [facility] Last Admin: 05/12/17 21:41 Dose: 100 mls/hr Insulin Human Lispro (Humalog) 0 units SC ACCU-CHECK [facility] PRN Reason: Protocol Last Admin: 05/13/17 06:36 Dose: 3 units Ketorolac Tromethamine (Toradol) 15 mg IVP Q6 PRN PRN Reason: Pain, moderate (4-7) Lisinopril (Zestril) 10 mg PO HS [facility] Last Admin: 05/12/17 21:45 Dose: 10 mg Metoclopramide HCl (Reglan) 10 mg IVP Q8 [facility] Last Admin: 05/13/17 00:17 Dose: 10 mg Metoprolol Tartrate (Lopressor) 25 mg PO BID [facility] Last Admin: 05/12/17 16:42 Dose: 25 mg Ondansetron HCl (Zofran Inj) 4 mg IVP Q6 PRN PRN Reason: Nausea/Vomiting Last Admin: 05/09/17 10:00 Dose: 4 mg - Labs Labs: 05/12/17 05:00 05/12/17 05:00 Attending/Attestation - Attestation I have personally seen and examined this patient.: Yes I have fully participated in the care of the patient.: Yes I have reviewed all pertinent clinical information, including history, physical exam and plan: Yes
[2017-05-11] MEDS: Enoxaparin 40 mg Syringe SC SCH (21:14)
[2017-05-12 05:50] LABS: HEMATOCRIT 41.9 % (35.0-51.0); MEAN CELL VOLUME 81.4 fl (80.0-94.0); MEAN CORPUSCULAR HEMOGLOBIN 26.4 pg (27.0-31.0); MEAN CORPUSCULAR HGB CONC 32.4 g/dL (33.0-37.0); RED CELL DISTRIBUTION WIDTH 15.4 % (11.5-14.5); WHITE BLOOD COUNT 12.3 K/uL (4.8-10.8)
[2017-05-12 06:34] LABS: ALB/GLOB RATIO 1.2 (1.0-2.1); ALKALINE PHOSPHATASE 59 U/L (38-126); ALT/SGPT 26 U/L (21-72); AST/SGOT 25 U/L (17-59); BILIRUBIN,TOTAL 0.4 mg/dl (0.2-1.3); BLOOD UREA NITROGEN 11 mg/dl (9-20); CARBON DIOXIDE 27 mmol/L (22-30); CHLORIDE 98 mmol/L (98-107); GFR AFRICAN-AMERICAN > 60; GLUCOSE,RANDOM 307 mg/dL (75-110); POTASSIUM 3.9 MMOL/L (3.6-5.0); SODIUM 136 mmol/l (132-148); TOTAL PROTEIN 6.5 G/DL (6.3-8.2)
--- NOTE | 2017-05-12 08:41 | CP.PCM.PN ---
<Chinmay El - Last Filed: 05/12/17 08:42> Subjective - Date & Time of Evaluation Date of Evaluation: 05/12/17 Time of Evaluation: 08:37 - Subjective Subjective: pt seen and examined at bedside this morning with attending. No acute events overnight. Afebrile. Lying in bed comfortably, NAD. Pain controlled with 1mg Dilaudid Q4H. Tolerated advancement of diet w/o issue. No new complaints. Denies fever, chills headaches, changes in vision, CP/SOB/NAJERA/palpitations, N/V/ D, urinary symptoms, numbness/tingling. Objective - Vital Signs/Intake and Output Vital Signs (last 24 hours): Temp Pulse Resp BP Pulse Ox 98.4 F 81 18 107/70 95 05/12/17 05:04 05/12/17 05:04 05/12/17 05:04 05/12/17 05:04 05/12/17 05:04 - Medications Medications: Current Medications Atorvastatin Calcium (Lipitor) 10 mg PO HS [facility] Last Admin: 05/11/17 21:15 Dose: 10 mg Dextrose (Dextrose 50% Inj) 0 ml IV STAT PRN; Protocol PRN Reason: Hyglycemia Protocol Dextrose (Glutose 15) 0 gm PO ONCE PRN; Protocol PRN Reason: Hypoglycemia Protocol Dextrose (Dextrose 50% Inj) 0 ml IV STAT PRN; Protocol PRN Reason: Hyglycemia Protocol Dextrose (Glutose 15) 0 gm PO ONCE PRN; Protocol PRN Reason: Hypoglycemia Protocol Enoxaparin Sodium (Lovenox) 40 mg SC DAILY@2100 [facility] PRN Reason: Protocol Last Admin: 05/11/17 21:14 Dose: 40 mg Famotidine (Pepcid) 20 mg IVP Q12 [facility] Last Admin: 05/11/17 21:19 Dose: 20 mg Gabapentin (Neurontin) 300 mg PO TID [facility] Last Admin: 05/11/17 16:10 Dose: 300 mg Glucagon (Glucagen Diagnostic Kit) 0 mg IM STAT PRN; Protocol PRN Reason: Hypoglycemia Protocol Glucagon (Glucagen Diagnostic Kit) 0 mg IM STAT PRN; Protocol PRN Reason: Hypoglycemia Protocol Hydromorphone HCl (Dilaudid) 1 mg IVP Q4 PRN PRN Reason: Pain, severe (8-10) Last Admin: 05/12/17 06:41 Dose: 1 mg Vancomycin HCl 1 gm/ Sodium (Chloride) 250 mls @ 166.667 mls/hr IVPB DAILY [facility] Last Admin: 05/11/17 09:02 Dose: 166.667 mls/hr Piperacillin Sod/Tazobactam (Sod 2.25 gm/ Sodium Chloride) 100 mls @ 100 mls/ hr IVPB Q12 [facility] Last Admin: 05/11/17 21:13 Dose: 100 mls/hr Insulin Human Lispro (Humalog) 0 units SC ACCU-CHECK [facility] PRN Reason: Protocol Last Admin: 05/11/17 22:13 Dose: 2 units Ketorolac Tromethamine (Toradol) 15 mg IVP Q6 PRN PRN Reason: Pain, moderate (4-7) Lisinopril (Zestril) 10 mg PO HS [facility] Last Admin: 05/11/17 21:16 Dose: 10 mg Metoclopramide HCl (Reglan) 10 mg IVP Q8 [facility] Last Admin: 05/12/17 00:40 Dose: 10 mg Metoprolol Tartrate (Lopressor) 25 mg PO BID [facility] Last Admin: 05/11/17 17:20 Dose: 25 mg Ondansetron HCl (Zofran Inj) 4 mg IVP Q6 PRN PRN Reason: Nausea/Vomiting Last Admin: 05/09/17 10:00 Dose: 4 mg - Labs Labs: 05/12/17 05:00 05/12/17 05:00 - Constitutional Appears: Non-toxic, No Acute Distress - Eye Exam Eye Exam: EOMI Pupil Exam: PERRL - ENT Exam ENT Exam: Mucous Membranes Moist - Respiratory Exam Respiratory Exam: Clear to Ausculation Bilateral, NORMAL BREATHING PATTERN. absent: Rales, Rhonchi, Wheezes - Cardiovascular Exam Cardiovascular Exam: REGULAR RHYTHM, RRR, +S1, +S2. absent: Diastolic murmur, JVD, Rubs, Murmur - GI/Abdominal Exam GI & Abdominal Exam: Soft, Normal Bowel Sounds. absent: Distended, Firm, Guarding, Rigid, Tenderness, Rebound - Extremities Exam Extremities Exam: Full ROM, Normal Capillary Refill, Normal Inspection. absent : Calf Tenderness, Pedal Edema, Tenderness - Neurological Exam Neurological Exam: Alert, Awake, CN II-XII Intact, Oriented x3 - Psychiatric Exam Psychiatric exam: Normal Affect, Normal Mood Assessment and Plan (1) Diabetic ketoacidosis Assessment & Plan: -3L IV NS given -CMP reviewed today, anion gap remained closed -BS under better control with values in ~200-320s (>450 on admission) -Potassium WNL -c/w with insulin lispro coverage scale -monitor BS Status: Resolved (2) Leukocytosis Assessment & Plan: -likely secondary to demargination from DKA -monitoring WBC, 12.3 on 05/12 -pt afebrile, vitals stable -c/w monitoring CBC daily -CXR negative for active disease -f/u blood cultures -urine culture negative -IV Vancomycin and Zosyn for empiric coverage as pt has history of multiple hospital admissions Status: Acute (3) Intractable abdominal pain Assessment & Plan: -secondary to Diabetic gastroparesis -pain well controlled with Dilaudid 1mg Q4H -vitals stable, no episodes of emesis -soft diet tolerated, will continue to advance -IV Reglan 10mg BID -pain control with 1mg Dilaudid Q4H Status: Chronic (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 -Reglan 10mg IV TID -advance diet as tolerated -Strict BS control Status: Chronic (5) Diabetes mellitus with hyperglycemia, with long-term current use of insulin Assessment & Plan: -uncontrolled -strict BS monitoring -Insulin Lispro coverage scale -low carb diet once tolerated Status: Chronic (6) Hyperlipidemia Assessment & Plan: c/w home meds Status: Chronic (7) Hypertension Assessment & Plan: -better control has been achieved during stay -c/w home medications as ordered Status: Chronic (8) Prophylactic measure Assessment & Plan: Lovenox 40mg SC QD Pepcid 20mg QD Status: Acute <Quincy Mcdonald - Last Filed: 05/14/17 06:54> Objective - Vital Signs/Intake and Output Vital Signs (last 24 hours): Temp Pulse Resp BP Pulse Ox 98.7 F 71 18 128/74 98 05/13/17 12:16 05/13/17 12:16 05/13/17 12:16 05/13/17 12:16 05/13/17 12:16 - Labs Labs: 05/12/17 05:00 05/12/17 05:00 Attending/Attestation - Attestation I have personally seen and examined this patient.: Yes I have fully participated in the care of the patient.: Yes I have reviewed all pertinent clinical information, including history, physical exam and plan: Yes
[2017-05-12] MEDS: Insulin Lispro (humaLOG) 100 Units/ml Inj SC SCH ×4 (08:59→22:01)
[2017-05-12] MEDS: Enoxaparin 40 mg Syringe SC SCH (21:44)
[2017-05-13] MEDS: Insulin Lispro (humaLOG) 100 Units/ml Inj SC SCH ×2 (06:36→12:18)
[2017-05-13 08:03] VITALS: RESP 18; O2SAT 98
[2017-05-13] MEDS ORDERED: INSULIN LISPRO SC SCH (11:30)
[2017-05-13 12:17] VITALS: BP 128/74; PULSE 71; TEMP 98.7
[2017-05-13] MEDS ORDERED: GlipiZIDE 10 mg SR Tab PO SCH (17:00)
[2017-05-13] MEDS ORDERED: Insulin Detemir 100 Units/ml Inj SC SCH (22:00)
== END 2017-05-13 14:30 | disposition home or self-care (01) | DRG 74 ==
LOC: H.ER 23:57 → H.ERHOLD 05-09 05:21 → H.TEL 05-09 07:27
PROVIDERS: ADMIT Family Medicine; ATTEND Family Medicine
DX: E11.43 Type 2 diabetes mellitus with diabetic autonomic (poly)neuropathy (principal); E87.5 Hyperkalemia; I10 Essential (primary) hypertension; E11.10 Type 2 diabetes mellitus with ketoacidosis without coma; K31.84 Gastroparesis; Z79.4 Long term (current) use of insulin; Z91.041 Radiographic dye allergy status; E78.5 Hyperlipidemia, unspecified; K44.9 Diaphragmatic hernia without obstruction or gangrene; E78.00 Pure hypercholesterolemia, unspecified; E86.0 Dehydration; G89.29 Other chronic pain; R00.0 Tachycardia, unspecified

== ENCOUNTER 2017-07-24 12:51 | Inpatient (IN) | payer OTHER ==
[2017-07-24 12:51] VITALS: BMI 34.0
[2017-07-24] MEDS ORDERED: Sodium Chloride 0.9% 1,000 ML IV STA (13:10)
[2017-07-24 14:17] LABS: RBC URINE 6 /hpf (0-3); URINE BILIRUBIN NEGATIVE (NEGATIVE); URINE BLOOD SMALL (NEGATIVE); URINE COLOR STRAW (YELLOW); URINE GLUCOSE (UA) >=500 mg/dL (Normal); URINE KETONE 80 mg/dL (NEGATIVE); URINE LEUKOCYTE ESTERASE NEG Leu/uL (Negative); URINE PROTEIN 100 mg/dL (NEGATIVE); URINE UROBILINOGEN 0.2-1.0 mg/dL (0.2-1.0); WBC URINE < 1 /hpf (0-5)
[2017-07-24 14:24] LABS: BASO # 0.1 K/uL (0.0-0.2); BASO % 0.6 % (0.0-2.0); EOS % 0.1 % (0.0-4.0); HEMATOCRIT 41.6 % (35.0-51.0); LYMPH # 1.1 K/uL (1.0-4.3); LYMPH % 5.8 % (20.0-40.0); MEAN CELL VOLUME 79.5 fl (80.0-94.0); MEAN CORPUSCULAR HEMOGLOBIN 26.2 pg (27.0-31.0); MEAN PLATELET VOLUME 9.3 fl (7.2-11.7); MONO # 0.5 K/uL (0.0-0.8); MONO % 2.7 % (0.0-10.0); NEUT # 16.8 K/uL (1.8-7.0); NEUT % 90.8 % (50.0-75.0); NRBC % 0.1 % (0.0-0.0); PLATELET COUNT 250 K/uL (130-400); RED CELL DISTRIBUTION WIDTH 15.4 % (11.5-14.5)
[2017-07-24 14:26] LABS: WHITE BLOOD COUNT 18.6 K/uL (4.8-10.8)
[2017-07-24] MEDS ORDERED: Insulin Regular 100 units/ml IVP ONE (14:28)
[2017-07-24 14:32] LABS: VENOUS BLOOD GAS BASE EXCESS 1.8 mmol/L (0.0-2.0); VENOUS BLOOD GAS PCO2 29 mmHg (40-60); VENOUS BLOOD PH 7.52 (7.32-7.43)
[2017-07-24] MEDS ORDERED: Insulin Regular 100 units/ml ONE ×2 (14:40→16:33)
[2017-07-24 14:47] LABS: ALB/GLOB RATIO 1.3 (1.0-2.1); ALCOHOL SERUM < 10 mg/dl (0-10); ALKALINE PHOSPHATASE 61 U/L (38-126); ALT/SGPT 32 U/L (21-72); AST/SGOT 26 U/L (17-59); BILIRUBIN,TOTAL 0.9 mg/dl (0.2-1.3); BLOOD UREA NITROGEN 20 mg/dl (9-20); CALCIUM 9.4 mg/dL (8.4-10.2); CARBON DIOXIDE 20 mmol/L (22-30); CHLORIDE 95 mmol/L (98-107); GFR AFRICAN-AMERICAN > 60; POTASSIUM 4.7 MMOL/L (3.6-5.0); SODIUM 134 mmol/l (132-148); TOTAL PROTEIN 8.5 G/DL (6.3-8.2)
[2017-07-24 14:50] LABS: GLUCOSE,RANDOM 438 mg/dL (75-110)
--- NOTE | 2017-07-24 15:09 | ED PDOC ---
HPI: Abdomen Time Seen by Provider: 07/24/17 13:10 Chief Complaint (Nursing): Abdominal Pain Chief Complaint (Provider): abdominal pain History Per: Patient History/Exam Limitations: no limitations Onset/Duration Of Symptoms: Days (2) Current Symptoms Are (Timing): Still Present Location Of Pain/Discomfort: Diffuse, Epigastric Quality Of Discomfort: Sharp, Cramping Associated Symptoms: Nausea, Vomiting, Loss Of Appetite. 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 Past Medical History Reviewed: Historical Data, Nursing Documentation, Vital Signs Vital Signs: Last Vital Signs Temp 100 F H 07/24/17 12:52 Pulse 115 H 07/24/17 12:52 Resp 16 07/24/17 12:52 BP 192/86 H 07/24/17 12:52 Pulse Ox 98 07/24/17 12:52 - Medical History PMH: Diabetes, HTN, Hypercholesterolemia, Kidney Stones, Pancreatitis Denies: HIV, Chronic Kidney Disease, Sexually Transmitted Disease - Surgical History Surgical History: Cholecystectomy - Family History Family History: States: [place] (Father of heart attack) - Living Arrangements Living Arrangements: With Family - Social History Current smoker - smoking cessation education provided: No Alcohol: None - Home Medications Home Medications: Ambulatory Orders Medication Instructions Recorded Pioglitazone [Actos] 30 mg PO DAILY 08/14/16 Insulin Lispro [Humalog (Insulin 30 units SC TID 12/28/16 Lispro)] Atorvastatin [Lipitor] 10 mg PO DAILY 01/28/17 Famotidine [Pepcid] 20 mg PO BID 01/28/17 Lisinopril [Zestril] 10 mg PO HS 01/28/17 MetFORMIN [glucoPHAGE] 1,000 mg PO BID 01/28/17 Metoclopramide [Reglan] 10 mg PO Q8H 01/28/17 Metoprolol Tartrate [Lopressor] 25 mg PO BID 01/28/17 Gabapentin [Neurontin] 300 mg PO TID cap 01/31/17 amLODIPine [Norvasc] 10 mg PO DAILY 07/24/17 - Allergies Allergies/Adverse Reactions: Allergies Allergy/AdvReac Type Severity Reaction Status Date / Time iodine Allergy URTICARIA Verified 05/09/17 00:09 Review of Systems ROS Statement: Except As Marked, All Systems Reviewed And Found Negative Constitutional: Positive for: Weakness, Malaise. Negative for: Fever, Chills Respiratory: Negative for: Cough Gastrointestinal: Positive for: Nausea, Vomiting, Abdominal Pain. Negative for : Diarrhea Genitourinary Male: Positive for: Other (polyuria). Negative for: Dysuria, Frequency Musculoskeletal: Negative for: Neck Pain Skin: Negative for: Rash, Lesions, Jaundice Neurological: Positive for: Weakness, Headache, Dizziness. Negative for: Numbness Psych: Negative for: Anxiety Physical Exam - Reviewed Nursing Documentation Reviewed: Yes Vital Signs Reviewed: Yes - Physical Exam Appears: Positive for: Non-toxic, No Acute Distress Head Exam: Positive for: ATRAUMATIC, NORMAL INSPECTION, NORMOCEPHALIC Skin: Positive for: Normal Color, Warm, DRY Eye Exam: Positive for: EOMI, Normal appearance, PERRL ENT: Positive for: Normal ENT Inspection Neck: Positive for: Normal, Painless ROM Cardiovascular/Chest: Positive for: Tachycardia. Negative for: Irregularly Irregular Respiratory: Positive for: CNT, Normal Breath Sounds Gastrointestinal/Abdominal: Positive for: Bowel Sounds, Soft, Tenderness. Negative for: Distended, Guarding Back: Positive for: Normal Inspection Extremity: Positive for: Normal ROM Neurologic/Psych: Positive for: Alert, Oriented. Negative for: Motor/Sensory Deficits - Laboratory Results Result Diagrams: 07/24/17 14:15 07/24/17 14:15 - ECG O2 Sat by Pulse Oximetry: 98 Medical Decision Making Medical Decision Making: workup initiated for hyperglycemia/ vomiting w evidence of dehydration/ tachycardia Difficult IV access but obtained R hand 24g. Often requires PICC line in past, currently unavailable. Attempt by MD for IV access w US guidance R forearm 20g IV unsuccessful pt refused further attempts. labs reviewed, reveal marked hyperglycemia, elev lactate and elev WBC c/w prior presentations/ IVF and insulin, antiemetic initiated Admit Dr Smith, FP service Dr Duong aware [id number] Disposition - Clinical Impression Clinical Impression: Gastroparesis, Lactic acidosis, Hyperglycemia, Abdominal pain - Patient ED Disposition Is Patient to be Admitted: Yes Counseled Patient/Family Regarding: Studies Performed, Diagnosis - Disposition Disposition Time: 15:01 Condition: FAIR - Pt Status Changed To: Hospital Disposition Of: Inpatient - Admit Certification Admit to Inpatient:: After my assessment, the patient will require hospitalization for at least two midnights. This is because of the severity of symptoms shown, intensity of services needed, and/or the medical risk in this patient being treated as an outpatient. - POA Present On Arrival: Poor Glycemic Control
[2017-07-24 15:33] LABS: LARGE PLATELETS PRESENT; NEUTROPHIL 86 % (42-75); TOTAL CELLS COUNTED 100
[2017-07-24] MEDS ORDERED: Sodium Chloride 0.9% 1,000 ML IV SCH (16:00)
[2017-07-24] MEDS ORDERED: Insulin Lispro (humaLOG) 100 Units/ml Inj SC STA (16:06)
[2017-07-24] MEDS ORDERED: HYDROmorphone 0.5 mg/0.5 ml ISec ONE (16:43)
--- NOTE | 2017-07-24 18:01 | CP.PCM.HP ---
History of Present Illness - History of Present Illness History of Present Illness: 61 YO M w/ PMH of IDDM2, HTN, HLD, diabetic neuropathy and recurrent diabetic gastroparesis presented to the ER with abdominal pain and PO intolernce which started last night after he ate dinner. States it started with vomiting and the abdominal pain started afterwords and was 10/10. It worsened this morning and he was not able to keep anything down. denies fever, chills, chest pain, SOB or change in bowl movements. Patient states that he has been complient with his medication. He has been seeing a funeral prearrangement counselor at [facility]: Dr. Mason. States he take 55 units of levimir at bedtime and 30 units of insulin before every meal. The funeral prearrangement counselor has d/c his glimperide. PMH: uncontrolled DM w/ Gastroparesis, HTN, HLD, Diabetic neuropathy Allergies: IV contrast (hives) Meds: reviewed Social: hx of substance abuse ( however now clean), former smoker FHx: Mother-Breast Ca, Aunt-Leukemia, denies other Ca ED course: CBC: WBC: 18.6 CMP VBG: PH : 7.52, Lactate: 3.6 Lactic acid: 2.2 Blood and urine cultures Insulin 8 units Insulin Lispro 5 units 2 L bolus IV fluids Unable to get a PICC line Patient only has 24 harpreet on the periphery for access FULL CODE Present on Admission - Present on Admission Any Indicators Present on Admission: Yes History of Uncontrolled Diabetes: Yes Past Patient History - Infectious Disease Hx of Infectious Diseases: None - Tetanus Immunizations Tetanus Immunization: Unknown - Past Medical History & Family History Past Medical History?: Yes - Past Social History Alcohol: None - CARDIAC Hx Hypercholesterolemia: Yes Hx Hypertension: Yes - PULMONARY Hx Respiratory Disorders: No - NEUROLOGICAL Hx Neurological Disorder: No - HEENT Hx HEENT Problems: No - RENAL Hx Chronic Kidney Disease: No Hx Kidney Stones: Yes - ENDOCRINE/METABOLIC Hx Endocrine Disorders: Yes (DM) Hx Diabetes Mellitus Type 2: Yes Other/Comment: diabetic neuropathy - HEMATOLOGICAL/ONCOLOGICAL Hx Human Immunodeficiency Virus (HIV): No - INTEGUMENTARY Hx Dermatological Problems: No - MUSCULOSKELETAL/RHEUMATOLOGICAL Hx Falls: No - GASTROINTESTINAL Hx Pancreatitis: Yes - GENITOURINARY/GYNECOLOGICAL Hx Sexually Transmitted Disorders: No - PSYCHIATRIC Hx Psychophysiologic Disorder: Yes Hx Substance Use: Yes - SURGICAL HISTORY Hx Cholecystectomy: Yes - ANESTHESIA Hx Anesthesia: Yes Hx Anesthesia Reactions: No Hx Malignant Hyperthermia: No Meds Allergies/Adverse Reactions: Allergies Allergy/AdvReac Type Severity Reaction Status Date / Time iodine Allergy URTICARIA Verified 05/09/17 00:09 Physical Exam - Constitutional Appears: No Acute Distress - Head Exam Head Exam: NORMAL INSPECTION - Respiratory Exam Respiratory Exam: Clear to Auscultation Bilateral, NORMAL BREATHING PATTERN. absent: Rhonchi, Wheezes - Cardiovascular Exam Cardiovascular Exam: Tachycardia, +S1, +S2 - GI/Abdominal Exam GI & Abdominal Exam: Guarding, Soft Additional comments: periumbilcal tenderness - Extremities Exam Extremities exam: Positive for: normal inspection. Negative for: calf tenderness - Back Exam Back exam: NORMAL INSPECTION - Skin Skin Exam: Normal Color, Warm Results - Vital Signs Recent Vital Signs: Last Vital Signs Temp 98.3 F 07/24/17 16:01 Pulse 110 H 07/24/17 16:01 Resp 17 07/24/17 16:01 BP 154/70 H 07/24/17 16:01 Pulse Ox 98 07/24/17 15:19 - Labs Result Diagrams: 07/24/17 19:48 07/24/17 19:37 Labs: Laboratory Results - last 24 hr 07/24/17 07/24/17 07/24/17 13:10 14:05 14:05 WBC RBC Hgb Hct MCV MCH MCHC RDW Plt Count MPV Neut % (Auto) Lymph % (Auto) [place] % (Auto) Eos % (Auto) Baso % (Auto) Neut # Lymph # [place] # Eos # Baso # Neutrophils % (Manual) Band Neutrophils % Lymphocytes % (Manual) Monocytes % (Manual) Platelet Estimate Large Platelets Anisocytosis (manual) pO2 73 H VBG pH 7.52 H VBG pCO2 29 L VBG HCO3 26.2 VBG Total CO2 24.6 VBG O2 Sat (Calc) 98.2 H VBG Base Excess 1.8 VBG Potassium 4.5 Sodium 128.0 L Chloride 95.0 L Glucose 467 H* Lactate 3.6 H FiO2 21.0 Blood Gas Comments Vbg Crit Value Called To Livan rader r.n. Crit Value Called By Lala Crit Value Read Back Y Blood Gas Notified Time 1432 Potassium Carbon Dioxide Anion Gap BUN Creatinine Est GFR ( Amer) Est GFR (Non-Af Amer) POC Glucose (mg/dL) Random Glucose Lactic Acid Calcium Total Bilirubin AST ALT Alkaline Phosphatase Troponin I Total Protein Albumin Globulin Albumin/Globulin Ratio Venous Blood Potassium 4.5 Urine Color Straw Urine Clarity Clear Urine pH 6.0 Ur Specific [place] 1.026 Urine Protein 100 Urine Glucose (UA) >=500 Urine Ketones 80 Urine Blood Small Urine Nitrate Negative Urine Bilirubin Negative Urine Urobilinogen 0.2-1.0 Ur Leukocyte Esterase Neg Urine RBC (Auto) 6 H Urine Microscopic WBC < 1 Ur Squamous Epith Cells < 1 Urine Opiates Screen Negative Urine Methadone Screen Negative Ur Barbiturates Screen Negative Ur Phencyclidine Scrn Negative Ur Amphetamines Screen Negative U Benzodiazepines Scrn Negative U Oth Cocaine Metabols Negative U Cannabinoids Screen Negative Alcohol, Quantitative 07/24/17 07/24/17 07/24/17 14:15 14:15 14:26 WBC 18.6 H D RBC 5.23 Hgb 13.7 Hct 41.6 MCV 79.5 L MCH 26.2 L MCHC 33.0 RDW 15.4 H Plt Count 250 MPV 9.3 Neut % (Auto) 90.8 H Lymph % (Auto) 5.8 L [place] % (Auto) 2.7 Eos % (Auto) 0.1 Baso % (Auto) 0.6 Neut # 16.8 H Lymph # 1.1 [place] # 0.5 Eos # 0.0 Baso # 0.1 Neutrophils % (Manual) 86 H Band Neutrophils % 2 Lymphocytes % (Manual) 9 L Monocytes % (Manual) 3 Platelet Estimate Normal Large Platelets Present Anisocytosis (manual) Slight pO2 VBG pH VBG pCO2 VBG HCO3 VBG Total CO2 VBG O2 Sat (Calc) VBG Base Excess VBG Potassium Sodium 134 Chloride 95 L Glucose Lactate FiO2 Blood Gas Comments Crit Value Called To Crit Value Called By Crit Value Read Back Blood Gas Notified Time Potassium 4.7 Carbon Dioxide 20 L Anion Gap 24 H BUN 20 Creatinine 0.8 Est GFR ( Amer) > 60 Est GFR (Non-Af Amer) > 60 POC Glucose (mg/dL) 381 H Random Glucose 438 H* D Lactic Acid Calcium 9.4 Total Bilirubin 0.9 AST 26 ALT 32 Alkaline Phosphatase 61 Troponin I 0.0270 Total Protein 8.5 H Albumin 4.8 Globulin 3.7 Albumin/Globulin Ratio 1.3 Venous Blood Potassium Urine Color Urine Clarity Urine pH Ur Specific [place] Urine Protein Urine Glucose (UA) Urine Ketones Urine Blood Urine Nitrate Urine Bilirubin Urine Urobilinogen Ur Leukocyte Esterase Urine RBC (Auto) Urine Microscopic WBC Ur Squamous Epith Cells Urine Opiates Screen Urine Methadone Screen Ur Barbiturates Screen Ur Phencyclidine Scrn Ur Amphetamines Screen U Benzodiazepines Scrn U Oth Cocaine Metabols U Cannabinoids Screen Alcohol, Quantitative < 10 07/24/17 07/24/17 07/24/17 15:55 16:56 17:26 WBC RBC Hgb Hct MCV MCH MCHC RDW Plt Count MPV Neut % (Auto) Lymph % (Auto) [place] % (Auto) Eos % (Auto) Baso % (Auto) Neut # Lymph # [place] # Eos # Baso # Neutrophils % (Manual) Band Neutrophils % Lymphocytes % (Manual) Monocytes % (Manual) Platelet Estimate Large Platelets Anisocytosis (manual) pO2 VBG pH VBG pCO2 VBG HCO3 VBG Total CO2 VBG O2 Sat (Calc) VBG Base Excess VBG Potassium Sodium Chloride Glucose Lactate FiO2 Blood Gas Comments Crit Value Called To Crit Value Called By Crit Value Read Back Blood Gas Notified Time Potassium Carbon Dioxide Anion Gap BUN Creatinine Est GFR ( Amer) Est GFR (Non-Af Amer) POC Glucose (mg/dL) 302 H 305 H Random Glucose Lactic Acid 2.2 H Calcium Total Bilirubin AST ALT Alkaline Phosphatase Troponin I Total Protein Albumin Globulin Albumin/Globulin Ratio Venous Blood Potassium Urine Color Urine Clarity Urine pH Ur Specific [place] Urine Protein Urine Glucose (UA) Urine Ketones Urine Blood Urine Nitrate Urine Bilirubin Urine Urobilinogen Ur Leukocyte Esterase Urine RBC (Auto) Urine Microscopic WBC Ur Squamous Epith Cells Urine Opiates Screen Urine Methadone Screen Ur Barbiturates Screen Ur Phencyclidine Scrn Ur Amphetamines Screen U Benzodiazepines Scrn U Oth Cocaine Metabols U Cannabinoids Screen Alcohol, Quantitative Assessment & Plan - Assessment and Plan (Free Text) Assessment: 61 years old Male with PMHx of IDDM type 2, HTN, HLD, Diabetic neuropathy and Recurrent diabetic Gastroparesis being admitted for intractable abdominal pain, PO intolerance, and Hyperglycemia. 1) Intractable abdominal pain, nausea and vomiting -PO intolerence - Most likely secondary to patients gastroparesis - Afebrile -Leukocytosis noted, but pt has a h/o chronic leukocytosis of unknown etiology -NPO - Aggressive hydration: Bolus 4 L normal Saline - Monitor K+: Initially 4.7, repeat was 4.6 - F/U with repeat lactic acid - F/U with procalcitonin - Reglan 10 mg IV Q8 - Zofran 4mg Q6 PRN for N/V 2) Diabetes Mellitus type 2 with hyperglycemia -uncontrolled - S/P humulin R 8 units in ER - S/P Lispro 5 unis in ER - accucheck ACHS - 4 L bolus ordered. Accucheck after 4 L was 284. Repeat BMP showed normalized anion gap - Consider resuming home meds once PO is tolerated 3) Leukocytes -Leukocytosis noted, but pt has a h/o chronic leukocytosis of unknown etiology - SIRS positive: HR>90, WBC >12,000. No clear source of infection. Blood cultures and urine cultures ordered. Will start emperic Zosyn - Lactic acid: 2.2. Will follow up with lactic acid in AM 2) Sinus tachycardia - HR elevated - Most likely secondary to pain - F/U vital signs 3) HTN - Continue home meds 4) HLD - C/W Lipitor 10
--- NOTE | 2017-07-24 19:31 | CARD ---
APPROVED REPORT EKG Measurement Heart [id number] <Conclusion> Sinus tachycardia Possible Left atrial enlargement Borderline ECG
[2017-07-24 19:51] LABS: BASO # 0.2 K/uL (0.0-0.2); BASO % 0.9 % (0.0-2.0); HEMATOCRIT 41.1 % (35.0-51.0); LYMPH % 5.3 % (20.0-40.0); MEAN CELL VOLUME 80.7 fl (80.0-94.0); MEAN CORPUSCULAR HEMOGLOBIN 25.8 pg (27.0-31.0); MEAN PLATELET VOLUME 9.1 fl (7.2-11.7); MONO # 1.2 K/uL (0.0-0.8); MONO % 6.2 % (0.0-10.0); NEUT # 16.3 K/uL (1.8-7.0); NEUT % 87.6 % (50.0-75.0); RED CELL DISTRIBUTION WIDTH 15.3 % (11.5-14.5); WHITE BLOOD COUNT 18.6 K/uL (4.8-10.8)
[2017-07-24 20:01] LABS: ALB/GLOB RATIO 1.3 (1.0-2.1); ALKALINE PHOSPHATASE 55 U/L (38-126); ALT/SGPT 29 U/L (21-72); AST/SGOT 23 U/L (17-59); BILIRUBIN,TOTAL 0.6 mg/dl (0.2-1.3); BLOOD UREA NITROGEN 20 mg/dl (9-20); CALCIUM 8.8 mg/dL (8.4-10.2); CARBON DIOXIDE 26 mmol/L (22-30); CHLORIDE 97 mmol/L (98-107); GFR AFRICAN-AMERICAN > 60; GLUCOSE,RANDOM 338 mg/dL (75-110); MAGNESIUM 1.6 MG/DL (1.6-2.3); PHOSPHOROUS 4.1 mg/dl (2.5-4.5); POTASSIUM 4.6 MMOL/L (3.6-5.0); SODIUM 135 mmol/l (132-148); TOTAL PROTEIN 7.9 G/DL (6.3-8.2)
[2017-07-24] MEDS: Sodium Chloride 0.9% 1,000 ML IV SCH ×2 (20:54→20:55)
[2017-07-24] MEDS ORDERED: Glucagon Recombinant 1 mg Inj IM PRN (21:30)
[2017-07-24] MEDS ORDERED: Dextrose 50% SYRINGE Inj (50 ml) IV PRN (21:30)
[2017-07-24 21:43] LABS: CHOLESTEROL 168 mg/dL (0-199)
[2017-07-24] MEDS: Insulin Regular 100 units/ml SC SCH (22:50)
[2017-07-24] MEDS ORDERED: Potassium Chl 20 mEq in D5-NS 1,000 ML IV SCH (23:00)
[2017-07-25] MEDS: Piperacillin/Tazobact 3.375 GM in Sodium Chloride 0.9% 100 ML IVPB SCH ×3 (00:09→21:23)
[2017-07-25] MEDS: Insulin Regular 100 units/ml SC SCH ×4 (06:35→21:24)
[2017-07-25] MEDS: Enoxaparin 40 mg Syringe SC SCH (08:33)
[2017-07-25] MEDS: Sodium Chloride 0.9% 1,000 ML IV SCH ×4 (08:50→23:50)
[2017-07-25] MEDS ORDERED: Insulin Lispro (humaLOG) 100 Units/ml Inj SC SCH (09:00)
--- NOTE | 2017-07-25 10:05 | CP.PCM.PN ---
Subjective - Date & Time of Evaluation Date of Evaluation: 07/25/17 Time of Evaluation: 08:00 - Subjective Subjective: Seen and examined at bedside. Appears comfortable but complains of generalized, non localized abdominal pain. Better after dilaudid per patient. Denies current confusion, n/v/cp/diarrhea/sob/focal weakness. Objective - Vital Signs/Intake and Output Vital Signs (last 24 hours): Temp Pulse Resp BP Pulse Ox 98.7 F 105 H 18 176/87 H 98 07/25/17 07:48 07/25/17 08:31 07/25/17 07:48 07/25/17 08:31 07/25/17 07:48 Intake and Output: 07/25/17 07/25/17 06:59 18:59 Intake Total 3050 Balance 3050 - Medications Medications: Current Medications Amlodipine Besylate (Norvasc) 10 mg PO DAILY [facility] Atorvastatin Calcium (Lipitor) 10 mg PO HS [facility] Dextrose (Glutose 15) 0 gm PO ONCE PRN; Protocol PRN Reason: Hypoglycemia Protocol Enoxaparin Sodium (Lovenox) 40 mg SC DAILY SACHI PRN Reason: Protocol Last Admin: 07/25/17 08:33 Dose: 40 mg Famotidine (Pepcid) 20 mg PO BID [facility] Last Admin: 07/25/17 08:32 Dose: 20 mg Gabapentin (Neurontin) 300 mg PO TID [facility] Last Admin: 07/25/17 08:32 Dose: 300 mg Glucagon (Glucagen Diagnostic Kit) 0 mg IM STAT PRN; Protocol PRN Reason: Hypoglycemia Protocol Hydromorphone HCl (Dilaudid) 0.5 mg IVP Q4 PRN PRN Reason: Pain, moderate (4-7) Stop: 07/26/17 16:10 Last Admin: 07/25/17 08:29 Dose: 0.5 mg Piperacillin Sod/Tazobactam (Sod 3.375 gm/ Sodium Chloride) 100 mls @ 100 mls/ hr IVPB Q12 SACHI PRN Reason: Protocol Last Admin: 07/25/17 00:09 Dose: 100 mls/hr Potassium Chloride/Dextrose/Sod Cl (Potassium Chl 20 Meq In D5-Ns) 1,000 mls @ 125 mls/hr IV .Q8H [facility] Stop: 07/25/17 22:44 Last Admin: 07/25/17 00:09 Dose: 125 mls/hr Sodium Chloride (Sodium Chloride 0.9%) 1,000 mls @ 250 mls/hr IV .Q4H [facility] Stop: 07/26/17 08:45 Insulin Human Regular (Humulin R) 0 units SC ACHS SACHI PRN Reason: Protocol Last Admin: 07/25/17 06:35 Dose: 4 unit Lisinopril (Zestril) 10 mg PO HS [facility] Last Admin: 07/24/17 22:41 Dose: 10 mg Metoclopramide HCl (Reglan) 10 mg IVP Q8 [facility] Last Admin: 07/25/17 02:42 Dose: Not Given Metoprolol Tartrate (Lopressor) 25 mg PO BID [facility] Last Admin: 07/25/17 08:31 Dose: 25 mg Ondansetron HCl (Zofran Inj) 4 mg IVP Q6 PRN PRN Reason: Nausea/Vomiting - Labs Labs: 07/24/17 19:48 07/24/17 19:37 - Constitutional Appears: No Acute Distress - Head Exam Head Exam: ATRAUMATIC - Eye Exam Eye Exam: EOMI - ENT Exam ENT Exam: Mucous Membranes Moist - Respiratory Exam Respiratory Exam: Clear to Ausculation Bilateral - Cardiovascular Exam Cardiovascular Exam: +S1, +S2 - GI/Abdominal Exam GI & Abdominal Exam: Soft, Tenderness. absent: Rebound Additional comments: obese abdomen, distended, generalized mild tenderness, non localized to palpation, no rebound - Extremities Exam Extremities Exam: Full ROM - Neurological Exam Neurological Exam: Alert, Awake, Oriented x3 - Psychiatric Exam Psychiatric exam: Normal Affect, Normal Mood - Skin Skin Exam: Normal Color, Warm Assessment and Plan - Assessment and Plan (Free Text) Plan: 61 years old Male with PMHx of IDDM type 2, HTN, HLD, Diabetic neuropathy and Recurrent diabetic Gastroparesis for intractable abdominal pain, PO intolerance , and Hyperglycemia. 1) Intractable abdominal pain, nausea and vomiting -PO intolerence - Most likely secondary to patients gastroparesis - Afebrile -Leukocytosis noted, but pt has a h/o chronic leukocytosis of unknown etiology -NPO - s/p aggressive hydration: Bolus 4 L normal Saline - Monitor K+: Initially 4.7, repeat was 4.6 - F/U with repeat lactic acid - F/U with procalcitonin - Reglan 10 mg IV Q8 - Zofran 4mg Q6 PRN for N/V 2) Diabetes Mellitus type 2 with hyperglycemia -uncontrolled - S/P humulin R 8 units in ER and Lispro 5 unis in ER - accucheck ACHS - 4 L bolus given . Repeat BMP showed normalized anion gap - advance diet as tolerated 3) Leukocytes -Leukocytosis noted, but pt has a h/o chronic leukocytosis of unknown etiology - SIRS positive: HR>90, WBC >12,000. No clear source of infection. Blood cultures and urine cultures ordered. - Lactic acid: 2.2, repeat lactic acid WNL 2) Sinus tachycardia - HR elevated - Most likely secondary to pain - F/U vital signs 3) HTN - Continue home meds - added hydralazine 10 mg TID to control BP 4) HLD - C/W Lipitor 10
[2017-07-25] MEDS: Insulin Detemir 100 Units/ml Inj SC SCH (21:26)
[2017-07-26] MEDS: Sodium Chloride 0.9% 1,000 ML IV SCH ×2 (03:56→18:25)
[2017-07-26] MEDS: Insulin Regular 100 units/ml SC SCH ×4 (06:30→21:34)
[2017-07-26] MEDS: Piperacillin/Tazobact 3.375 GM in Sodium Chloride 0.9% 100 ML IVPB SCH (10:08)
[2017-07-26] MEDS: Enoxaparin 40 mg Syringe SC SCH (10:08)
--- NOTE | 2017-07-26 11:24 | CP.PCM.PN ---
<Rayshawn uDong - Last Filed: 07/26/17 12:48> Subjective - Date & Time of Evaluation Date of Evaluation: 07/26/17 Time of Evaluation: 07:30 - Subjective Subjective: 61 YO M seen at bedside with attending. Patient has been tolerating liquids. Still states he has abdominal pain but is controlled with medications. - Have discussed in detail with the patient the prognosis of his condition if he continues to have uncontrolled diabetes. - Denies chest pain, SOB, palpatations. Objective - Vital Signs/Intake and Output Vital Signs (last 24 hours): Temp Pulse Resp BP Pulse Ox 97.8 F 85 18 139/66 100 07/26/17 07:57 07/26/17 10:10 07/26/17 07:57 07/26/17 10:10 07/26/17 07:57 - Medications Medications: Current Medications Amlodipine Besylate (Norvasc) 10 mg PO DAILY [facility] Last Admin: 07/26/17 10:10 Dose: 10 mg Atorvastatin Calcium (Lipitor) 10 mg PO HS [facility] Last Admin: 07/25/17 21:22 Dose: 10 mg Dextrose (Glutose 15) 0 gm PO ONCE PRN; Protocol PRN Reason: Hypoglycemia Protocol Enoxaparin Sodium (Lovenox) 40 mg SC DAILY [facility] PRN Reason: Protocol Last Admin: 07/26/17 10:08 Dose: 40 mg Famotidine (Pepcid) 20 mg PO BID [facility] Last Admin: 07/26/17 10:11 Dose: 20 mg Gabapentin (Neurontin) 300 mg PO TID [facility] Last Admin: 07/26/17 10:10 Dose: 300 mg Glucagon (Glucagen Diagnostic Kit) 0 mg IM STAT PRN; Protocol PRN Reason: Hypoglycemia Protocol Hydralazine HCl (Apresoline) 10 mg PO TID [facility] Last Admin: 07/26/17 10:09 Dose: 10 mg Hydromorphone HCl (Dilaudid) 0.5 mg IVP Q4 PRN PRN Reason: Pain, moderate (4-7) Stop: 07/26/17 16:10 Last Admin: 07/26/17 10:17 Dose: 0.5 mg Piperacillin Sod/Tazobactam (Sod 3.375 gm/ Sodium Chloride) 100 mls @ 100 mls/ hr IVPB Q12 [facility] PRN Reason: Protocol Last Admin: 07/26/17 10:08 Dose: 100 mls/hr Insulin Detemir (Levemir) 55 units SC HS [facility] Last Admin: 07/25/17 21:26 Dose: 55 u Insulin Human Regular (Humulin R) 0 units SC ACHS [facility] PRN Reason: Protocol Last Admin: 07/26/17 06:30 Dose: 2 unit Lisinopril (Zestril) 10 mg PO HS [facility] Last Admin: 07/25/17 21:22 Dose: 10 mg Metoclopramide HCl (Reglan) 10 mg IVP Q8 [facility] Last Admin: 07/26/17 10:11 Dose: 10 mg Metoprolol Tartrate (Lopressor) 25 mg PO BID [facility] Last Admin: 07/26/17 10:09 Dose: 25 mg Ondansetron HCl (Zofran Inj) 4 mg IVP Q6 PRN PRN Reason: Nausea/Vomiting - Labs Labs: 07/24/17 19:48 07/24/17 19:37 - Constitutional Appears: No Acute Distress - Head Exam Head Exam: NORMAL INSPECTION - Eye Exam Eye Exam: Normal appearance - Respiratory Exam Respiratory Exam: Clear to Ausculation Bilateral, NORMAL BREATHING PATTERN. absent: Rhonchi, Wheezes - Cardiovascular Exam Cardiovascular Exam: REGULAR RHYTHM, +S1, +S2 - GI/Abdominal Exam GI & Abdominal Exam: Soft, Tenderness, Normal Bowel Sounds Additional comments: soft, obese, abdomen - Extremities Exam Extremities Exam: Full ROM, Normal Inspection - Neurological Exam Neurological Exam: Alert, Awake, Oriented x3 - Skin Skin Exam: Normal Color, Warm Assessment and Plan - Assessment and Plan (Free Text) Assessment: 61 years old Male with PMHx of IDDM type 2, HTN, HLD, Diabetic neuropathy and Recurrent diabetic Gastroparesis for intractable abdominal pain, PO intolerance , and Hyperglycemia. 1) Intractable abdominal pain, nausea and vomiting -PO intolerence - Most likely secondary to patients gastroparesis - Afebrile -Leukocytosis noted, but pt has a h/o chronic leukocytosis of unknown etiology -NPO - s/p aggressive hydration: Bolus 4 L normal Saline - Monitor K+: Initially 4.7, repeat was 4.4 - F/U with repeat lactic acid - F/U with procalcitonin - Reglan 10 mg IV Q8 - Zofran 4mg Q6 PRN for N/V 2) Gastroparesis Diabeticorum Multiple episodes in the past - Most likely cause of current clinical presentation - Advance diet as tolerated -Start Reglan 10 mg IV Q8h stanley -Zofran 4 mg IV Q6 PRN for N/V 3) Diabetes Mellitus type 2 with hyperglycemia -uncontrolled HBA1C of 10.1 on this admission - S/P humulin R 8 units in ER and Lispro 5 unis in ER - accucheck ACHS - 4 L bolus given . Repeat BMP showed normalized anion gap - Levimir 55 units SC HS - advance diet as tolerated 4) Leukocytosis most likely secondary to patients uncontrolled diabetes ( impaired glucose tolerence) . -Leukocytosis noted, but pt has a h/o chronic leukocytosis of unknown etiology - Blood cultures did not show any growth - Repeat lactic acid resolved. Afebrile - Will stop antibiotics and continue to monitor 5) HTN - Continue home meds - added hydralazine 10 mg TID to control BP - BP now is in 139/66 range 6) HLD - C/W Lipitor 10 <Riki Tang - Last Filed: 07/27/17 06:49> Objective - Vital Signs/Intake and Output Vital Signs (last 24 hours): Temp Pulse Resp BP Pulse Ox 99 F 69 18 122/63 96 07/27/17 05:00 07/27/17 05:00 07/27/17 05:00 07/27/17 05:00 07/27/17 05:00 Intake and Output: 07/26/17 07/27/17 18:59 06:59 Intake Total 1600 Balance 1600 - Medications Medications: Current Medications Amlodipine Besylate (Norvasc) 10 mg PO DAILY [facility] Last Admin: 07/26/17 10:10 Dose: 10 mg Atorvastatin Calcium (Lipitor) 10 mg PO HS [facility] Last Admin: 07/26/17 21:26 Dose: 10 mg Dextrose (Glutose 15) 0 gm PO ONCE PRN; Protocol PRN Reason: Hypoglycemia Protocol Enoxaparin Sodium (Lovenox) 40 mg SC DAILY [facility] PRN Reason: Protocol Last Admin: 07/26/17 10:08 Dose: 40 mg Famotidine (Pepcid) 20 mg PO BID [facility] Last Admin: 07/26/17 17:23 Dose: 20 mg Gabapentin (Neurontin) 300 mg PO TID [facility] Last Admin: 07/26/17 17:23 Dose: 300 mg Glucagon (Glucagen Diagnostic Kit) 0 mg IM STAT PRN; Protocol PRN Reason: Hypoglycemia Protocol Hydralazine HCl (Apresoline) 10 mg PO TID [facility] Last Admin: 07/26/17 17:22 Dose: 10 mg Hydromorphone HCl (Dilaudid) 2.5 mg PO Q4 PRN PRN Reason: Pain, moderate (4-7) Last Admin: 07/27/17 03:33 Dose: 2.5 mg Insulin Detemir (Levemir) [address] [facility] Last Admin: 07/26/17 22:30 Dose: 55 u Insulin Human Regular (Humulin R) [address] [facility] PRN Reason: Protocol Last Admin: 07/26/17 21:34 Dose: Not Given Lisinopril (Zestril) 10 mg PO HS [facility] Last Admin: 07/26/17 21:26 Dose: 10 mg Metoclopramide HCl (Reglan) 10 mg PO Q8 [facility] Metoprolol Tartrate (Lopressor) 25 mg PO BID [facility] Last Admin: 07/26/17 17:23 Dose: 25 mg Ondansetron HCl (Zofran Inj) 4 mg IVP Q6 PRN PRN Reason: Nausea/Vomiting - Labs Labs: 07/24/17 19:48 07/24/17 19:37 Attending/Attestation - Attestation I have personally seen and examined this patient.: Yes I have fully participated in the care of the patient.: Yes I have reviewed all pertinent clinical information, including history, physical exam and plan: Yes
[2017-07-26] MEDS: Insulin Detemir 100 Units/ml Inj SC SCH (22:30)
[2017-07-27 00:39] VITALS: RESP 18
[2017-07-27] MEDS ORDERED: Metoclopramide 10 mg/10 ml Cup PO ONE (03:37)
[2017-07-27 05:18] VITALS: O2SAT 96
[2017-07-27] MEDS: Insulin Regular 100 units/ml SC SCH (06:57)
[2017-07-27 07:47] VITALS: BP 126/67; PULSE 74; TEMP 98.8
--- NOTE | 2017-07-27 08:55 | CP.PCM.DIS ---
Provider - Provider Date of Admission: 07/24/17 15:10 Attending physician: Quincy Smith MD Time Spent in preparation of Discharge (in minutes): 30 Diagnosis - Discharge Diagnosis (1) Abdominal pain Status: Acute Priority: High (2) Hyperglycemia Status: Acute (3) Gastroparesis Status: Chronic Priority: High (4) Oral candidiasis Status: Acute Hospital Course - Lab Results Lab Results: Micro Results 07/25/17 11:13 Urine Urine Culture - Final No Growth (<1,000 CFU/ML) 07/24/17 15:31 Blood Blood Culture - Preliminary NO GROWTH AFTER 48 HOURS Most Recent Lab Values WBC 18.6 K/uL (4.8-10.8) H 07/24/17 19:48 RBC 5.09 Mil/uL (4.40-5.90) 07/24/17 19:48 Hgb 13.1 g/dL (12.0-18.0) 07/24/17 19:48 Hct 41.1 % (35.0-51.0) 07/24/17 19:48 MCV 80.7 fl (80.0-94.0) 07/24/17 19:48 MCH 25.8 pg (27.0-31.0) L 07/24/17 19:48 MCHC 32.0 g/dL (33.0-37.0) L 07/24/17 19:48 RDW 15.3 % (11.5-14.5) H 07/24/17 19:48 Plt Count 218 K/uL (130-400) 07/24/17 19:48 MPV 9.1 fl (7.2-11.7) 07/24/17 19:48 Neut % (Auto) 87.6 % (50.0-75.0) H 07/24/17 19:48 Lymph % (Auto) 5.3 % (20.0-40.0) L 07/24/17 19:48 Pender % (Auto) 6.2 % (0.0-10.0) 07/24/17 19:48 Eos % (Auto) 0.0 % (0.0-4.0) 07/24/17 19:48 Baso % (Auto) 0.9 % (0.0-2.0) 07/24/17 19:48 Neut # 16.3 K/uL (1.8-7.0) H 07/24/17 19:48 Lymph # 1.0 K/uL (1.0-4.3) 07/24/17 19:48 Pender # 1.2 K/uL (0.0-0.8) H 07/24/17 19:48 Eos # 0.0 K/uL (0.0-0.7) 07/24/17 19:48 Baso # 0.2 K/uL (0.0-0.2) 07/24/17 19:48 Neutrophils % (Manual) 86 % (42-75) H 07/24/17 14:15 Band Neutrophils % 2 % (0-2) 07/24/17 14:15 Lymphocytes % (Manual) 9 % (20-50) L 07/24/17 14:15 Monocytes % (Manual) 3 % (0-10) 07/24/17 14:15 Platelet Estimate Normal (NORMAL) 07/24/17 14:15 Large Platelets Present 07/24/17 14:15 Anisocytosis (manual) Slight 07/24/17 14:15 pO2 73 mm/Hg (30-55) H 07/24/17 13:10 VBG pH 7.52 (7.32-7.43) H 07/24/17 13:10 VBG pCO2 29 mmHg (40-60) L 07/24/17 13:10 VBG HCO3 26.2 mmol/L 07/24/17 13:10 VBG Total CO2 24.6 mmol/L (22-28) 07/24/17 13:10 VBG O2 Sat (Calc) 98.2 % (40-65) H 07/24/17 13:10 VBG Base Excess 1.8 mmol/L (0.0-2.0) 07/24/17 13:10 VBG Potassium 4.5 mmol/L (3.6-5.2) 07/24/17 13:10 Sodium 128.0 mmol/L (132-148) L 07/24/17 13:10 Chloride 95.0 mmol/L (98-107) L 07/24/17 13:10 Glucose 467 mg/dL (75-110) H* 07/24/17 13:10 Lactate 3.6 mmol/L (0.7-2.1) H 07/24/17 13:10 FiO2 21.0 % 07/24/17 13:10 Blood Gas Comments Vbg 07/24/17 13:10 Crit Value Called To Livan rader r.n. 07/24/17 13:10 Crit Value Called By Lala 07/24/17 13:10 Crit Value Read Back Y 07/24/17 13:10 Blood Gas Notified Time 1432 07/24/17 13:10 Sodium 135 mmol/l (132-148) 07/24/17 19:37 Potassium 4.6 MMOL/L (3.6-5.0) 07/24/17 19:37 Chloride 97 mmol/L (98-107) L 07/24/17 19:37 Carbon Dioxide 26 mmol/L (22-30) 07/24/17 19:37 Anion Gap 17 (10-20) 07/24/17 19:37 BUN 20 mg/dl (9-20) 07/24/17 19:37 Creatinine 0.8 mg/dl (0.8-1.5) 07/24/17 19:37 Est GFR ( Amer) > 60 07/24/17 19:37 Est GFR (Non-Af Amer) > 60 07/24/17 19:37 POC Glucose (mg/dL) 125 mg/dL (65-110) H 07/27/17 05:35 Random Glucose 338 mg/dL (75-110) H 07/24/17 19:37 Hemoglobin A1c 10.1 % (4.2-6.5) H 07/24/17 21:13 Lactic Acid 1.4 MMOL/L (0.7-2.1) 07/25/17 10:51 Calcium 8.8 mg/dL (8.4-10.2) 07/24/17 19:37 Phosphorus 4.1 mg/dl (2.5-4.5) 07/24/17 19:37 Magnesium 1.6 MG/DL (1.6-2.3) 07/24/17 19:37 Total Bilirubin 0.6 mg/dl (0.2-1.3) 07/24/17 19:37 AST 23 U/L (17-59) 07/24/17 19:37 ALT 29 U/L (21-72) 07/24/17 19:37 Alkaline Phosphatase 55 U/L (38-126) 07/24/17 19:37 Troponin I 0.0270 ng/mL (0.00-0.120) 07/24/17 14:15 Total Protein 7.9 G/DL (6.3-8.2) 07/24/17 19:37 Albumin 4.5 g/dL (3.5-5.0) 07/24/17 19:37 Globulin 3.5 gm/dL (2.2-3.9) 07/24/17 19:37 Albumin/Globulin Ratio 1.3 (1.0-2.1) 07/24/17 19:37 Triglycerides 77 mg/DL (0-149) 07/24/17 21:13 Cholesterol 168 mg/dL (0-199) 07/24/17 21:13 LDL Cholesterol Direct 90 mg/dL (0-129) 07/24/17 21:13 HDL Cholesterol 52 MG/DL (30-70) 07/24/17 21:13 Venous Blood Potassium 4.5 mmol/L (3.6-5.2) 07/24/17 13:10 Urine Color Straw (YELLOW) 07/24/17 14:05 Urine Clarity Clear (Clear) 07/24/17 14:05 Urine pH 6.0 (5.0-8.0) 07/24/17 14:05 Ur Specific Hooks 1.026 (1.003-1.030) 07/24/17 14:05 Urine Protein 100 mg/dL (NEGATIVE) 07/24/17 14:05 Urine Glucose (UA) >=500 mg/dL (Normal) 07/24/17 14:05 Urine Ketones 80 mg/dL (NEGATIVE) 07/24/17 14:05 Urine Blood Small (NEGATIVE) 07/24/17 14:05 Urine Nitrate Negative (NEGATIVE) 07/24/17 14:05 Urine Bilirubin Negative (NEGATIVE) 07/24/17 14:05 Urine Urobilinogen 0.2-1.0 mg/dL (0.2-1.0) 07/24/17 14:05 Ur Leukocyte Esterase Neg Jennifer/uL (Negative) 07/24/17 14:05 Urine RBC (Auto) 6 /hpf (0-3) H 07/24/17 14:05 Urine Microscopic WBC < 1 /hpf (0-5) 07/24/17 14:05 Ur Squamous Epith Cells < 1 /hpf (0-5) 07/24/17 14:05 Urine Opiates Screen Negative (NEGATIVE) 07/24/17 14:05 Urine Methadone Screen Negative (NEGATIVE) 07/24/17 14:05 Ur Barbiturates Screen Negative (NEGATIVE) 07/24/17 14:05 Ur Phencyclidine Scrn Negative (NEGATIVE) 07/24/17 14:05 Ur Amphetamines Screen Negative (NEGATIVE) 07/24/17 14:05 U Benzodiazepines Scrn Negative (NEGATIVE) 07/24/17 14:05 U Oth Cocaine Metabols Negative (NEGATIVE) 07/24/17 14:05 U Cannabinoids Screen Negative (NEGATIVE) 07/24/17 14:05 Alcohol, Quantitative < 10 mg/dl (0-10) 07/24/17 14:15 - Hospital Course Hospital Course: 61 YO M w/ PMH of IDDM2, HTN, HLD, diabetic neuropathy and recurrent diabetic gastroparesis presented to the ER with abdominal pain and PO intolernce. PAtients blood sugar on admission was 467. During patients admission was aggressively hydrated, was given insulin and pain medications. Patient is feeling much better today, has been tolerating normal diet. - Patient has a whitish colored coating on his tounge, will need to be treated outpatient for oral candidiasis - Patient is stable for discharge. Discharge Exam - Head Exam Head Exam: NORMAL INSPECTION - ENT Exam Additional comments: Whitish coating over his tounge - Respiratory Exam Respiratory Exam: NORMAL BREATHING PATTERN. absent: Rales, Rhonchi, Wheezes - Cardiovascular Exam Cardiovascular Exam: REGULAR RHYTHM, +S1, +S2 - GI/Abdominal Exam GI & Abdominal Exam: Normal Bowel Sounds, Soft. 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 Smith ) on discharge. - Advised to continue taking home medications as prescribed by patients Loan Processing Supervisor. - Patient has been advised to be compliant with a Diabetic diet and take medication daily - Please follow up with Dr. Smith to follow up with rash on face if persist and treatment for oral thrush from uncontrolled diabetes Referrals: Quincy Smith MD [Family Provider] -
== END 2017-07-27 11:55 | disposition home or self-care (01) | DRG 74 ==
LOC: H.ER 12:51 → H.ERHOLD 15:10 → H.TEL 18:52
PROVIDERS: ADMIT Family Medicine; ATTEND Family Medicine
DX: E11.43 Type 2 diabetes mellitus with diabetic autonomic (poly)neuropathy (principal); E87.2 Acidosis; R65.10 Systemic inflammatory response syndrome (SIRS) of non-infectious origin without acute organ dysfunction; B37.0 Candidal stomatitis; E11.65 Type 2 diabetes mellitus with hyperglycemia; E86.0 Dehydration; K31.84 Gastroparesis; Z91.041 Radiographic dye allergy status; I10 Essential (primary) hypertension; E78.00 Pure hypercholesterolemia, unspecified; D72.829 Elevated white blood cell count, unspecified; Z79.4 Long term (current) use of insulin; E78.5 Hyperlipidemia, unspecified; R00.0 Tachycardia, unspecified

== ENCOUNTER 2018-11-14 00:23 | Inpatient (IN) | payer OTHER ==
[2018-11-14 00:23] VITALS: BMI 34.0
[2018-11-14] MEDS ORDERED: Sodium Chloride 0.9% 1,000 ML IV STA (00:37)
[2018-11-14] MEDS ORDERED: Insulin Regular 100 units/ml IV ONE (00:37)
[2018-11-14] MEDS ORDERED: Insulin Regular 100 units/ml ONE ×2 (00:55→09:34)
[2018-11-14] MEDS ORDERED: Morphine 4 MG/ML VIAL IVP ONE ×2 (01:00→02:48)
[2018-11-14] MEDS ORDERED: Morphine 4 MG/ML VIAL ONE ×2 (01:02→03:01)
--- NOTE | 2018-11-14 01:13 | ED PDOC ---
HPI: Abdomen Time Seen by Provider: 11/14/18 00:33 Chief Complaint (Nursing): Abdominal Pain Chief Complaint (Provider): Abdominal Pain History Per: Patient History/Exam Limitations: no limitations Onset/Duration Of Symptoms: Hrs (@ 1pm today ) Current Symptoms Are (Timing): Still Present Additional Complaint(s): Baljinder Pulido is a 62 year old male with a past medical history of HTN, gastroparesis and multiple admissions for gastroparesis, who presents to the emergency department complaining of abdominal pain, associated with multiple episodes of vomiting that started at 1300 today. Patient states he has had x20 episodes of vomiting, non bilious and non bloody. He denies having any chest pain, shortness of breath, fever, or cough. Patient reports he has been admitted in the past for gastroparetic attack and intractable vomiting. PMD: Quincy Mcdonald Past Medical History Reviewed: Historical Data, Nursing Documentation, Vital Signs Vital Signs: Last Vital Signs Temp 99 F 11/14/18 00:33 Pulse 120 H 11/14/18 00:33 Resp 16 11/14/18 00:33 BP 168/90 H 11/14/18 00:33 Pulse Ox 98 11/14/18 00:33 - Medical History PMH: Diabetes, HTN, Hypercholesterolemia, Kidney Stones, Pancreatitis Denies: HIV, Chronic Kidney Disease, Sexually Transmitted Disease - Surgical History Surgical History: Cholecystectomy - Family History Family History: States: [place] (Father of heart attack) - Social History Current smoker - smoking cessation education provided: No Ex-Smoker (has not smoked in the last 12 months): No Alcohol: None Drugs: Denies - Home Medications Home Medications: Ambulatory Orders Medication Instructions Recorded Pioglitazone [Actos] 30 mg PO DAILY 08/14/16 Insulin Lispro [Humalog (Insulin 30 units SC TID 12/28/16 Lispro)] Atorvastatin [Lipitor] 10 mg PO DAILY 01/28/17 Famotidine [Pepcid] 20 mg PO BID 01/28/17 Lisinopril [Zestril] 10 mg PO HS 01/28/17 MetFORMIN [glucoPHAGE] 1,000 mg PO BID 01/28/17 Metoclopramide [Reglan] 10 mg PO Q8H 01/28/17 Metoprolol Tartrate [Lopressor] 25 mg PO BID 01/28/17 Gabapentin [Neurontin] 300 mg PO TID cap 01/31/17 amLODIPine [Norvasc] 10 mg PO DAILY 07/24/17 Insulin Detemir [Levemir] 55 unit SC HS #1 unit 07/27/17 - Allergies Allergies/Adverse Reactions: Allergies Allergy/AdvReac Type Severity Reaction Status Date / Time iodine Allergy URTICARIA Verified 05/09/17 00:09 Review of Systems ROS Statement: Except As Marked, All Systems Reviewed And Found Negative Constitutional: Negative for: Fever Cardiovascular: Negative for: Chest Pain Respiratory: Negative for: Cough Gastrointestinal: Positive for: Nausea, Vomiting, Abdominal Pain Physical Exam - Reviewed Nursing Documentation Reviewed: Yes Vital Signs Reviewed: Yes - Physical Exam Appears: Positive for: Non-toxic, No Acute Distress Head Exam: Positive for: ATRAUMATIC, NORMOCEPHALIC Skin: Positive for: Normal Color, Warm, Dry Eye Exam: Positive for: Normal appearance, EOMI, PERRL ENT: Positive for: Other (dry mucous membranes ) Neck: Positive for: Normal, Painless ROM, Supple Cardiovascular/Chest: Positive for: Regular Rate, Rhythm. Negative for: Murmur Respiratory: Positive for: Normal Breath Sounds. Negative for: Respiratory Distress Gastrointestinal/Abdominal: Positive for: Tenderness (epigastric tenderness ), Other (protuberant) Extremity: Positive for: Normal ROM. Negative for: Pedal Edema, Deformity Neurological/Psych: Positive for: Awake, Alert. Negative for: Motor/Sensory Deficits - Laboratory Results Result Diagrams: 11/14/18 02:48 11/14/18 08:50 - ECG O2 Sat by Pulse Oximetry: 98 (RA) Pulse Ox Interpretation: Normal - Critical Care Total Time (In Min): 30 Documented Critical Care: Time excludes all time spent performint seperately billable procedures Medical Decision Making Medical Decision Making: Time: 00:51 Impression: 62 year old male presenting with gastroparesis and intractable vomiting. Plan: --CMP --Lact acid, Plasma --Lipase --Troponin I --ED urine dipstick --CBC with differential --Insulin Human Regular 10 units IV --Reglan 10 mg IVPB --Morphine 10 mg IVP --Sodium Chloride 1,000 ml --Zofran 4 mg IM --Heplock Insertion --Accucheck --Urinalysis Labs rviewed sig fro elevated WBC and blood glucose. Patient will be admitted as d/w Dr binu Ellis Diabetic Gastroparesis, Hyperglycemia Fair - Scribe Attestation: Documented by Lino Berry, acting as a scribe Amanda Spears MD. Provider Scribe Attestation: All medical record entries made by the Scribe were at my direction and pers onally dictated by me. I have reviewed the chart and agree that the record accurately reflects my personal performance of the history, physical exam, medical decision making, and the department course for this patient. I have also personally directed, reviewed, and agree with the discharge instructions and disposition. Disposition - Clinical Impression Clinical Impression: Hypertension, Diabetes, Gastroparesis - Patient ED Disposition Is Patient to be Admitted: Yes - Disposition Disposition Time: 02:30 Condition: STABLE - POA Present On Arrival: Poor Glycemic Control
[2018-11-14 03:12] LABS: BASO # 0.1 K/uL (0.0-0.2); BASO % 0.6 % (0.0-2.0); HEMOGLOBIN 14.8 g/dL (12.0-18.0); LYMPH % 4.4 % (20.0-40.0); MEAN CORPUSCULAR HEMOGLOBIN 25.6 pg (27.0-31.0); MEAN CORPUSCULAR HGB CONC 32.4 g/dL (33.0-37.0); MONO # 0.8 K/uL (0.0-0.8); MONO % 3.7 % (0.0-10.0); NEUT # 20.7 K/uL (1.8-7.0); NEUT % 91.3 % (50.0-75.0); PLATELET COUNT 305 K/uL (130-400); RBC 5.76 Mil/uL (4.40-5.90); RED CELL DISTRIBUTION WIDTH 16.2 % (11.5-14.5); WHITE BLOOD COUNT 22.6 K/uL (4.8-10.8)
[2018-11-14 03:31] LABS: ALB/GLOB RATIO 1.1 (1.0-2.1); ALBUMIN 5.3 g/dL (3.5-5.0); ALT/SGPT 26 U/L (21-72); AST/SGOT 33 U/L (17-59); BLOOD UREA NITROGEN 19 mg/dl (9-20); CALCIUM 10.5 mg/dL (8.4-10.2); GFR NON-AFRICAN AMERICAN > 60; LIPASE 113 U/L (23-300)
[2018-11-14 04:21] LABS: ANISOCYTOSIS SLIGHT; BANDS 3 % (0-2); LYMPHOCYTE 4 % (20-50); MONOCYTE 4 % (0-10); NEUTROPHIL 89 % (42-75); PLATELET ESTIMATE NORMAL (NORMAL); TOTAL CELLS COUNTED 100
[2018-11-14 04:22] LABS: TOXIC GRANULATION PRESENT
[2018-11-14] MEDS ORDERED: Iohexol 240 (50 ml) PO ONE (05:42)
--- NOTE | 2018-11-14 05:52 | CP.PCM.HP ---
<Gamaliel Genao - Last Filed: 11/14/18 06:03> History of Present Illness - History of Present Illness History of Present Illness: 62 y/o M with a PMHx of IDDM2, HTN, HLD, gastroparesis, nephrolithiasis and diabetic neuropathy presented to ED c/o severe diffuse abdominal pain, nausea and vomiting since last afternoon. Pain is described as pressure and cramping, diffuse, non-radiating and 10/10 intensity. Pt reports >20 episodes of non- bloody vomiting. Pt has previous similar episodes of intractable vomiting presumed to be from gastroparesis. No ill contacts. No recent travel. Pt denies fever, chills, headache, chest pain, SOB, palpitations, dysuria. PMD:Dr. Mcdonald Allergies: IV contrast (hives) PMH: uncontrolled DM, Gastroparesis, HTN, HLD, Diabetic neuropathy, nephrolithiasis and pancreatitis PSHx: denied FHx: Mother-Breast Ca, Aunt-Leukemia, denies other Ca Social: hx of substance abuse (now clean), former smoker ED Course: --Vitals: BP 168/90, HR 120 --CBC showed leukocytosis, CMP showed mild hyperkalemia and hyperglycemia. --troponin neg --Lipase negative --Morphine, Insulin, Reglan, Zofran and IV NSS were administered. Present on Admission - Present on Admission Any Indicators Present on Admission: No Review of Systems - Constitutional Constitutional: absent: Fever - EENT Nose/Mouth/Throat: absent: Nasal Congestion, Nasal Discharge, Sore Throat, Neck Pain, Neck Mass - Cardiovascular Cardiovascular: absent: Chest Pain, Dyspnea, Palpitations - Respiratory Respiratory: absent: Cough, Dyspnea, Hemoptysis - Gastrointestinal Gastrointestinal: Abdominal Pain, Nausea, Vomiting. absent: Diarrhea - Genitourinary Genitourinary: absent: Dysuria, Flank Pain, Hematuria, Pyuria, Nocturia Past Patient History - Infectious Disease Hx of Infectious Diseases: None - Tetanus Immunizations Tetanus Immunization: Unknown - Past Medical History & Family History Past Medical History?: Yes - Past Social History Alcohol: None Drugs: Denies - CARDIAC Hx Hypercholesterolemia: Yes Hx Hypertension: Yes - PULMONARY Hx Respiratory Disorders: No - NEUROLOGICAL Hx Neurological Disorder: No - HEENT Hx HEENT Problems: No - RENAL Hx Chronic Kidney Disease: No Hx Kidney Stones: Yes - ENDOCRINE/METABOLIC Hx Endocrine Disorders: Yes (DM) Hx Diabetes Mellitus Type 2: Yes Other/Comment: diabetic neuropathy - HEMATOLOGICAL/ONCOLOGICAL Hx Human Immunodeficiency Virus (HIV): No - INTEGUMENTARY Hx Dermatological Problems: No - MUSCULOSKELETAL/RHEUMATOLOGICAL Hx Falls: No - GASTROINTESTINAL Hx Pancreatitis: Yes - GENITOURINARY/GYNECOLOGICAL Hx Sexually Transmitted Disorders: No - PSYCHIATRIC Hx Psychophysiologic Disorder: Yes Hx Substance Use: Yes - SURGICAL HISTORY Hx Cholecystectomy: Yes - ANESTHESIA Hx Anesthesia: Yes Hx Anesthesia Reactions: No Hx Malignant Hyperthermia: No Meds Allergies/Adverse Reactions: Allergies Allergy/AdvReac Type Severity Reaction Status Date / Time iodine Allergy URTICARIA Verified 05/09/17 00:09 Physical Exam - Constitutional Appears: No Acute Distress - Head Exam Head Exam: ATRAUMATIC, NORMAL INSPECTION, NORMOCEPHALIC - Eye Exam Eye Exam: EOMI - ENT Exam ENT Exam: Mucous Membranes Dry - Neck Exam Neck exam: Positive for: Full Rom, Normal Inspection. Negative for: Meningismus - Respiratory Exam Respiratory Exam: NORMAL BREATHING PATTERN. absent: Rhonchi, Wheezes, Respiratory Distress - Cardiovascular Exam Cardiovascular Exam: REGULAR RHYTHM, +S1, +S2 - GI/Abdominal Exam GI & Abdominal Exam: Distended (mild), Normal Bowel Sounds, Soft, Tenderness (diffuse). absent: Guarding, Hypoactive Bowel Sounds, Organomegaly, Rebound, Rigid - Extremities Exam Extremities exam: Positive for: full ROM. Negative for: calf tenderness - Neurological Exam Neurological exam: Alert, Oriented x3 Results - Vital Signs Recent Vital Signs: Last Vital Signs Temp 99 F 11/14/18 00:33 Pulse 120 H 11/14/18 00:33 Resp 16 11/14/18 00:33 BP 168/90 H 11/14/18 00:33 Pulse Ox 98 11/14/18 01:18 - Labs Result Diagrams: 11/14/18 02:48 11/14/18 02:48 Labs: Laboratory Results - last 24 hr 11/14/18 11/14/18 11/14/18 00:29 02:48 02:48 WBC 22.6 H RBC 5.76 Hgb 14.8 Hct 45.5 MCV 79.0 L MCH 25.6 L MCHC 32.4 L RDW 16.2 H Plt Count 305 MPV 9.0 Neut % (Auto) 91.3 H Lymph % (Auto) 4.4 L [place] % (Auto) 3.7 Eos % (Auto) 0.0 Baso % (Auto) 0.6 Neut # (Auto) 20.7 H Lymph # (Auto) 1.0 [place] # (Auto) 0.8 Eos # (Auto) 0.0 Baso # (Auto) 0.1 Neutrophils % (Manual) 89 H Band Neutrophils % 3 H Lymphocytes % (Manual) 4 L Monocytes % (Manual) 4 Toxic Granulation Present Platelet Estimate Normal Anisocytosis (manual) Slight Sodium 137 Potassium 5.3 H Chloride 93 L Carbon Dioxide 23 Anion Gap 26 H BUN 19 Creatinine 0.8 Est GFR ( Amer) > 60 Est GFR (Non-Af Amer) > 60 POC Glucose (mg/dL) 385 H Random Glucose 457 H* D Lactic Acid Calcium 10.5 H Total Bilirubin 0.7 AST 33 ALT 26 Alkaline Phosphatase 90 Troponin I < 0.0120 Total Protein 10.1 H Albumin 5.3 H Globulin 4.7 H Albumin/Globulin Ratio 1.1 Lipase 113 11/14/18 02:48 WBC RBC Hgb Hct MCV MCH MCHC RDW Plt Count MPV Neut % (Auto) Lymph % (Auto) [place] % (Auto) Eos % (Auto) Baso % (Auto) Neut # (Auto) Lymph # (Auto) [place] # (Auto) Eos # (Auto) Baso # (Auto) Neutrophils % (Manual) Band Neutrophils % Lymphocytes % (Manual) Monocytes % (Manual) Toxic Granulation Platelet Estimate Anisocytosis (manual) Sodium Potassium Chloride Carbon Dioxide Anion Gap BUN Creatinine Est GFR ( Amer) Est GFR (Non-Af Amer) POC Glucose (mg/dL) Random Glucose Lactic Acid 1.9 Calcium Total Bilirubin AST ALT Alkaline Phosphatase Troponin I Total Protein Albumin Globulin Albumin/Globulin Ratio Lipase Assessment & Plan - Assessment and Plan (Free Text) Assessment: 62 y/o M with a PMHx of IDDM2, HTN, HLD, gastroparesis, nephrolithiasis and diabetic neuropathy is admitted for evaluation and management of intractable vomiting and severe diffuse abdominal pain. PLAN: >Intractable vomiting/Severe abdominal pain --Afebrile, alight tachycardia, leukocytosis, --Likely gastroparesis vs possible bowel obstruction. --CT Abdomen w/out contrast ordered --NPO except for meds and IV fluid maintenance. --Regaln for nausea PRN --Toradol for pain PRN --IV Pantoprazole BID. >Hyperkalemia --Unknown etiology --Expected hypokalemia. --Will repeat BMP. >IDDM --Uncontrolled --C/w basal Insulin --ISS and hypoglycemia protocol. --Hold metformin >HLD --Continue with home meds. >HTN --Continue with home meds. --Monitor vitals. >DVT Prophylaxis --SCD's --Lovenox SC daily Case discussed with Dr Arce. Chadwick PGY-2 - Date & Time Date: 11/14/18 Time: 05:45 <Shaun Arce - Last Filed: 11/14/18 10:25> Results - Vital Signs Recent Vital Signs: Last Vital Signs Temp 99 F 11/14/18 00:33 Pulse 134 H 11/14/18 09:35 Resp 28 H 11/14/18 06:44 BP 170/84 H 11/14/18 09:35 Pulse Ox 99 11/14/18 06:44 - Labs Result Diagrams: 11/14/18 02:48 11/14/18 08:50 Labs: Laboratory Results - last 24 hr 11/14/18 11/14/18 11/14/18 00:29 02:48 02:48 WBC 22.6 H RBC 5.76 Hgb 14.8 Hct 45.5 MCV 79.0 L MCH 25.6 L MCHC 32.4 L RDW 16.2 H Plt Count 305 MPV 9.0 Neut % (Auto) 91.3 H Lymph % (Auto) 4.4 L [place] % (Auto) 3.7 Eos % (Auto) 0.0 Baso % (Auto) 0.6 Neut # (Auto) 20.7 H Lymph # (Auto) 1.0 [place] # (Auto) 0.8 Eos # (Auto) 0.0 Baso # (Auto) 0.1 Neutrophils % (Manual) 89 H Band Neutrophils % 3 H Lymphocytes % (Manual) 4 L Monocytes % (Manual) 4 Toxic Granulation Present Platelet Estimate Normal Anisocytosis (manual) Slight Sodium 137 Potassium 5.3 H Chloride 93 L Carbon Dioxide 23 Anion Gap 26 H BUN 19 Creatinine 0.8 Est GFR ( Amer) > 60 Est GFR (Non-Af Amer) > 60 POC Glucose (mg/dL) 385 H Random Glucose 457 H* D Lactic Acid Calcium 10.5 H Total Bilirubin 0.7 AST 33 ALT 26 Alkaline Phosphatase 90 Troponin I < 0.0120 Total Protein 10.1 H Albumin 5.3 H Globulin 4.7 H Albumin/Globulin Ratio 1.1 Lipase 113 Urine Color Urine Clarity Urine pH Ur Specific [place] Urine Protein Urine Glucose (UA) Urine Ketones Urine Blood Urine Nitrate Urine Bilirubin Urine Urobilinogen Ur Leukocyte Esterase Urine RBC (Auto) Urine Microscopic WBC Ur Squamous Epith Cells 11/14/18 11/14/18 11/14/18 02:48 06:35 06:42 WBC RBC Hgb Hct MCV MCH MCHC RDW Plt Count MPV Neut % (Auto) Lymph % (Auto) [place] % (Auto) Eos % (Auto) Baso % (Auto) Neut # (Auto) Lymph # (Auto) [place] # (Auto) Eos # (Auto) Baso # (Auto) Neutrophils % (Manual) Band Neutrophils % Lymphocytes % (Manual) Monocytes % (Manual) Toxic Granulation Platelet Estimate Anisocytosis (manual) Sodium Potassium Chloride Carbon Dioxide Anion Gap BUN Creatinine Est GFR ( Amer) Est GFR (Non-Af Amer) POC Glucose (mg/dL) 463 H* Random Glucose Lactic Acid 1.9 Calcium Total Bilirubin AST ALT Alkaline Phosphatase Troponin I Total Protein Albumin Globulin Albumin/Globulin Ratio Lipase Urine Color Yellow Urine Clarity Clear Urine pH 6.0 Ur Specific [place] 1.026 Urine Protein 100 Urine Glucose (UA) >=500 Urine Ketones 80 Urine Blood Small Urine Nitrate Negative Urine Bilirubin Negative Urine Urobilinogen 0.2-1.0 Ur Leukocyte Esterase Neg Urine RBC (Auto) 7 H Urine Microscopic WBC < 1 Ur Squamous Epith Cells < 1 11/14/18 08:50 WBC RBC Hgb Hct MCV MCH MCHC RDW Plt Count MPV Neut % (Auto) Lymph % (Auto) [place] % (Auto) Eos % (Auto) Baso % (Auto) Neut # (Auto) Lymph # (Auto) [place] # (Auto) Eos # (Auto) Baso # (Auto) Neutrophils % (Manual) Band Neutrophils % Lymphocytes % (Manual) Monocytes % (Manual) Toxic Granulation Platelet Estimate Anisocytosis (manual) Sodium 135 Potassium 5.1 H Chloride 97 L Carbon Dioxide 19 L Anion Gap 24 H BUN 21 H Creatinine 0.9 Est GFR ( Amer) > 60 Est GFR (Non-Af Amer) > 60 POC Glucose (mg/dL) Random Glucose 502 H* Lactic Acid Calcium 9.6 Total Bilirubin AST ALT Alkaline Phosphatase Troponin I Total Protein Albumin Globulin Albumin/Globulin Ratio Lipase Urine Color Urine Clarity Urine pH Ur Specific [place] Urine Protein Urine Glucose (UA) Urine Ketones Urine Blood Urine Nitrate Urine Bilirubin Urine Urobilinogen Ur Leukocyte Esterase Urine RBC (Auto) Urine Microscopic WBC Ur Squamous Epith Cells Attending/Attestation - Attestation I have personally seen and examined this patient.: Yes I have fully participated in the care of the patient.: Yes I have reviewed all pertinent clinical information: Yes Notes (Text): 11/14/18 10:18 I saw, examined and discussed this patient with Dr Genao. I agree with the assessment and plan outlined above. This is a 62 years old male with hx of DM II, Gastroparesis,diabetic Neophropathy and pancreatitis. This is a recurrent visit with abdominal pain and profuse vomiting. We will treat for Intractible vomiting and abdominal pain caused by the gastroparesis.Treat Diabetes mellitus with hyperglycemia. The potassium will be lowered by the Insulin treating the hyperglycemis. Shaun Arce MD
[2018-11-14] MEDS ORDERED: Glucagon Recombinant 1 mg Inj IM PRN (06:27)
[2018-11-14] MEDS ORDERED: Dextrose 50% SYRINGE Inj (50 ml) IV PRN (06:27)
[2018-11-14] MEDS: Sodium Chloride 0.9% 1,000 ML IV SCH ×2 (06:30→13:42)
[2018-11-14] MEDS ORDERED: Insulin Lispro (humaLOG) 100 Units/ml Inj SC SCH (07:00)
[2018-11-14 07:48] LABS: SQUAMOUS EPITHIAL < 1 /hpf (0-5); URINE BILIRUBIN NEGATIVE (NEGATIVE); URINE CLARITY CLEAR (Clear); URINE COLOR YELLOW (YELLOW); URINE GLUCOSE (UA) >=500 mg/dL (NEGATIVE); URINE LEUKOCYTE ESTERASE NEG Leu/uL (Negative); URINE PROTEIN 100 mg/dL (NEGATIVE); URINE UROBILINOGEN 0.2-1.0 mg/dL (0.2-1.0)
[2018-11-14 08:08] LABS: URINE BLOOD SMALL (NEGATIVE)
--- NOTE | 2018-11-14 09:10 | CARD ---
APPROVED REPORT Date of service: 11/14/2018 EKG Measurement Heart [id number] <Conclusion> Sinus tachycardia Otherwise normal ECG
[2018-11-14 09:30] LABS: BLOOD UREA NITROGEN 21 mg/dl (9-20); CALCIUM 9.6 mg/dL (8.4-10.2); GFR NON-AFRICAN AMERICAN > 60
[2018-11-14] MEDS: Enoxaparin 40 mg Syringe SC SCH (09:33)
[2018-11-14] MEDS: Insulin Lispro (humaLOG) 100 Units/ml Inj SC SCH ×3 (10:10→21:42)
--- NOTE | 2018-11-14 12:09 | CT ---
Date of service: 11/14/2018 PROCEDURE: CT Abdomen and Pelvis without intravenous contrast HISTORY: Severe abdominal pain, nausea and vomiting COMPARISON: 05/09/2017. TECHNIQUE: CT scan of the abdomen and pelvis was performed without administration of intravenous contrast. Oral contrast was not administered. Coronal and sagittal reformatted images were obtained. Radiation dose: Total exam DLP = 867.07 mGy-cm. This CT exam was performed using one or more of the following dose reduction techniques: Automated exposure control, adjustment of the mA and/or kV according to patient size, and/or use of iterative reconstruction technique. FINDINGS: LOWER THORAX: The visualized lungs are clear. LIVER: Mild hepatomegaly and fatty liver. No gross lesion or ductal dilatation. GALLBLADDER AND BILE DUCTS: Surgically absent. PANCREAS: Mild diffuse fatty atrophy. No gross lesion or ductal dilatation. SPLEEN: Normal in size. ADRENALS: Normal in size. No discrete nodule. KIDNEYS AND URETERS: Both kidneys are normal in size. There are small nonobstructing stones in the right interpolar region, the largest measures 5 mm. There is cortical scarring in the right interpolar region. There is no left nephrolithiasis. There is no hydronephrosis. There is nonspecific bilateral perinephric fat stranding. VASCULATURE: Normal in caliber. No aortic aneurysm. No aortic atherosclerotic calcification or mural plaque present. BOWEL: Evaluation of the bowel is limited in the absence of oral contrast. The small bowel loops are normal in caliber. There are scattered diverticula in the left colon. There is apparent mild circumferential mural thickening in the proximal descending colon there is moderate amount of stool in the ascending and transverse colon. APPENDIX: Not visualized but no inflammatory changes in the right lower quadrant. PERITONEUM: No free fluid. No free air. There is significant mesenteric fat stranding in the left mid abdomen lateral to the descending colon. Similar changes to a lesser extent are also identified in the right upper quadrant mesentery. LYMPH NODES: No enlarged lymph nodes. BLADDER: Well distended and normal in appearance. REPRODUCTIVE: The prostate gland is normal in size. BONES: No acute fracture. There is redemonstration of chronic osteoporotic compression deformities in the T11 and L3 vertebral bodies. OTHER FINDINGS: None. IMPRESSION: Inflammatory fat stranding in the left mesenteric fat lateral to the descending colon and to a lesser extent in the right upper quadrant mesentery could represent nonspecific inflammatory changes versus mesenteric panniculitis. Clinical follow-up is advised. Scattered colonic diverticula. Apparent mild circumferential mural thickening in the proximal to mid descending colon is nonspecific and could be related to underdistention however early acute diverticulitis is also a consideration. Clinical follow-up is advised.
[2018-11-14] MEDS: Insulin Detemir 100 Units/ml Inj SC SCH (21:45)
[2018-11-15] MEDS: Insulin Lispro (humaLOG) 100 Units/ml Inj SC SCH ×4 (05:00→21:47)
[2018-11-15 05:21] LABS: BASO # 0.1 K/uL (0.0-0.2); BASO % 0.3 % (0.0-2.0); BLOOD UREA NITROGEN 22 mg/dl (9-20); CALCIUM 8.6 mg/dL (8.4-10.2); EOS # 0.1 K/uL (0.0-0.7); EOS % 0.5 % (0.0-4.0); GFR NON-AFRICAN AMERICAN > 60; LYMPH # 1.6 K/uL (1.0-4.3); LYMPH % 7.2 % (20.0-40.0); MEAN CELL VOLUME 79.3 fl (80.0-94.0); MEAN CORPUSCULAR HEMOGLOBIN 25.2 pg (27.0-31.0); MEAN CORPUSCULAR HGB CONC 31.8 g/dL (33.0-37.0); MEAN PLATELET VOLUME 9.1 fl (7.2-11.7); MONO # 1.6 K/uL (0.0-0.8); MONO % 7.3 % (0.0-10.0); NEUT # 18.7 K/uL (1.8-7.0); NEUT % 84.7 % (50.0-75.0); RBC 4.98 Mil/uL (4.40-5.90); RED CELL DISTRIBUTION WIDTH 15.7 % (11.5-14.5); WHITE BLOOD COUNT 22.1 K/uL (4.8-10.8)
[2018-11-15 05:40] LABS: HEMOGLOBIN 12.6 g/dL (12.0-18.0)
[2018-11-15] MEDS: Sodium Chloride 0.9% 1,000 ML IV SCH (06:56)
--- NOTE | 2018-11-15 08:08 | CP.PCM.PN ---
Subjective - Date & Time of Evaluation Date of Evaluation: 11/15/18 Time of Evaluation: 09:28 - Subjective Subjective: Patient seen and examined this morning. Patient continues to complain of abdominal pain. He was able to tolerated small amount of liquid diet without nausea or vomitting. Denies any f/c/diarrhea, cp or sob. Will continue to advance diet as tolerated. Objective - Vital Signs/Intake and Output Vital Signs (last 24 hours): Temp Pulse Resp BP Pulse Ox 98.3 F 109 H 20 175/73 H 98 11/15/18 07:42 11/15/18 07:42 11/15/18 07:42 11/15/18 07:42 11/15/18 07:42 - Medications Medications: Current Medications Amlodipine Besylate (Norvasc) 10 mg PO DAILY [facility] Last Admin: 11/14/18 09:35 Dose: 10 mg Atorvastatin Calcium (Lipitor) 10 mg PO DAILY [facility] Last Admin: 11/14/18 09:34 Dose: 10 mg Dextrose (Dextrose 50% Inj) 0 ml IV STAT PRN; Protocol PRN Reason: Hypoglycemia Protocol Dextrose (Glutose 15) 0 gm PO ONCE PRN; Protocol PRN Reason: Hypoglycemia Protocol Enoxaparin Sodium (Lovenox) 40 mg SC DAILY [facility]; Protocol Last Admin: 11/14/18 09:33 Dose: Not Given Gabapentin (Neurontin) 300 mg PO TID [facility] Last Admin: 11/14/18 18:26 Dose: 300 mg Glucagon (Glucagen Diagnostic Kit) 0 mg IM STAT PRN; Protocol PRN Reason: Hypoglycemia Protocol Insulin Detemir (Levemir) 55 units SC [facility] Last Admin: 11/14/18 21:45 Dose: 55 u Insulin Human Lispro (Humalog) 0 units SC Q6 [facility]; Protocol Last Admin: 11/15/18 05:00 Dose: 4 unit Ketorolac Tromethamine (Toradol) 30 mg IVP Q6 PRN PRN Reason: Pain, severe (8-10) Last Admin: 11/14/18 18:34 Dose: 30 mg Ketorolac Tromethamine (Toradol) 15 mg IVP Q6 PRN PRN Reason: Pain, moderate (4-7) Lisinopril (Zestril) 10 mg PO [facility] Last Admin: 11/14/18 21:46 Dose: 10 mg Metoclopramide HCl (Reglan) 10 mg IVP Q6 PRN PRN Reason: Nausea/Vomiting Metoprolol Tartrate (Lopressor) 50 mg PO BID [facility] Morphine Sulfate (Morphine) 2 mg IVP Q4 PRN PRN Reason: Pain, severe (8-10) Last Admin: 11/15/18 06:43 Dose: 2 mg Pantoprazole Sodium (Protonix Inj) 40 mg IVP BID [facility] Last Admin: 11/14/18 18:26 Dose: 40 mg - Labs Labs: 11/15/18 05:02 11/15/18 05:02 - Head Exam Head Exam: ATRAUMATIC, NORMAL INSPECTION - Eye Exam Eye Exam: EOMI - ENT Exam ENT Exam: Mucous Membranes Moist - Respiratory Exam Respiratory Exam: Clear to Ausculation Bilateral - Cardiovascular Exam Cardiovascular Exam: +S1, +S2 Additional comments: tachycardia - GI/Abdominal Exam GI & Abdominal Exam: Soft, Tenderness, Normal Bowel Sounds. absent: Rigid - Extremities Exam Extremities Exam: absent: Calf Tenderness - Neurological Exam Neurological Exam: Alert, Awake, Oriented x3 - Psychiatric Exam Psychiatric exam: Normal Mood - Skin Skin Exam: Dry Assessment and Plan - Assessment and Plan (Free Text) Assessment: 62 y/o male with PMH IDDM2, HTN, HLD, gastroparesis, nephrolithiasis ,chronic pancreatitis, diabetic neuropathy, narcotic dependency ,chronically elevated WBC presented to ER with severe diffuse abdominal pain. Severe diffuse abdominal pain (possibly due to exacerbation of chronic pancreatitis) -C/w IVF -C.w protonix -C/w reglan prn -C/w pain med regimen -Abd CT showed pancreatic atrophy with chronic inflammatory changes, possible diverticulosis -Serial abd exams; will consider antibiotics HTN (uncontrolled, chronic) -Hydralazine 25 mg TID PO added -C/w metoprolol 50mg PO BID -C/w zestril 10mg PO HS -Cont to monitor vs HLD (controlled, chronic) -C/w lipitor DM (uncontrolled, chronic) -C/w levemir 55 units SC HS -C/w ISS and hypoglycemia protocol. DVT Prophylaxis -SCD's -Lovenox 40 mgSC daily
[2018-11-15] MEDS: Enoxaparin 40 mg Syringe SC SCH ×2 (08:59→09:05)
[2018-11-15] MEDS: Insulin Detemir 100 Units/ml Inj SC SCH (21:49)
[2018-11-16] MEDS: Insulin Lispro (humaLOG) 100 Units/ml Inj SC SCH ×4 (05:52→21:26)
[2018-11-16 06:28] LABS: MEAN CELL VOLUME 79.2 fl (80.0-94.0); MEAN CORPUSCULAR HEMOGLOBIN 25.5 pg (27.0-31.0); MEAN CORPUSCULAR HGB CONC 32.2 g/dL (33.0-37.0); RBC 5.48 Mil/uL (4.40-5.90); RED CELL DISTRIBUTION WIDTH 15.6 % (11.5-14.5); WHITE BLOOD COUNT 21.8 K/uL (4.8-10.8)
[2018-11-16 06:30] LABS: ALB/GLOB RATIO 1.2 (1.0-2.1); ALBUMIN 3.9 g/dL (3.5-5.0); ALT/SGPT 29 U/L (21-72); AST/SGOT 33 U/L (17-59); BLOOD UREA NITROGEN 15 mg/dl (9-20); CALCIUM 8.5 mg/dL (8.4-10.2); GFR NON-AFRICAN AMERICAN > 60
--- NOTE | 2018-11-16 07:49 | CP.PCM.PN ---
Subjective - Date & Time of Evaluation Date of Evaluation: 11/16/18 Time of Evaluation: 09:46 - Subjective Subjective: Patient was seen and examined this morning at bedside. Patient continues to complain of abdominal pain, but has been able to tolerated PO diet without and nausea, vomitting or worsening abdominal pain. Denes f/c/cp or sob. Objective - Vital Signs/Intake and Output Vital Signs (last 24 hours): Temp Pulse Resp BP Pulse Ox 98.1 F 82 18 181/70 H 96 11/15/18 19:58 11/15/18 21:49 11/15/18 19:58 11/15/18 21:49 11/15/18 19:58 - Medications Medications: Current Medications Amlodipine Besylate (Norvasc) 10 mg PO DAILY [facility] Last Admin: 11/15/18 08:58 Dose: 10 mg Atorvastatin Calcium (Lipitor) 10 mg PO DAILY [facility] Last Admin: 11/15/18 09:00 Dose: 10 mg Dextrose (Dextrose 50% Inj) 0 ml IV STAT PRN; Protocol PRN Reason: Hypoglycemia Protocol Dextrose (Glutose 15) 0 gm PO ONCE PRN; Protocol PRN Reason: Hypoglycemia Protocol Enoxaparin Sodium (Lovenox) 40 mg SC DAILY [facility]; Protocol Last Admin: 11/15/18 09:05 Dose: Not Given Gabapentin (Neurontin) 300 mg PO TID [facility] Last Admin: 11/15/18 16:52 Dose: 300 mg Glucagon (Glucagen Diagnostic Kit) 0 mg IM STAT PRN; Protocol PRN Reason: Hypoglycemia Protocol Hydralazine HCl (Apresoline) 50 mg PO TID [facility] Insulin Detemir (Levemir) 55 units SC [facility] Last Admin: 11/15/18 21:49 Dose: 55 u Insulin Human Lispro (Humalog) 0 units SC Q6 [facility]; Protocol Last Admin: 11/16/18 05:52 Dose: 4 unit Ketorolac Tromethamine (Toradol) 30 mg IVP Q6 PRN PRN Reason: Pain, severe (8-10) Last Admin: 11/14/18 18:34 Dose: 30 mg Ketorolac Tromethamine (Toradol) 15 mg IVP Q6 PRN PRN Reason: Pain, moderate (4-7) Lisinopril (Zestril) 10 mg PO [facility] Last Admin: 11/15/18 21:49 Dose: 10 mg Metoclopramide HCl (Reglan) 10 mg IVP Q6 PRN PRN Reason: Nausea/Vomiting Metoprolol Tartrate (Lopressor) 50 mg PO BID [facility] Last Admin: 11/15/18 16:53 Dose: 50 mg Morphine Sulfate (Morphine) 2 mg IVP Q4 PRN PRN Reason: Pain, severe (8-10) Last Admin: 11/16/18 07:03 Dose: 2 mg Pantoprazole Sodium (Protonix Inj) 40 mg IVP BID [facility] Last Admin: 11/15/18 16:51 Dose: 40 mg - Labs Labs: 11/16/18 05:00 11/16/18 05:00 - Constitutional Appears: Non-toxic - Head Exam Head Exam: ATRAUMATIC - ENT Exam ENT Exam: Mucous Membranes Moist - Respiratory Exam Respiratory Exam: NORMAL BREATHING PATTERN - Cardiovascular Exam Cardiovascular Exam: Tachycardia, +S1, +S2 - GI/Abdominal Exam GI & Abdominal Exam: Soft, Tenderness, Normal Bowel Sounds. absent: Rigid - Extremities Exam Extremities Exam: absent: Calf Tenderness - Neurological Exam Neurological Exam: Alert, Awake, Oriented x3 - Psychiatric Exam Psychiatric exam: Normal Mood - Skin Skin Exam: Dry Assessment and Plan - Assessment and Plan (Free Text) Assessment: 62 y/o male with PMH IDDM2, HTN, HLD, gastroparesis, nephrolithiasis ,chronic pancreatitis, diabetic neuropathy, narcotic dependency ,chronically elevated WBC as admitted for intractable abdominal pain 1. Intractable abdominal pain( likely due to chronic pancreatitis) -Cont with carb consistent diet -Continue with pain management , PPI, Reglan PRN CT abdomen and pelvis showing no acute findings- Inflammatory fat stranding in the left mesenteric fat lateral to the descending colon and to a lesser extent in the right upper quadrant mesentery could represent nonspecific inflammatory changes versus mesenteric panniculitis. Clinical follow-up is advised. Scattered colonic diverticula. Apparent mild circumferential mural thickening in the proximal to mid descending colon is nonspecific and could be related to underdistention however early acute diverticulitis is also a consideration. 2.Uncontrolled DM type II -Hgb A1c 11.4 -Accu today better controlled -Continue Levemir , Accuchecks, insulin coverage 3. Uncontrolled hypertension Continue Norvasc, Lisinopril Continue Metoprolol to 50 mg PO BID Continue 50 mg po TID 4. Chronic leukocytosis of unclear etiology 5.Diabetic neuropathy Continue Gabapentin 6.Obesity BMI 31 7. HLD COntinue lipitor 8. DVT prophylaxis -Lovenox 40 mgSC daily
[2018-11-16] MEDS: Enoxaparin 40 mg Syringe SC SCH (08:29)
[2018-11-16] MEDS: Insulin Detemir 100 Units/ml Inj SC SCH (21:28)
[2018-11-17] MEDS: Insulin Lispro (humaLOG) 100 Units/ml Inj SC SCH ×2 (05:19→12:26)
[2018-11-17 05:34] LABS: BASO # 0.1 K/uL (0.0-0.2); BASO % 0.7 % (0.0-2.0); EOS # 0.6 K/uL (0.0-0.7); EOS % 3.5 % (0.0-4.0); HEMOGLOBIN 13.8 g/dL (12.0-18.0); LYMPH # 2.5 K/uL (1.0-4.3); LYMPH % 14.8 % (20.0-40.0); MEAN CELL VOLUME 79.7 fl (80.0-94.0); MEAN CORPUSCULAR HEMOGLOBIN 25.4 pg (27.0-31.0); MEAN CORPUSCULAR HGB CONC 31.9 g/dL (33.0-37.0); MEAN PLATELET VOLUME 9.2 fl (7.2-11.7); MONO # 1.7 K/uL (0.0-0.8); MONO % 10.5 % (0.0-10.0); NEUT # 11.7 K/uL (1.8-7.0); NEUT % 70.5 % (50.0-75.0); NRBC % 0.1 % (0.0-0.0); RBC 5.44 Mil/uL (4.40-5.90); RED CELL DISTRIBUTION WIDTH 15.6 % (11.5-14.5)
[2018-11-17 05:40] LABS: BLOOD UREA NITROGEN 18 mg/dl (9-20); CALCIUM 8.5 mg/dL (8.4-10.2); GFR NON-AFRICAN AMERICAN > 60
[2018-11-17 06:00] LABS: WHITE BLOOD COUNT 16.6 K/uL (4.8-10.8)
[2018-11-17 07:11] VITALS: RESP 18
[2018-11-17 08:21] VITALS: TEMP 98.4; O2SAT 94
[2018-11-17] MEDS: Enoxaparin 40 mg Syringe SC SCH (08:24)
--- NOTE | 2018-11-17 11:22 | CP.PCM.DIS ---
Provider - Provider Date of Admission: 11/14/18 02:57 Attending physician: Shaun Arce Primary care physician: Quincy Mcdonald MD Time Spent in preparation of Discharge (in minutes): 30 Hospital Course - Lab Results Lab Results: Micro Results 11/14/18 08:00 Blood-Venous Blood Culture - Preliminary NO GROWTH AFTER 3 DAYS 11/14/18 07:50 Blood-Venous Blood Culture - Preliminary NO GROWTH AFTER 3 DAYS Most Recent Lab Values WBC 16.6 K/uL (4.8-10.8) H 11/17/18 04:18 RBC 5.44 Mil/uL (4.40-5.90) 11/17/18 04:18 Hgb 13.8 g/dL (12.0-18.0) 11/17/18 04:18 Hct 43.3 % (35.0-51.0) 11/17/18 04:18 MCV 79.7 fl (80.0-94.0) L 11/17/18 04:18 MCH 25.4 pg (27.0-31.0) L 11/17/18 04:18 MCHC 31.9 g/dL (33.0-37.0) L 11/17/18 04:18 RDW 15.6 % (11.5-14.5) H 11/17/18 04:18 Plt Count 262 K/uL (130-400) 11/17/18 04:18 MPV 9.2 fl (7.2-11.7) 11/17/18 04:18 Neut % (Auto) 70.5 % (50.0-75.0) 11/17/18 04:18 Lymph % (Auto) 14.8 % (20.0-40.0) L 11/17/18 04:18 [place] % (Auto) 10.5 % (0.0-10.0) H 11/17/18 04:18 Eos % (Auto) 3.5 % (0.0-4.0) 11/17/18 04:18 Baso % (Auto) 0.7 % (0.0-2.0) 11/17/18 04:18 Neut # (Auto) 11.7 K/uL (1.8-7.0) H 11/17/18 04:18 Lymph # (Auto) 2.5 K/uL (1.0-4.3) 11/17/18 04:18 [place] # (Auto) 1.7 K/uL (0.0-0.8) H 11/17/18 04:18 Eos # (Auto) 0.6 K/uL (0.0-0.7) 11/17/18 04:18 Baso # (Auto) 0.1 K/uL (0.0-0.2) 11/17/18 04:18 Neutrophils % (Manual) 89 % (42-75) H 11/14/18 02:48 Band Neutrophils % 3 % (0-2) H 11/14/18 02:48 Lymphocytes % (Manual) 4 % (20-50) L 11/14/18 02:48 Monocytes % (Manual) 4 % (0-10) 11/14/18 02:48 Toxic Granulation Present 11/14/18 02:48 Platelet Estimate Normal (NORMAL) 11/14/18 02:48 Anisocytosis (manual) Slight 11/14/18 02:48 Sodium 129 mmol/l (132-148) L 11/17/18 04:18 Potassium 3.5 MMOL/L (3.6-5.0) L 11/17/18 04:18 Chloride 96 mmol/L (98-107) L 11/17/18 04:18 Carbon Dioxide 24 mmol/L (22-30) 11/17/18 04:18 Anion Gap 13 (10-20) 11/17/18 04:18 BUN 18 mg/dl (9-20) 11/17/18 04:18 Creatinine 0.8 mg/dl (0.8-1.5) 11/17/18 04:18 Est GFR ( Amer) > 60 11/17/18 04:18 Est GFR (Non-Af Amer) > 60 11/17/18 04:18 POC Glucose (mg/dL) 266 mg/dL (65-110) H 11/17/18 05:10 Random Glucose 265 mg/dL (75-110) H 11/17/18 04:18 Hemoglobin A1c 11.4 % (4.2-6.5) H 11/15/18 05:02 Lactic Acid 1.9 mmol/L (0.7-2.1) 11/14/18 02:48 Calcium 8.5 mg/dL (8.4-10.2) 11/17/18 04:18 Phosphorus 2.9 mg/dl (2.5-4.5) 11/16/18 05:00 Magnesium 1.9 MG/DL (1.6-2.3) 11/16/18 05:00 Total Bilirubin 0.7 mg/dl (0.2-1.3) 11/16/18 05:00 AST 33 U/L (17-59) 11/16/18 05:00 ALT 29 U/L (21-72) 11/16/18 05:00 Alkaline Phosphatase 59 U/L (38-126) 11/16/18 05:00 Troponin I < 0.0120 ng/mL (0.00-0.120) 11/14/18 02:48 Total Protein 7.4 G/DL (6.3-8.2) 11/16/18 05:00 Albumin 3.9 g/dL (3.5-5.0) 11/16/18 05:00 Globulin 3.4 gm/dL (2.2-3.9) 11/16/18 05:00 Albumin/Globulin Ratio 1.2 (1.0-2.1) 11/16/18 05:00 Lipase 113 U/L (23-300) 11/14/18 02:48 Urine Color Yellow (YELLOW) 11/14/18 06:35 Urine Clarity Clear (Clear) 11/14/18 06:35 Urine pH 6.0 (5.0-8.0) 11/14/18 06:35 Ur Specific [place] 1.026 (1.003-1.030) 11/14/18 06:35 Urine Protein 100 mg/dL (NEGATIVE) 11/14/18 06:35 Urine Glucose (UA) >=500 mg/dL (NEGATIVE) 11/14/18 06:35 Urine Ketones 80 mg/dL (NEGATIVE) 11/14/18 06:35 Urine Blood Small (NEGATIVE) 11/14/18 06:35 Urine Nitrate Negative (NEGATIVE) 11/14/18 06:35 Urine Bilirubin Negative (NEGATIVE) 11/14/18 06:35 Urine Urobilinogen 0.2-1.0 mg/dL (0.2-1.0) 11/14/18 06:35 Ur Leukocyte Esterase Neg Jennifer/uL (Negative) 11/14/18 06:35 Urine RBC (Auto) 7 /hpf (0-3) H 11/14/18 06:35 Urine Microscopic WBC < 1 /hpf (0-5) 11/14/18 06:35 Ur Squamous Epith Cells < 1 /hpf (0-5) 11/14/18 06:35 - Hospital Course Hospital Course: 62 y/o male with PMH IDDM2, HTN, HLD, gastroparesis, nephrolithiasis ,chronic pancreatitis, diabetic neuropathy, narcotic dependency ,chronically elevated WBC as admitted for intractable abdominal pain. Patient was seen and examined this morning. Patient was able to tolerate PO diet without n/v/or abdominal pain. Discharged with FU with PCP. 1. Intractable abdominal pain CT abdomen and pelvis findings- Inflammatory fat stranding in the left mesenteric fat lateral to the descending colon and to a lesser extent in the right upper quadrant mesentery could represent nonspecific inflammatory changes versus mesenteric panniculitis. Clinical follow-up is advised. Scattered colonic diverticula. Apparent mild circumferential mural thickening in the proximal to mid descending colon is nonspecific and could be related to underdistention however early acute diverticulitis is also a consideration. 2.Uncontrolled DM type II -C/w home mdes 3. Uncontrolled hypertension Norvasc 10mg PO, Lisinopril 10mg PO QHS Metoprolol to 50 mg PO BID Hydralazine 50 mg po TID 4. Chronic leukocytosis of unclear etiology 5.Diabetic neuropathy 6.Obesity BMI 31 7. HLD Discharge Exam - Head Exam Head Exam: ATRAUMATIC - ENT Exam ENT Exam: Mucous Membranes Moist - Neck Exam Neck exam: Full Rom - Respiratory Exam Respiratory Exam: NORMAL BREATHING PATTERN - Cardiovascular Exam Cardiovascular Exam: REGULAR RHYTHM, +S1, +S2 - GI/Abdominal Exam GI & Abdominal Exam: Soft. absent: Rigid Additional comments: minimal tenderness, decreased from previously noted - Neurological Exam Neurological exam: Alert, Oriented x3 - Psychiatric Exam Psychiatric exam: Normal Mood - Skin Skin Exam: Dry Discharge Plan - Discharge Medications Prescriptions: hydrALAZINE [Apresoline] 50 mg PO TID 30 Days #90 tab Metoprolol Tartrate [Lopressor] 50 mg PO BID 30 Days #60 tab - Follow Up Plan Condition: STABLE Disposition: HOME/ ROUTINE Instructions: High Blood Pressure (DC), Acute Abdomen (Belly Pain), Adult (DC), The ABCs of Diabetes, Gastroparesis (Delayed Gastric Emptying) (DC) Additional Instructions: follow up with in 1 week Referrals: Quincy Mcdonald MD [Primary Care Provider] -
[2018-11-17 12:23] VITALS: BP 102/65; PULSE 74
== END 2018-11-17 15:06 | disposition home or self-care (01) | DRG 439 ==
LOC: H.ER 00:23 → H.ERHOLD 02:57 → H.TEL 15:49
PROVIDERS: ADMIT Internal Medicine; ATTEND Internal Medicine
DX: K86.1 Other chronic pancreatitis (principal); E87.1 Hypo-osmolality and hyponatremia; E11.43 Type 2 diabetes mellitus with diabetic autonomic (poly)neuropathy; K31.84 Gastroparesis; E11.65 Type 2 diabetes mellitus with hyperglycemia; Z79.4 Long term (current) use of insulin; I10 Essential (primary) hypertension; E78.00 Pure hypercholesterolemia, unspecified; Z91.041 Radiographic dye allergy status; E78.5 Hyperlipidemia, unspecified; E87.5 Hyperkalemia; Z87.891 Personal history of nicotine dependence; E66.9 Obesity, unspecified; Z68.31 Body mass index [BMI] 31.0-31.9, adult; D72.829 Elevated white blood cell count, unspecified